=== PATIENT | female | born 2005 | race Caucasian/White ===

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

== ENCOUNTER 2024-01-27 14:55 | Outpatient (OUT) | payer BC, SELFPAY ==
[2024-01-27 15:23] LABS: Bilirubin Urine NEGATIVE (NEGATIVE); Blood Urine NEGATIVE (NEGATIVE); Clarity Urine CLEAR (CLEAR); Color Urine LT. YELLOW (YELLOW); Glucose Urine UA NEGATIVE (NEGATIVE); Ketones Urine NEGATIVE (NEGATIVE); Leukocyte Esterase Urine NEGATIVE (NEGATIVE); Nitrite Urine NEGATIVE (NEGATIVE); Protein Urine NEGATIVE (NEG/TRACE); Urobilinogen Urine 0.2 EU/dL (0.2-1.0)
[2024-01-27 15:25] LABS: Urine Microscopic Indicated NO
== END 2024-01-27 14:56 | disposition home or self-care (01) ==
LOC: LAB 14:56
PROVIDERS: PCP Nurse Practitioner; Visit Provider Nurse Practitioner
DX: N30.00 Acute cystitis without hematuria (principal)
CPT/HCPCS: 81003; 87086

== ENCOUNTER 2024-02-20 19:09 | Emergency (ER) | payer BC, SELFPAY ==
--- OUTSIDE RECORDS SUMMARY | 2024-02-20 19:15 | XMS_ITS | CCD ---
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 Mechanic Name Role Phone JEFFERY DELAROSA Unavailable Unavailable WayRené richey Attending Unavailable Waynar Merritt Mariah Referring Unavailable Waynar, Merritt Mariah Primary Care Unavailable Marino Espino Attending Unavailabl e SrinivasMarino Referring Unavailabl e Waynar, Merritt Mariah Primary Care Unavailable Ramon, Lula Aparicio Attending Unavailable Ramon, Lula Aparicio Referring Unavailable Ramon, Lula Alessandra Primary Care Unavailable Marino Espino Attending Unavailabl e SrinivasMarino Referring Unavailabl e Ramon, Lula Alessandra Primary Care Unavailable Marino Espino Attending Unavailabl e Marino Espino Referring Unavailabl e Ramon, Lula Alessandra Primary Care Unavailable Ramon, Lula Aparicio Attending Unavailable Ramon, Lula Alessandra Referring Unavailable Ramon, Lula Alessandra Primary Care Unavailable Ramon, Lula Aparicio Attending Unavailable Ramon, Lula Aparicio Referring Unavailable Ramon, Lula Alessandra Primary Care Unavailable Marino Espino Attending Unavailabl e Ramon, Lula Alessandra Primary Care Unavailable Ramon, Lula A Unavailable Unavailable Bourisseau, John Unavailable Unavailable Ramon, Lula A Unavailable Unavailable Ramon, Lula A Unavailable Unavailable Bourisseau, John Unavailable Unavailable Linda Whitmore Unavailable Unavailable Ramon, Lula A Unavailable Unavailable Marino Espino Unavailable Unavailable Ramon, Lula A Unavailable Unavailable Unavailable Ramon, Lula A Unavailable Unavailable Unavailable Unknown, Unknown Unavailable Unavailable AICHHOLZ, DENTAL FLOSS PACKER KIM Primary Care Unavailable AUSTYN, DR ASHFORD Consulting Unavailable AUSTYN, DR ASHFORD Attending Unavailable AUSTYN, DR ASHFORD Admitting Unavailable SHERRELL BOWEN Consulting Unavailable AICHHOLZ, DENTAL FLOSS PACKER KIM Primary Care Unavailable AICHHOLZ, DENTAL FLOSS PACKER KIM Consulting Unavailable AICHHOLZ, DENTAL FLOSS PACKER KIM Attending Unavailable AICHHOLZ, DENTAL FLOSS PACKER KIM Admitting Unavailable AICHHOLZ, DENTAL FLOSS PACKER KIM Primary Care Unavailable AICHHOLZ, DENTAL FLOSS PACKER KIM Consulting Unavailable AICHHOLZ, DENTAL FLOSS PACKER KIM Attending Unavailable AICHHOLZ, DENTAL FLOSS PACKER KIM Admitting Unavailable Hari ZARAGOZA, [facility] Primary Care Provider RODRIGUEZ WEAVER Attending Unavailab le AICHHOLZ, KIM Referring Unavailable AICHHOLZ, KIM Attending Unavailable RODRIGUEZ WEAVER Attending Unavailab le AICHHOLZ, KIM Attending Unavailable AICHHOLZ, KIM Attending Unavailable CHELSEA CALIX Attending Unavailable CALIX, CHELSEA Velasquez Attending Unavailable AICHHOLZ, KIM Attending Unavailable DANIELLE-TYSERODRIGUEZ Hill Attending Unavailab CHELSEA Kline Attending Unavailable AICHHOLZ, KIM Attending Unavailable RODRIGUEZ WEAVER Attending Unavailab Lolita Saba Attending Unavailable Allergies Allergy Classification Reported Allergen(s) Allergy Type Date of Onset Reaction(s) Facility Sulfamethoxazole / Trimethoprim (3 sources) Sulfamethoxazole / Trimethoprim; Translations: [Bactrim] Drug Allergy Rash [facility] Work Phone: (20 sources) Sulfamethoxazole / Trimethoprim; Translations: [Bactrim] Drug Allergy 4 Rash [facility] Repository (3 sources) Sulfamethoxazole / Trimethoprim Drug Allergy 3 Rash, Other [facility] Medications Current Medications Medication Drug Class(es) Dates Sig (Normalized) Sig (Original) Ethinyl Estradiol / Levonorgestrel (3 sources) Progestin, Estrogen, Progestin-containin g Intrauterine Device Start: 04-24-2023 levonorgestrel-e thinyl estradiol (Jolessa) 0.15-0.03 MG tablet Indications: Uses control Take 1 tablet by mouth 1 (one) time each day at the same time. 28 tablet 0 04/24/2023 Active FLUoxetine 20 mg oral capsule (20 sources) Serotonin Reuptake Inhibitor Start: 07-06-2023 take 2 capsules by mouth once daily FLUoxetine (PROzac) 20 MG capsule Indications: Anxiety TAKE 2 CAPSULES BY MOUTH DAILY 60 capsule 1 07/06/2023 Active Start: 05-10-2018 take 2 capsules by m outh once daily FLUoxetine HCl - 20 MG Oral Capsule 2 po daily Quantity: 180 Refills: 1 Ordered: 18-Jul-2022 Becky WHITEN-DINING CAR WAITER/WAITRESS, John Start : 10-May-2018 Active Start: 05-10-2018 take 1 capsule by mo ut once daily FLUoxetine HCl - 10 MG Oral Capsule 1 po daily (take with 20 mg) Quantity: 30 Refills: 0 Ordered: 19-Nov-2021 Becky WHITEN-DINING CAR WAITER/WAITRESS, John Start : 10-May-2018 Active Start: 05-10-2018 take 1 capsule by mo [facility] once daily FLUoxetine HCl - 20 MG Oral Capsule 1 po daily (take wtih 10 mg) Quantity: 30 Refills: 0 Ordered: 19-Nov-2021 Becky WHITEN-DINING CAR WAITER/WAITRESS, John Start : 10-May-2018 Active glycopyrrolate 1 mg oral tablet (2 sources) Start: 07-18-2023 take 2 tablets by mouth in the morning glycopyrrolate (Robinul) 1 MG tablet Take 2 mg by mouth in the morning. 0 07/18/2023 Active 24 hr guanFACINE 4 mg extended release oral tablet (20 sources) Central alpha-2 Adrenergic Agonist Start: 03-06-2023 take 1 tablet by mouth every twenty-four hours in the morning guanFACINE (Intuniv) 4 mg 24 hr tablet Take 4 mg by mouth in the morning. 0 03/06/2023 Active Start: 02-27-2017 take 1 tablet by kashif every twenty-four hours in the morning guanFACINE HCl ER 4 MG Oral Tablet Extended Release 24 Hour 1 po in AM Quantity: 90 Refills: 0 Ordered: 18-Jul-2022 Becky PROPERTY MANAGEMENT ACCOUNTANT-DINING CAR WAITER/WAITRESS, John Start : 27-Feb-2017 Active lisdexamfetamine dimesylate 70 mg oral capsule (16 sources) Central Nervous System Stimulant Start: 08-04-2023 End: 09-03-2023 take 1 capsule by mouth in the morning lisdexamfetamine (Vyvanse) 70 MG capsule Indications: ADHD (attention deficit hyperactivity disorder), combined type (CMS/HCC) Take 1 capsule (70 mg) by mouth in the morning. 30 capsule 0 08/04/2023 09/03/2023 Active Start: 02-12-2022 take 1 capsule by mo uth in the morning Vyvanse 70 MG Oral Capsule 1 po at 9 am Quantity: 30 Refills: 0 Ordered: 10-Sep-2022 Jasonurisseau PROPERTY MANAGEMENT ACCOUNTANT-DINING CAR WAITER/WAITRESS, John Start : 15-May-2022 Active Start: 01-23-2022 take 1 capsule by mo uth in the morning Vyvanse 60 MG Oral Capsule 1 po in AM Quantity: 30 Refills: 0 Ordered: 23-Jan-2022 Nikossseau PROPERTY MANAGEMENT ACCOUNTANT-DINING CAR WAITER/WAITRESS, John Start : 23-Jan-2022 Active LORazepam 0.5 mg oral tablet (16 sources) Benzodiazepine Start: 08-13-2023 take 1 tablet by mouth every six hours as needed for anxiety and anxiety and anxiety LORazepam (Ativan) 0.5 MG tablet Indications: Anxiety Take 1 tablet (0.5 mg) by mouth every 6 (six) hours if needed for anxiety 30 tablet 0 08/13/2023 Active Start: 08-13-2023 take 1 tablet by kashif th every six hours as needed for anxiety and anxiety and anxiety LORazepam (Ativan) 0.5 MG tablet Indications: Anxiety Take 1 tablet (0.5 mg) by mouth every 6 (six) hours if needed for anxiety 30 tablet 0 08/13/2023 Active Start: 12-13-2021 LORazepam 0.5 MG Oral Tablet 1/2 - 1 po daily prn anixety Quantity: 30 Refills: 0 Ordered: 18-Jul-2022 Charleseasharath PROPERTY MANAGEMENT ACCOUNTANT-DINING CAR WAITER/WAITRESS, John Start : 13-Dec-2021 Active Start: 12-13-2021 LORazepam 0.5 MG Oral Tablet 1/2 - 1 po BID prn anixety Quantity: 30 Refills: 0 Ordered: 12-Feb-2022 Charleseasharath PROPERTY MANAGEMENT ACCOUNTANT-DINING CAR WAITER/WAITRESS, John Start : 13-Dec-2021 Active End: 08-13-2023 take 1 tablet by mouth every six hours as needed for anxiety LORazepam (Ativan) 0.5 MG tablet Take 0.5 mg by mouth every 6 (six) hours if needed for anxiety. 0 08/13/2023 Discontinued (Reorder) PARoxetine hydrochloride 10 mg oral tablet (2 sources) Serotonin Reuptake Inhibitor Start: 08-13-2023 End: 08-13-2023 PARoxetine (Paxil) 10 MG tablet Indications: Anxiety 1 tablet for one week then increase to 2 tabs 60 tablet 1 08/13/2023 08/13/2023 Discontinued (Reorder) 24 hr divalproex sodium 250 mg extended release oral tablet (3 sources) Mood Stabilizer, Anti-epileptic Agent Start: 12-08-2022 End: 08-13-2023 take 1 tablet by mouth every twenty-four hours at bedtime divalproex (Depakote ER) 250 MG 24 hr tablet Take 250 mg by mouth at bedtime. 0 12/08/2022 08/13/2023 Discontinued Completed/Discontinued Medications Medication Drug Class(es) Dates Sig (Normalized) Sig (Original) acetaminophen 325 mg oral capsule (3 sources) Tylenol 325 MG O ral Capsule Refills: 0 DO Active acetaminophen 21.7 mg/ml / dextromethorphan hydrobromide 0.667 mg/ml / phenylephrine hydrochloride 0.333 mg/ml oral solution (2 sources) Uncompetitive V-xwgtww-X-asparta te Receptor Antagonist, Sigma-1 Agonist, alpha-1 Adrenergic Agonist Vicks DayQuil Cold & Flu 10-5-325 MG/15ML Oral Liquid Quantity: 0 Refills: 0 Ordered: 08-Aug-2020 DO Active 24 hr amphetamine 18.8 mg extended release oral tablet (20 sources) Central Nervous System Stimulant Start: 08-27-2020 take 1 tablet by mouth in the morning Adzenys XR-ODT 18.8 MG Oral Tablet Extended Release Disintegrating 1 po in AM Quantity: 30 Refills: 0 Ordered: 04-Sep-2021 Renzo Maney Start : 21-Nov-2020 Active Start: 12-09-2019 take 1 tablet by kashif th in the morning Adzenys XR-ODT 18.8 MG Oral Tablet Extended Release Disintegrating 1 po in AM Quantity: 30 Refills: 0 Becky SANABRIA-John BEGUM Start : 09-Dec-2019 Active Start: 10-17-2019 take 1 tablet by kashif th in the morning Adzenys XR-ODT 18.8 MG Oral Tablet Extended Release Disintegrating 1 po in AM Quantity: 30 Refills: 0 Becky SANABRIA-John BEGUM Start : 17-Oct-2019 Active Start: 08-12-2019 take 1 tablet by kashif th in the morning Adzenys XR-ODT 18.8 MG Oral Tablet Extended Release Disintegrating 1 po in AM Quantity: 30 Refills: 0 Becky SANABRIA-SHY John Start : 12-Aug-2019 Active Start: 03-30-2017 take 1 tablet by kashif th in the morning Adzenys XR-ODT 18.8 MG Oral Tablet Extended Release Disintegrating 1 po in AM Quantity: 30 Refills: 0 Becky SANABRIA-SHY John Start : 30-Mar-2017 Active amphetamine aspartate 2.5 mg / amphetamine sulfate 2.5 mg / dextroamphetamine saccharate 2.5 mg / dextroamphetamine sulfate 2.5 mg oral tablet (19 sources) Central Nervous System Stimulant Start: 07-20-2017 take 1 tablet by mouth once daily Amphetamine-Dextroamphetamine 10 MG Oral Tablet TAKE 1 TABLET BY MOUTH EVERY DAY at 1:00pm Quantity: 30 Refills: 0 Ordered: 12-Jul-2021 Becky SANABRIA-John BEGUM Start : 20-Jul-2017 Active cefdinir 300 mg oral capsule (19 sources) Cephalosporin Antibacterial Start: 03-25-2021 take 1 capsule by mouth twice daily Cefdinir 300 MG Oral Capsule TAKE 1 CAPSULE TWICE DAILY UNTIL GONE. Quantity: 20 Refills: 0 Ordered: 25-Mar-2021 Sania ZARAGOZA, Marino Kumar Start : 25-Mar-2021 Active doxycycline hyclate 100 mg oral capsule (1 source) Tetracycline-cla ss Drug Start: 04-20-2020 take 1 capsule by mouth once daily at mealtime Doxycycline Hyclate 100 MG Oral Capsule TAKE 1 CAPSULE BY MOUTH EVERY DAY WITH FOOD Quantity: 30 Refills: 0 Ordered: 20-Apr-2020 DO Start : 20-Apr-2020 Complete hydrocortisone 25 mg/ml topical cream (1 source) Corticosteroid Start: 02-07-2020 Hydrocortisone 2.5 % Externa l Cream APPLY to rash on face TWICE DAILY FOR 3 WEEKS then NEEDED Quantity: 28 Refills: 0 Ordered: 19-Apr-2020 DO Start : 07-Feb-2020 Complete ibuprofen 200 mg oral tablet (20 sources) Nonsteroidal Anti-inflammator y Drug Ibuprofen 200 MG Ora l Tablet Quantity: 0 Refills: 0 Ordered: 22-Mar-2021 DO Active Ibuprofen 100 MG /5ML Oral Suspension Refills: 0 DO Active melatonin 10 mg oral tablet (20 sources) Melatonin 10 MG Oral Tablet Quantity: 0 Refills: 0 Ordered: 08-Aug-2020 DO Active ofloxacin 3 mg/ml ophthalmic solution (13 sources) Quinolone Antimicrobial Start: 08-09-19 take 1 drop(s) into the eye(s) three times daily Ofloxacin 0.3 % Ophthalmic Solution Instill 1 drop into affected eye 3 times per day for 5 days Quantity: 1 Refills: 1 Ordered: 09-Aug-2021 Lula Navarro MD Start : 09-Aug-2021 Active progesterone 200 mg oral capsule (4 sources) Progesterone Start: 12-02-19 19 take 1 capsule by mouth once daily at bedtime Progesterone Micronized 200 MG Oral Capsule TAKE 1 CAPSULE BY MOUTH EVERY DAY AT BEDTIME FOR 10 DAYS Quantity: 30 Refills: 1 Lula Navarro MD Start : 01-Dec-2018 Active traZODone hydrochloride 50 mg oral tablet (17 sources) Serotonin Reuptake Inhibitor Start: 02-08-20 End: 08-13-19 24 traZODone HCl - 50 MG Oral Tablet 1 1/2 po at night Quantity: 45 Refills: 5 Ordered: 12-Feb-2021 John Mane Start : 08-Feb-2020 Active triamcinolone acetonide 1 mg/ml topical cream (20 sources) Corticosteroid Start: 12-27-19 20 Triamcinolone Acetonide 0.1 % External Cream APPLY AND RUB IN A THIN FILM TO AFFECTED AREAS TWICE DAILY.(AM AND PM). Quantity: 1 Refills: 1 Ordered: 27-Dec-2019 Mraino Lui MD Start : 27-Dec-2019 Active Problems Active Problems Problem Classification Problem Date Documented Date Episodic/Chronic Abdominal pain (4 sources) Pelvic and perineal pain; Translations: [PELVIC AND PERINEAL PAIN] Onset: 3 Episodic Allergic reactions (20 sources) Eczema; Translations: [Contact dermatitis and other eczema, unspecified cause] Episodic Anxiety disorders (20 sources) Panic attack; Translations: [Anxiety disorder] Onset: 3 05-26-2023 Chronic Comment on above: SERTRALINE STARTED 2 014. CURRENT DOSE 100 MG DAILY; Attention-deficit conduct and disruptive behavior disorders (20 sources) Attention deficit hyperactivity disorder, combined type; Translations: [Attention deficit disorder with hyperactivity] Onset: 3 05-26-2023 Chronic Comment on above: DIAGNOSED 02/2011. CU RRENT MEDS: AMPHETAMINE-DEXTROAMPHETAMINE 40 MG ( 30+10 ). QUANFACINE 2 MG; Attention-deficit, conduct, and disruptive behavior disorders (1 source) Attention-deficit hyperactivity disorder, unspecified type; Translations: [ADHD UNSPECIFIED TYPE] Onset: 3 Chronic Bacterial infection; unspecified site (1 source) Personal history of Methicillin resistant Staphylococcus aureus infection; Translations: [PERS HX METHICILLIN RSIST STAPH INF] Onset: 3 Episodic Blindness and vision defects (20 sources) Wears glasses; Translations: [Other specified conditions influencing health status] Episodic Disorders of lipid metabolism (20 sources) Mixed hypercholesterolemia and hypertriglyceridemia; Translations: [Mixed hyperlipidemia] Chronic Disorders usually diagnosed in infancy, childhood, or adolescence (3 sources) Autism spectrum disorder; Translations: [Autistic disorder] Onset: 3 05-26-2023 Chronic Menstrual disorders (20 sources) Oligomenorrhea; Translations: [Scanty or infrequent menstruation] Chronic Nutritional deficiencies (20 sources) Vitamin D deficiency; Translations: [Unspecified vitamin D deficiency] Chronic Other injuries and conditions due to external causes (5 sources) Open wound; Translations: [History of Bite or sting by insect] Episodic Other nutritional; endocrine; and metabolic disorders (4 sources) Childhood obesity; Translations: [BMI (body mass index), pediatric, greater than or equal to 95% for age] Chronic Other nutritional; endocrine; and metabolic disorders (20 sources) 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; Translations: [Dysmetabolic syndrome X] Chronic Comment on above: METFORMN 500 MG BID STARTED 08/2015; Other nutritional; endocrine; and metabolic disorders (20 sources) Lipids abnormal; Translations: [Unspecified disorder of lipoid metabolism] Chronic Other nutritional; endocrine; and metabolic disorders (4 sources) Metabolic syndrome; Translations: [METABOLIC SYNDROME] Onset: 2 Chronic Other nutritional; endocrine; and metabolic disorders (1 source) Morbid (severe) obesity due to excess calories; Translations: [MORBID SEVERE OBES D/T EXCESS CANDACE] Onset: 2 Chronic Other nutritional; endocrine; and metabolic disorders (3 sources) Body mass index 30+ - obesity; Translations: [Obesity, unspecified] Onset: 3 05-26-2023 Chronic Other nutritional; endocrine; and metabolic disorders (5 sources) 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; Translations: [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] Episodic Other nutritional; endocrine; and metabolic disorders (20 sources) Abnormal weight gain; Translations: [Abnormal weight gain] Episodic Other nutritional; endocrine; and metabolic disorders (20 sources) Childhood obesity; Translations: [Body Mass Index, pediatric, greater than or equal to 95th percentile for age] Episodic Other skin disorders (20 sources) Acanthosis nigricans; Translations: [Acquired acanthosis nigricans] Episodic Other upper respiratory disease (20 sources) Allergic rhinitis; Translations: [Allergic rhinitis, cause unspecified] Chronic Other upper respiratory infections (20 sources) Acute pharyngitis; Translations: [Acute upper respiratory infection] Resolved: Episodic Comment on above: Added by Problem Lis t Migration; 2013-06-03; Otitis media and related conditions (20 sources) Otitis; Translations: [Otitis media] Resolved: Episodic Residual codes; unclassified (4 sources) Lipids abnormal; Translations: [Lipids abnormal] Episodic Screening and history of mental health and substance abuse codes (20 sources) H/O: psychiatric disorder; Translations: [Personal history of other mental disorders] Episodic Skin and subcutaneous tissue infections (20 sources) Abscess; Translations: [Impetigo] Episodic Comment on above: MRSA BUTTOCK 08/2015; Unclassified (3 sources) CONTACT W/AND (SUSP) EXPOS COVID-19; Translations: [CONTACT W/AND (SUSP) EXPOS COVID-19] Onset: 2 Past or Other Problems Problem Classification Problem Date Documented Da te Episodic/Chronic Chronic obstructive pulmonary disease and bronchiectasis (20 sources) Laryngotracheobronc hitis; Translations: [Bronchitis, not specified as acute or chronic] Resolved: 06-03-2017 Episodic Inflammation; infection of eye (except that caused by tuberculosis or sexually transmitteddisease) (13 sources) Acute infectious conjunctivitis; Translations: [Other mucopurulent conjunctivitis] Resolved: 08-16-2021 Episodic Miscellaneous mental health disorders (20 sources) Emotional upset; Translations: [Other adjustment reactions with predominant disturbance of other emotions] Resolved: 08-19-2018 Chronic Mood disorders (3 sources) Depressive disorder; Translations: [Depression] Onset: 05-26-2023 Resolved: 05-26-2023 05-26-2023 Chronic Mycoses (20 sources) Candidiasis of vagina; Translations: [Candidiasis of vulva and vagina] Resolved: 06-03-2017 Episodic Other infections; including parasitic (20 sources) Infestation by Pediculus; Translations: [Pediculosis, unspecified] Resolved: 12-01-2018 Episodic Other infections; including parasitic (1 source) Pediculosis capitis; Translations: [Lice infested hair] Episodic Other injuries and conditions due to external causes (20 sources) Wound ; Translations: [Bite or sting by insect] Resolved: 08-03-2018 Episodic Other lower respiratory disease (20 sources) H/O: respiratory disease; Translations: [Personal history of other diseases of respiratory system] Resolved: 12-02-2019 Episodic Comment on above: Added by Problem Rosa Coleman; 2013-06-03; Other lower respiratory disease (20 sources) History of tonsillitis; Translations: [Personal history of other diseases of respiratory system] Resolved: 02-11-2018 Episodic Other lower respiratory disease (20 sources) History of clinical finding in subject; Translations: [Personal history of other diseases of respiratory system] Resolved: 12-01-2018 Episodic Other nervous system disorders (20 sources) History of otitis media; Translations: [Personal history of other disorders of nervous system and sense organs] Resolved: 06-03-2017 Episodic Other skin disorders (20 sources) Eruption; Translations: [Rash and other nonspecific skin eruption] Resolved: 08-03-2018 Episodic Other skin disorders (20 sources) H/O: skin disorder; Translations: [Personal history of diseases of skin and subcutaneous tissue] Resolved: 12-02-2019 Episodic Other skin disorders (20 sources) Localized eruption of skin; Translations: [Rash and other nonspecific skin eruption] Resolved: 08-03-2018 Episodic Other skin disorders (5 sources) Localized eruption of skin; Translations: [History of Localized skin eruption] Unclassified (4 sources) History of clinical finding in subject; Translations: [History of sore throat] Unclassified (4 sources) Patient encounter status; Translations: [Encounter for routine child health examination without abnormal findings] Unclassified (1 source) CONTACT W/AND (SUSP) EXPOS COVID-19; Translations: [CONTACT W/AND (SUSP) EXPOS COVID-19] Onset: 03-11-2022 Viral infection (20 sources) Influenza-like illness; Translations: [Influenza with other respiratory manifestations] Resolved: 12-01-2018 Episodic NEGATED: Highlighted row has not occurred!Residual codes; unclassified (20 sources) Disease Episodic Results Test Name Value Interpretation Reference Range Facility CULTURE URINEon 08-06-2022 CULTURE URINE Culture Observations : MODERATE GROWTH OF MIXED GENITAL ENIO. NO POTENTIAL PATHOGENS SEEN. Normal [facility] Comment on above: Performed By: #### U RCX #### [facility] [address] [place] [address] Dr. Chayito Rucker ER URINE PROFILEon 3 Bilirubin Ql (U) Negative Normal NEGATIVE [facility] Comment on above: Performed By: #### C BC #### [facility] [address] [place] [address] Dr. Chayito Rucker Clarity (U) CLEAR Normal CLEAR [facility] Comment on above: Performed By: #### C BC #### [facility] [address] [place] [address] Dr. Chayito Rucker Color (U) LT. YELLOW Normal YELLOW [facility] Comment on above: Performed By: #### C BC #### [facility] [address] [place] [address] Dr. Chayito Rucker ERUAHD A micrscopic examina tion will be performed if indicated. Normal [facility] Comment on above: Performed By: #### C BC #### [facility] [address] [place] [address] Dr. Chayito Rucker Glucose Ql (U) Negative Normal NEGATIVE [facility] Comment on above: Performed By: #### C BC #### [facility] [address] [place] [address] Dr. Chayito Rucker Hemoglobin Ql (U) Negative Normal NEGATIVE [facility] Comment on above: Performed By: #### C BC #### [facility] [address] [place] [address] Dr. Chayito Rucker Ketones Ql (U) Negative Normal NEGATIVE [facility] Comment on above: Performed By: #### C BC #### [facility] [address] [place] [address] Dr. Chayito Rucker LEUKOCYTES SMALL Abnormal NEGATIVE [facility] Comment on above: Performed By: #### C BC #### [facility] [address] [place] [address] Dr. Chayito Rucker Nitrite Ql (U) Negative Normal NEGATIVE [facility] Comment on above: Performed By: #### C BC #### [facility] [address] [place] [address] Dr. Chayito Rucker pH (U) 7.5 [pH] Normal 5-9 [facility] Comment on above: Performed By: #### C BC #### [facility] [address] [place] [address] Dr. Chayito Rucker SPEC GRAVITY 1.010 Normal 1.005-<=1.0 25 [facility] Comment on above: Performed By: #### C BC #### [facility] [address] [place] [address] Dr. Chayito Rucker UA PROTEIN Negative Normal NEGATIVE/ TRACE [facility] Comment on above: Performed By: #### C BC #### [facility] [address] [place] [address] Dr. Chayito Rucker UR MICRO IND NOT INDICATED Normal [facility] Comment on above: Performed By: #### C BC #### [facility] [address] [place] [address] Dr. Chayito Rucker Urobilinogen Qn (U) 0.2 {Faye'U}/dL Normal 0.2 - 1.0 [facility] [facility] Comment on above: Performed By: #### C BC #### [facility] [address] [address] [address] Chayito Rucker US PELVISon 08-06-2022 US PELVIS EXAMINATION: US PELV IS, 08/06/2022 1:34 PM EST HISTORY: Acute pelvic pain COMPARISON: None. TECHNIQUE: Ultrasound examination of the pelvis was performed transabdominally. FINDINGS: UTERUS: Anteverted. Normal size. No mass. Uterine size: 5.3 x 2.1 x 3.2 cm ENDOMETRIUM: No visualized abnormal thickening noting limitations of transabdominal technique. Maximum thickness: 4 mm RIGHT OVARY/ADNEXA: Grossly unremarkable. Resistive index of 0.2. Ovarian size: 1.7 x 1.9 x 2.4 cm; 4.0 ml LEFT OVARY/ADNEXA: Grossly unremarkable noting probable anechoic physiologic cyst. Resistive index of 0.5. Ovarian size: 2.7 x 1.6 x 2.3 cm; 5.1 mL FLUID: There is no abnormal free fluid in the cul-de-sac. IMPRESSION: Grossly unremarkable transabdominal pelvic sonogram. Electronically authenticated by: SHERRELL BOWEN Date: 2022-08-06 15:24 Normal [facility]27 SARS-CoV-2 (COVID-19) RNA OMI+probe Ql (Unsp spec) Not detected Normal NOT DETECTED [facility] Comment on above: Result Comment: When diagnostic testing is negative, the possibility of a false negative should be considered in the context of a patient's recent exposures and the presence of clinical signs and symptoms consistent with SARS-CoV-2. This test is not yet approved or cleared by the [place] FDA. When there are no FDA-approved or cleared tests available, and other criteria are met, FDA can make tests available under an emergency access mechanism called an Emergency Use Authorization (EUA). The EUA for this test is supported by the [place] of Health and Human Service's declaration that circumstances exist to justify the emergency use of in vitro diagnostics for the detection and/or diagnosis of the virus that causes COVID-19. This EUA will remain in effect for the duration of the COVID-19 declaration justifying emergency of IVDs, unless it is terminated or revoked by the FDA (after which the test may no longer be used). Performed By: #### C VDTB #### [facility] [address] [place] [address] Dr. Chayito Rucker INSULIN FREE AND TOTALon Free Insulin 24 uU/mL Critically high [facility] Comment on above: Result Comment: Refe ariel Range: Pubertal Children and Adults (fasting): 0 - 17 Performed By: #### I NSULT #### [facility] [address] [place] [address] Dr. Chayito Rucker Total Insulin 24 uU/mL Normal [facility] Comment on above: Result Comment: Non- Diabetic: In the absence of insulin- binding antibodies, the free and total insulin assays are equivalent. However, this assay is intended for use in diabetics with insulin autoantibody present. Measurement is performed on acid-treated samples and, therefore, the sensitivity and absolute values by this method may differ from our direct insulin ICMA. Insulin Dependent Diabetic Patients: Free Insulin levels vary depending on the capacity and affinity of circulating insulin-binding antibodies and the dose of insulin given to the patient. Total insulin levels represent free insulin and antibody bound insulin fractions. This test was developed and its performance characteristics determined by [employer]. It has not been cleared or approved by the Food and Drug Administration. Performed By: #### I NSULT #### [facility] [address] [place] [address] Dr. Chayito Rucker CBC AUTO DIFFon 11-15-2021 BASO # 0.0 103/ul Normal 0.0-0.1 [facility] Comment on above: Performed By: #### C BC #### [facility] [address] [place] [address] Dr. Chayito Rucker Basophils/100 WBC (Bld) 0.3 % Normal 0.2-2.0 [facility] Comment on above: Performed By: #### C BC #### [facility] [address] [place] [address] Dr. Chayito Rucker EO # 0.1 103/ul Normal 0.0-0.7 [facility] Comment on above: Performed By: #### C BC #### [facility] [address] [place] [address] Dr. Chayito Rucker Eosinophils/100 WBC (Bld) 1.5 % Normal 0.9-7.0 [facility] Comment on above: Performed By: #### C BC #### [facility] [address] [place] [address] Dr. Chayito Rucker Erythrocyte distribution width (RBC) [Ratio] 12.8 % Normal 11.0-15.0 [facility] Comment on above: Performed By: #### C BC #### [facility] [address] [place] [address] Dr. Chayito Rucker Hematocrit (Bld) [Volume fraction] 39.8 % Normal 36.0-48.0 [facility] Comment on above: Performed By: #### C BC #### [facility] [address] [place] [address] Dr. Chayito Rucker Hemoglobin (Bld) [Mass/Vol] 12.6 g/dL Normal 12.0-16.0 [facility] Comment on above: Performed By: #### C BC #### [facility] [address] [place] [address] Dr. Chayito Rucker IG # 0.03 10e3/ul Normal 0.00-0.03 [facility] Comment on above: Performed By: #### C BC #### [facility] [address] [place] [address] Dr. Chayito Rucker IG % 0.3 % Normal 0.0-0.5 [facility] Comment on above: Performed By: #### C BC #### [facility] [address] [place] [address] Dr. Chayito Rucker LYMPH # 3.7 103/ul Normal 1.2-3.8 [facility] Comment on above: Performed By: #### C BC #### [facility] [address] [place] [address] Dr. Chayito Rucker Lymphocytes/100 WBC (Bld) 40.6 % Normal 20.5-60.0 [facility] Comment on above: Performed By: #### C BC #### [facility] [address] [place] [address] Dr. Chayito Rucker MANUAL DIFF REQ NO Normal [facility] Comment on above: Performed By: #### C BC #### [facility] [address] [place] [address] Dr. Chayito Rucker MCH (RBC) [Entitic mass] 30.7 pg Normal 26.7-34.0 [facility] Comment on above: Performed By: #### C BC #### [facility] [address] [place] [address] Dr. Chayito Rucker MCHC (RBC) [Mass/Vol] 31.7 g/dL Normal 29.9-35.2 [facility] Comment on above: Performed By: #### C BC #### [facility] [address] [place] [address] Dr. Chayito Rucker MCV (RBC) [Entitic vol] 97.1 fL Critically high 79.1-95.6 [facility] Comment on above: Performed By: #### C BC #### [facility] [address] [place] [address] Dr. Chayito Rucker MONO # 0.5 103/ul Normal 0.3-0.8 [facility] Comment on above: Performed By: #### C BC #### [facility] [address] [place] [address] Dr. Chayito Rucker Monocytes/100 WBC (Bld) 5.7 % Normal 1.7-12.0 [facility] Comment on above: Performed By: #### C BC #### [facility] [address] [place] [address] Dr. Chayito Rucker NEUT # 4.7 103/ul Normal 1.4-6.5 [facility] Comment on above: Performed By: #### C BC #### [facility] [address] [place] [address] Dr. Chayito Rucker Neutrophils/100 WBC (Bld) 51.6 % Normal 43.0-75.0 [facility] Comment on above: Performed By: #### C BC #### [facility] [address] [place] [address] Dr. Chayito Rucker Platelet mean volume (Bld) [Entitic vol] 11.7 fL Normal 9.5-13.5 [facility] Comment on above: Performed By: #### C BC #### [facility] [address] [place] [address] Dr. Chayito Rucker PLT 211 103/ul Normal 150-450 [facility] Comment on above: Performed By: #### C BC #### [facility] [address] [place] [address] Dr. Chayito Rucker RBC 4.10 106/ul Normal 3.40-5.30 [facility] Comment on above: Performed By: #### C BC #### [facility] [address] [place] [address] Dr. Chayito Rucker WBC 9.1 103/ul Normal 4.0-11.0 [facility] Comment on above: Performed By: #### C BC #### [facility] [address] [place] [address] Dr. Chayito Rucker FREE T4on 11-15-2021 Free T4 [Mass/Vol] 0.94 ng/dL Normal 0.78-1.34 [facility] Comment on above: Performed By: #### F T4 #### [facility] [address] [place] [address] Dr. Chayito Rucker GLYCOHEMOGLOBIN A1Con 2021 ADA RECOMMENDATION SEE BELOW Normal [facility] Comment on above: Result Comment: ADA RECOMMENDED LIMIT 4.0 - 6.0 ADA THERAPEUTIC TARGET < 7.0 ACTION SUGGESTED > 7.0 Performed By: #### A 1C #### [facility] [address] [place] [address] Dr. Chayito Rucker Glucose [Mass/Vol] 108 mg/dL Normal [facility] Comment on above: Performed By: #### A 1C #### [facility] [address] [place] [address] Dr. Chayito Rucker HbA1c (Bld) [Mass fraction] 5.4 % Normal 4.5-6.2 [facility] Comment on above: Performed By: #### A 1C #### [facility] [address] [place], [place] [id number] Dr. Chayito Rucker LIPID PROFILEon 11-15-2021 CHOL-HDL RATIO NORM SEE BELOW Normal [facility] Comment on above: Result Comment: 3.3 - 4.4 LOW RISK 4.4 - 7.1 AVERAGE RISK 7.1 - 11.0 MODERATE RISK >11.0 HIGH RISK Performed By: #### L IPID, TSH, CMP #### [facility] [address] [address] [address] Chayito Rucker Cholesterol [Mass/Vol] 199 mg/dL Normal 104-227 [facility] Comment on above: Performed By: #### L IPID, TSH, CMP #### [facility] [address] [place] [address] Dr. Chayito Rucker Cholesterol in HDL [Mass/Vol] 40 mg/dL Normal 29-69 [facility] Comment on above: Performed By: #### L IPID, TSH, CMP #### [facility] [address] [place] [address] Dr. Chayito Rucker Cholesterol in LDL [Mass/Vol] 121.8 mg/dL Normal 46.0-140.0 [facility] Comment on above: Performed By: #### L IPID, TSH, CMP #### [facility] [address] [place] [address] Dr. Chayito Rucker Cholesterol.total /Cholesterol in HDL [Mass ratio] 5.0 {ratio} Normal [facility] Comment on above: Performed By: #### L IPID, TSH, CMP #### [facility] [address] [place] [address] Dr. Chayito Rucker HDL NORMAL > or = 60 mg/dl - LO W CARDIOVASCULAR RISK <40 mg/dl - HIGH CARDIOVASCULAR RISK Normal [facility] Comment on above: Performed By: #### L IPID, TSH, CMP #### [facility] [address] [place] [address] Dr. Chayito Rucker LDL CALC NORMAL SEE BELOW Normal [facility] Comment on above: Result Comment: <100 mg/dl OPTIMAL 100 - 129 mg/dl NEAR OR ABOVE OPTIMAL 130 - 159 mg/dl BORDERLINE HIGH 160 - 189 mg/dl HIGH >190 mg/dl VERY HIGH Performed By: #### L IPID, TSH, CMP #### [facility] [address] [address] [address] Chayito Rucker Triglyceride [Mass/Vol] 186 mg/dL Normal 53-208 [facility] Comment on above: Performed By: #### L IPID, TSH, CMP #### [facility] [address] [address] [address] Chayito Rucker VLDL CALC 37.2 mg/dL Normal [facility] Comment on above: Performed By: #### L IPID, TSH, CMP #### [facility] [address] [address] [address] Chayito Rucker PROF 14(COMP METB)on 022 Albumin [Mass/Vol] 3.5 g/dL Normal 3.4-5.0 [facility] Comment on above: Performed By: #### L IPID, TSH, CMP #### [facility] [address] [place] [address] Dr. Chayito Rucker Albumin/Globulin [Mass ratio] 0.9 {ratio} Normal [facility] Comment on above: Performed By: #### L IPID, TSH, CMP #### [facility] [address] [place] [address] Dr. Chayito Rucker ALP [Catalytic activity/Vol] 74 U/L Normal 65-260 [facility] Comment on above: Performed By: #### L IPID, TSH, CMP #### [facility] [address] [place] [address] Dr. Chayito Rucker ALT [Catalytic activity/Vol] 49 U/L Normal 14-59 [facility] Comment on above: Performed By: #### L IPID, TSH, CMP #### [facility] [address] [place] [address] Dr. Chayito Rucker Anion gap [Moles/Vol] 15.2 mmol/L Normal [facility] Comment on above: Performed By: #### L IPID, TSH, CMP #### [facility] [address] [place] [address] Dr. Chayito Rucker AST [Catalytic activity/Vol] 30 U/L Normal 15-37 [facility] Comment on above: Performed By: #### L IPID, TSH, CMP #### [facility] [address] [place] [address] Dr. Chayito Rucker Bilirubin [Mass/Vol] 0.4 mg/dL Normal 0.2-1.0 [facility] Comment on above: Performed By: #### L IPID, TSH, CMP #### [facility] [address] [place] [address] Dr. Chayito Rucker Calcium [Mass/Vol] 8.6 mg/dL Normal 8.5-10.1 [facility] Comment on above: Performed By: #### L IPID, TSH, CMP #### [facility] [address] [place] [address] Dr. Chayito Rucker Chloride [Moles/Vol] 102 mmol/L Normal 98-107 [facility] Comment on above: Performed By: #### L IPID, TSH, CMP #### [facility] [address] [place] [address] Dr. Chayito Rucker CO2 [Moles/Vol] 23.8 mmol/L Normal 21.0-32.0 [facility] Comment on above: Performed By: #### L IPID, TSH, CMP #### [facility] [address] [place] [address] Dr. Chayito Rucker Creatinine [Mass/Vol] 0.58 mg/dL Normal 0.55-1.02 [facility] Comment on above: Performed By: #### L IPID, TSH, CMP #### [facility] [address] [place] [address] Dr. Chayito Rucker Globulin (S) [Mass/Vol] 3.8 g/dL Normal [facility] Comment on above: Performed By: #### L IPID, TSH, CMP #### [facility] [address] [place] [address] Dr. Chayito Rucker Glucose [Mass/Vol] 96 mg/dL Normal 74-106 [facility] Comment on above: Performed By: #### L IPID, TSH, CMP #### [facility] [address] [place] [address] Dr. Chayito Rucker Potassium [Moles/Vol] 4.0 mmol/L Normal 3.5-5.1 [facility] Comment on above: Performed By: #### L IPID, TSH, CMP #### [facility] [address] [place] [address] Dr. Chayito Rucker Protein [Mass/Vol] 7.3 g/dL Normal 6.4-8.2 [facility] Comment on above: Performed By: #### L IPID, TSH, CMP #### [facility] [address] [place] [address] Dr. Chayito Rucker Sodium [Moles/Vol] 137 mmol/L Normal 136-145 [facility] Comment on above: Performed By: #### L IPID, TSH, CMP #### [facility] [address] [place] [address] Dr. Chayito Rucker Urea nitrogen [Mass/Vol] 13.0 mg/dL Normal 6.4-19.3 [facility] Comment on above: Performed By: #### L IPID, TSH, CMP #### [facility] [address] [place] [address] Dr. Chayito Rucker Urea nitrogen/Creatini ne [Mass ratio] 22.4 mg/mg Normal [facility] Comment on above: Performed By: #### L IPID, TSH, CMP #### [facility] [address] [place] [address] Dr. Chayito Rucker TSHon 11-15-2021 TSH 2.064 uIU/mL Normal 0.516-4.130 [facility] Comment on above: Performed By: #### L IPID, TSH, CMP #### [facility] [address] [place] [address] Dr. Chayito Rucker TSH RANGE SEE BELOW Normal [facility] Comment on above: Result Comment: <0.3 4 UIU/ml HYPERTHYROID 0.34-5.60 UIU/ml EUTHYROID >5.60 UIU/ml HYPOTHYROID Performed By: #### L IPID, TSH, CMP #### [facility] [address] [address] [address] Chayito Rucker Chart Updateon 07-12-2021 Chart Update Diagnoses/Problems Acute bacterial conjunctivitis of both eyes (372.03) (H10.33) Orders Acute bacterial conjunctivitis of both eyes Start: Ofloxacin 0.3 % Ophthalmic Solution; Instill 1 drop into affected eye 3 times per day for 5 days Rx By: Lula Navarro; Dispense: 0 Days ; #:1 X 10 ML Bottle; Refill: 1;For: Acute bacterial conjunctivitis of both eyes; ERIC = N; Sent To: [facility] Attention deficit hyperactivity disorder (ADHD), combined type Renew: Adzenys XR-ODT 18.8 MG Oral Tablet Extended Release Disintegrating; 1 po in AM Rx By: John Pena; Dispense: 30 Days ; #:30 Tablet; Refill: 0;For: Attention deficit hyperactivity disorder (ADHD), combined type; ERIC = N; Verified Transmission to [facility]; Last Updated By: [employer]; 07/12/2021 1:50:49 PM Renew: Adzenys XR-ODT 18.8 MG Oral Tablet Extended Release Disintegrating; 1 po in AM Rx By: John Pena; Dispense: 30 Days ; #:30 Tablet; Refill: 0;For: Attention deficit hyperactivity disorder (ADHD), combined type; ERIC = N; Verified Transmission to [facility]; Last Updated By: [employer]; 07/13/2021 7:45:02 AM Renew: Adzenys XR-ODT 18.8 MG Oral Tablet Extended Release Disintegrating; 1 po in AM Rx By: John Pena; Dispense: 30 Days ; #:30 Tablet; Refill: 0;For: Attention deficit hyperactivity disorder (ADHD), combined type; ERIC = N; Verified Transmission to [facility]; Last Updated By: [employer]; 07/13/2021 7:45:44 AM Renew: Amphetamine-Dextroamphetam ine 10 MG Oral Tablet; TAKE 1 TABLET BY MOUTH EVERY DAY at 1:00pm Rx By: John Pena; Dispense: 30 Days ; #:30 Tablet; Refill: 0;For: Attention deficit hyperactivity disorder (ADHD), combined type; ERIC = N; [id number]; Last Updated By: [employer]; 07/12/2021 1:50:34 PM Chart Update phone with mother. Misha woke up this am with crusty, itchy and red eyes. I will call Ofloxacin Signatures Electronically signed by : Lula Navarro MD; Aug 09 2021 8:43AM EST (Author) Normal [facility] 06-14on 0 03-25-2021 Pediatric Medicine 06-14 Diagnosis/Problems Assessed URI, acute (465.9) (J06.9) Acute bilateral otitis media (382.9) (H66.93) Orders Acute bilateral otitis media, URI, acute Start: Cefdinir 300 MG Oral Capsule; TAKE 1 CAPSULE TWICE DAILY UNTIL GONE Rx By: Marino Espino; Dispense: 10 Days ; #:20 Capsule; Refill: 0;For: Acute bilateral otitis media, URI, acute; ERIC = N; Verified Transmission to [facility]; Last Updated By: [employer]; 03/25/2021 4:43:04 PM Patient Discussion/Summary covid antigen test faxed to [facility]. stay at home until resulted and or improved call back if worse or not improved as discussed I willl call with fu test results tomorrow FOLLOW-UP: Call or return to clinic if worse, new symptoms, or not improved in 2-3 days. Chief Complaint earache History of Present Illness Reported by patient or parent dionna ear pain both the pst days onset: of uir sx 5 days ago congestion nd cough and then marched this weekend worse no dypnea just feeels tired reports loss otast and smell too no known covid exp but it is arog General: No fevers; normal appetite; drinking ok NEURO no headache HEENT otalgia; no sore throat; nasal congestion; nasal discharge past days pulmonary symptoms no increased WOB; cough GI: no abdominal pain; no vomiting; no diarrhea Skin: No rash sleep ok ROS as per HPI. Active Problems Problems Abnormal weight gain (783.1) (R63.5) Acanthosis nigricans (701.2) (L83) Acute bilateral otitis media (382.9) (H66.93) Acute pharyngitis (462) (J02.9) Acute sinusitis (461.9) (J01.90) Added by Problem List Migration; 2013-06-03 Allergic rhinitis (477.9) (J30.9) Anxiety disorder, unspecified type (300.00) (F41.9) SERTRALINE STARTED 2013. CURRENT DOSE 100 MG DAILY Attention deficit hyperactivity disorder (ADHD), combined type (314.01) (F90.2) DIAGNOSED 02/2011. CURRENT MEDS: AMPHETAMINE-DEXTROAMPHETAM INE 40 MG ( 30+10 ). 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) METFORMN 500 MG BID STARTED 08/2015 Eczema (692.9) (L30.9) Encounter for routine child health examination with abnormal findings (V20.2) (Z00.121) Encounter for routine child health examination without abnormal findings (V20.2) (Z00.129) Hypercholesterolemia with hypertriglyceridemia (272.2) (E78.2) Lipids abnormal (272.9) (E78.89) Obsessive-compulsive disorder, unspecified (300.3) (F42.9) Oligomenorrhea (626.1) (N91.5) Panic attack (300.01) (F41.0) URI, acute (465.9) (J06.9) Vitamin D deficiency (268.9) (E55.9) Past Medical History Problems History of Abscess (682.9) (L02.91) MRSA BUTTOCK 08/2015 Acute pharyngitis, unspecified etiology (462) (J02.9) Resolved Date: 13 Aug 2018 History of Acute pharyngitis, unspecified etiology (462) (J02.9) Resolved Date: 29 May 2016 History of Bite or sting by insect Resolved Date: 03 Aug 2018 History of Dysfunction of left eustachian tube (381.81) (H69.82) Resolved Date: 03 Aug 2018 History of Emotional crisis (309.29) (F43.20) Resolved Date: 19 Aug 2018 History of acute otitis media (V12.49) (Z86.69) Resolved Date: 14 Oct 2016 History of acute otitis media (V12.49) (Z86.69) Resolved Date: 03 Jun 2017 History of acute pharyngitis (V12.69) (Z87.09) Resolved Date: 03 Jun 2017 History of acute pharyngitis (V12.69) (Z87.09) Resolved Date: 02 Dec 2019 History of acute sinusitis (V12.69) (Z87.09) Resolved Date: 03 Jun 2017 History of acute sinusitis (V12.69) (Z87.09) Resolved Date: 03 Aug 2018 History of attention deficit hyperactivity disorder (ADHD) (V11.8) (Z86.59) History of impetigo (V13.3) (Z87.2) Resolved Date: 02 Dec 2019 History of sore throat (V12.69) (Z87.09) Resolved Date: 01 Dec 2018 History of tonsillitis (V12.69) (Z87.09) Resolved Date: 11 Feb 2018 History of upper respiratory infection (V12.09) (Z87.09) Resolved Date: 03 Jun 2017 History of upper respiratory infection (V12.09) (Z87.09) Resolved Date: 03 Aug 2018 Added by Problem List Migration; 2013-06-03 History of Influenza-like illness (487.1) (J11.1) Resolved Date: 01 Dec 2018 History of Laryngotracheobronchitis (490) (J40) Resolved Date: 03 Jun 2017 History of Lice infested hair (132.9) (B85.2) Resolved Date: 01 Dec 2018 History of Localized skin eruption (782.1) (R21) Resolved Date: 03 Aug 2018 History of OME (otitis media with effusion), right (381.4) (H65.91) Resolved Date: 03 Aug 2018 Other acute sinusitis (461.8) (J01.80) Resolved Date: 25 Feb 2018 History of Otitis, left (382.9) (H66.92) Resolved Date: 03 Jun 2017 History of Rash (782.1) (R21) Resolved Date: 29 May 2016 History of Rash (782.1) (R21) Resolved Date: 03 Aug 2018 History of Vaginal yeast infection (112.1) (B37.3) Resolved Date: 03 Jun 2017 History of Wears glasses (V49.89) (Z97.3) Surgical History Problems History of [place] (more content not included)... Normal [facility] 03-22-2021 S. pyogenes Ag Ql (Throat) Negative [facility] Work Phone: Pediatric Medicine 06-14on 0 03-22-2021 Pediatric Medicine 06-14 Diagnosis/Problems Assessed Acute pharyngitis (462) (J02.9) Orders Acute pharyngitis IO Rapid Strep; Status:Resulted - Requires Verification; Done: 22Mar2021 10:00AM Performed:In Office; Due:[id number];Ordered; For:Acute pharyngitis; Ordered By:René Treviño; Patient Discussion/Summary strep negative in office, if symptoms worsen then may require further testing supportive care start nasal saline Return to clinic if worsening, if new symptoms present, if symptoms are not improving, or for any concerns that may arise. Discussed supportive care, expected course of illness, etiology, and all questions were answered. May give age appropriate OTC analgesics/antipyretics as needed. Parent encouraged to call as needed. No scheduled follow up at this time. 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 CURRENT DOSE 100 MG DAILY Attention deficit hyperactivity disorder (ADHD), combined type (314.01) (F90.2) DIAGNOSED 02/2011. CURRENT MEDS: AMPHETAMINE-DEXTROAMPHETAM INE 40 MG ( 30+10 ). 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) METFORMN 500 MG BID STARTED 08/2015 Eczema (692.9) (L30.9) Encounter for routine child health examination with abnormal findings (V20.2) (Z00.121) Encounter for routine child health examination without abnormal findings (V20.2) (Z00.129) Hypercholesterolemia with hypertriglyceridemia (272.2) (E78.2) Lipids abnormal (272.9) (E78.89) Obsessive-compulsive disorder, unspecified (300.3) (F42.9) Oligomenorrhea (626.1) (N91.5) Panic attack (300.01) (F41.0) URI, acute (465.9) (J06.9) Vitamin D deficiency (268.9) (E55.9) Past Medical History Problems History of Abscess (682.9) (L02.91) MRSA BUTTOCK 08/2015 Acute pharyngitis, unspecified etiology (462) (J02.9) Resolved Date: 13 Aug 2018 History of Acute pharyngitis, unspecified etiology (462) (J02.9) Resolved Date: 29 May 2016 History of Bite or sting by insect Resolved Date: 03 Aug 2018 History of Dysfunction of left eustachian tube (381.81) (H69.82) Resolved Date: 03 Aug 2018 History of Emotional crisis (309.29) (F43.20) Resolved Date: 19 Aug 2018 History of acute otitis media (V12.49) (Z86.69) Resolved Date: 14 Oct 2016 History of acute otitis media (V12.49) (Z86.69) Resolved Date: 03 Jun 2017 History of acute pharyngitis (V12.69) (Z87.09) Resolved Date: 03 Jun 2017 History of acute pharyngitis (V12.69) (Z87.09) Resolved Date: 02 Dec 2019 History of acute sinusitis (V12.69) (Z87.09) Resolved Date: 03 Jun 2017 History of acute sinusitis (V12.69) (Z87.09) Resolved Date: 03 Aug 2018 History of attention deficit hyperactivity disorder (ADHD) (V11.8) (Z86.59) History of impetigo (V13.3) (Z87.2) Resolved Date: 02 Dec 2019 History of sore throat (V12.69) (Z87.09) Resolved Date: 01 Dec 2018 History of tonsillitis (V12.69) (Z87.09) Resolved Date: 11 Feb 2018 History of upper respiratory infection (V12.09) (Z87.09) Resolved Date: 03 Jun 2017 History of upper respiratory infection (V12.09) (Z87.09) Resolved Date: 03 Aug 2018 Added by Problem List Migration; 2013-06-03 History of Influenza-like illness (487.1) (J11.1) Resolved Date: 01 Dec 2018 History of Laryngotracheobronchitis (490) (J40) Resolved Date: 03 Jun 2017 History of Lice infested hair (132.9) (B85.2) Resolved Date: 01 Dec 2018 History of Localized skin eruption (782.1) (R21) Resolved Date: 03 Aug 2018 History of OME (otitis media with effusion), right (381.4) (H65.91) Resolved Date: 03 Aug 2018 Other acute sinusitis (461.8) (J01.80) Resolved Date: 25 Feb 2018 History of Otitis, left (382.9) (H66.92) Resolved Date: 03 Jun 2017 History of Rash (782.1) (R21) Resolved Date: 29 May 2016 History of Rash (782.1) (R21) Resolved Date: 03 Aug 2018 History of Vaginal yeast infection (112.1) (B37.3) Resolved Date: 03 Jun 2017 History of Wears glasses (V49.89) (Z97.3) Surgical History Problems History of Adenoidectomy 07/2008 History of Myringotomy 08/2005, 07/2008 ( WITH ADENOIDECTOMY ), 06/2010 Family History Mother Family history of Anxiety Family history of depression (V17.0) (Z81.8) Family history of gastroesophageal reflux disease (more content not included)... Normal [facility] IO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 17:55-0400 Pulse Oximetry 96 % Lula Ramon [facility] Work Phone: 12-02-2019 17:55-0400 38 1 Lula Ramon [facility] Work Phone: Comment on above: 2-20 Stature Percentile 12-02-2019 17:55-0400 99 1 Lula Ramon [facility] Work Phone: Comment on above: 2-20 Weight Percentile BMI Percentile 08-17-2019 15:15-0500 Body Temperature 100.4 [degF] Lula Navarro [facility] Work Phone: 08-17-2019 15:15-0500 Body weight 118.96 kg Lula Putnama [facility] Work Phone: 08-17-2019 15:15-0500 99 1 Lula Ramon [facility] Work Phone: Comment on above: 2-20 Weight Percentile 11-03-2018 18:13-0400 Body Temperature 98.3 [degF] Marino Espino [facility] Work Phone: Comment on above: Method: Temporal 11-03-2018 18:13-0400 Body weight 117.2 kg Marino Espino [facility] Work Phone: 11-03-2018 18:13-0400 Pulse (Heart Rate) 110 /min Marino Espino [facility] Work Phone: 11-03-2018 18:13-0400 Pulse Oximetry 98 % Marino Espino [facility] Work Phone: 11-03-2018 18:13-0400 99 1 Marino Espino [facility] Work Phone: Comment on above: 2-20 Weight Percentile Encounters Encounter Date Encounter Type Care Provider Facility Start: 02-26-2024 ambulatory Lolita Hillman y:NAVEEN Barakat Start: 02-05-2024 ambulatory Lolita Richardson Facility: [facility] [place] Start: 02-04-2024 End: 02-04-2024 ambulatory RODRIGUEZ WEAVER Not Available Start: 02-04-2024 End: 02-04-2024 ambulatory KIM LUTZ Not Available Start: 02-03-2024 End: 02-03-2024 ambulatory CHELSEA L CALIX Not Available Start: 01-07-2024 End: 01-07-2024 ambulatory RODRIGUEZ Bakari DANIELLE-NOSSEK Not Available Start: 01-06-2024 End: 01-06-2024 ambulatory KIM AICHHOLZ Not Available Start: 01-05-2024 End: 01-05-2024 ambulatory CHELSEA L CALIX Not Available Start: 11-10-2023 End: 11-10-2023 ambulatory CHELSEA L CALIX Not Available Start: 11-05-2023 End: 11-05-2023 ambulatory KIM AICHHOLZ Not Available Start: 10-21-2023 End: 10-21-2023 ambulatory RODRIGUEZ Villegas DANIELLE-NOSSEK Not Available Start: 08-20-2023 End: 08-20-2023 ambulatory KIM AICHHOLZ Not Available Start: 08-13-2023 Bamboo flowsheet Rodriguez Villegas Danielle-Nossek PROPERTY MANAGEMENT ACCOUNTANT-DINING CAR WAITER/WAITRESS Work Phone: [facility] Start: 08-13-2023 Bamboo flowsheet Rodriguez Bakari Danielle-Nossek PROPERTY MANAGEMENT ACCOUNTANT-DINING CAR WAITER/WAITRESS Work Phone: [facility] Start: 08-13-2023 End: 08-13-2023 Office outpatient new 60 minutes Rodriguez Bakari Danielle-Nossek PROPERTY MANAGEMENT ACCOUNTANT-DINING CAR WAITER/WAITRESS Work Phone: [facility] Comment on above: ADHD (attention defi cit hyperactivity disorder), combined type ([facility]); Anxiety Start: 08-13-2023 End: 08-13-2023 ambulatory RODRIGUEZ Bakari DANIELLE-NOSSEK Not Available Start: 05-26-2023 End: 05-26-2023 ambulatory KIM AICHHOLZ Not Available Start: 09-20-2022 AUDIT Unknown Unknown [facility] [address] [place] [address] Work Phone: Start: 08-06-2022 End: 08-06-2022 ambulatory [employer] KIM AICHHOLZ Facility: Start: 07-18-2022 Office outpatient vi sit 15 minutes Unknown Unknown BA-Bljpqlkfxi-Ypffq 204 Work Phone: Start: 07-18-2022 Patient encounter procedure Unknown Unknown QK-Sfclabfqkm-Mlunh 204 Work Phone: Start: 05-15-2022 Patient encounter procedure Unknown Unknown MZ-Lukhclngqv-Anbqv 204 Work Phone: Start: 04-30-2022 Rx Renewal Unknown Unknown [facility] 204 Work Phone: Start: 04-28-2022 Rx Renewal Unknown Unknown [facility] 204 Work Phone: Start: 03-11-2022 End: 03-11-2022 ambulatory [facility] Facility:H1 Start: 02-10-2022 Office outpatient vi sit 15 minutes Unknown Unknown CS-Oysukvjivb-Zotfq 204 Work Phone: Start: 01-23-2022 Office outpatient vi sit 25 minutes Unknown Unknown LL-Kmpmgliere-Mnnke 204 Work Phone: Start: 01-03-2022 Office outpatient vi sit 25 minutes Unknown Unknown FQ-Jptlsfauqn-Yisjj 204 Work Phone: Start: 12-13-2021 Office outpatient vi sit 25 minutes Unknown Unknown EM-Vtlqklgqiw-Eajli 204 Work Phone: Start: 11-19-2021 Rx Renewal Lula A Vac ca Work Phone: EC-Gnkffmvdul-Pvnob 204 Work Phone: Start: 11-15-2021 End: 11-16-2021 ambulatory [facility] Facility:H1 Start: 07-12-2021 Office outpatient vi sit 15 minutes Lula A Ramon Work Phone: [facility] [address] Work Phone: Start: 07-12-2021 Patient encounter procedure Lula A Ramon Work Phone: RX-Wmbypulrqd-Lhsrp 204 Work Phone: Start: 06-04-2021 Rx Renewal Lula A Vac ca Work Phone: DP-Skwtohkgye-Tynvn 204 Work Phone: Start: 04-24-2021 Rx Renewal Lula A Vac ca Work Phone: SI-Uzoqnjyveu-Tqmnw 204 Work Phone: Start: 04-24-2021 Telephone encounter Lula A Ramon Work Phone: PM-Ubfvenzjig-Egmui 204 Work Phone: Start: 03-25-2021 Office outpatient vi sit 25 minutes Lula A Ramon Work Phone: [facility] Work Phone: Start: 03-22-2021 Office outpatient vi sit 15 minutes Lula A Ramon Work Phone: [facility] Work Phone: Start: 03-22-2021 Patient encounter procedure Lula A Ramon Work Phone: [facility] Work Phone: Start: 02-15-2021 Periodic preventive med est patient 12-17yrs Lula A Ramon Work Phone: [facility] Work Phone: Start: 02-12-2021 Office outpatient vi sit 25 minutes Lula A Ramon Work Phone: DV-Gezdsrryvk-Vabyg 204 Work Phone: Start: 11-20-2020 Office outpatient vi sit 25 minutes Lula A Ramon Work Phone: EL-Gibnelbgzl-Uxvew 204 Work Phone: Start: 11-20-2020 Patient encounter procedure Lula A Ramon Work Phone: UM-Pzpzvgbgul-Drymi 204 Work Phone: Start: 12-02-2019 Patient encounter procedure Lula Ramon [facility] Work Phone: Start: 08-17-2019 Patient encounter procedure Lula Ramon [facility] Work Phone: Start: 03-03-2019 Patient encounter procedure Lula Ramon IC-Untcfjhjqo-Ssauc 204 Work Phone: Start: 01-10-2019 Patient encounter procedure Lula Ramon GR-Raeqcmfgmb-Ukcmp 204 Work Phone: Start: 12-01-2018 Patient encounter procedure Lula Ramon XU-Gjxfqmebtu-Ldgrn 204 Work Phone: Start: 11-03-2018 Patient encounter procedure [facility] Work Phone: Start: 08-31-2018 Patient encounter procedure Marino Espino Facility:[id number] Start: 08-19-2018 Patient encounter procedure Lula Aparicio Ramon Facility:[id number] Start: 08-03-2018 Patient encounter procedure Lula Aparicio Ramon Facility:[id number] Start: 05-14-2018 Patient encounter procedure Marino Espino Facility:[id number] Start: 04-06-2018 Patient encounter procedure Marino Espino Facility:[id number] Start: 03-10-2018 End: 03-11-2018 Patient encounter JEFFERY DELAROSA [facility] Start: 02-11-2018 Patient encounter procedure Lula Aparicio Ramon Facility:[id number] Start: 11-19-2017 Patient encounter procedure Marino Espino Facility:[id number] Start: 10-22-2017 Patient encounter procedure René Treviño Facility:[id number] Start: 06-03-2017 Patient encounter procedure [facility] Work Phone: Start: 05-19-2017 Patient encounter procedure [facility] Work Phone: Start: 04-14-2017 Patient encounter procedure [facility] Work Phone: Start: 02-27-2017 Patient encounter procedure [facility] Work Phone: Start: 01-12-2017 Patient encounter procedure [facility] Work Phone: Patient encounter status Edy Acuna Ramon Work Phone: MB-Xjtgwbhzog-Pxbnx 204 Work Phone: Procedures Date Procedure Procedure Detail Performing Clinician Adenoidectomy withou t tonsillectomy Marino Espino Comment on above: 07/2008; History of Myringotomy Marino Espino Comment on above: 08/2005, 07/2008 ( WIT H ADENOIDECTOMY ), 06/2010; Plan of Treatment Date Care Activity Detail Author Start: 09-16-2023 End: 09-16-2023 Patient encounter procedure 09/16/2023 3:30 PM EDT Office Visit [facility] [address] [place] [address] Rodriguez Weaver, PROPERTY MANAGEMENT ACCOUNTANT-DINING CAR WAITER/WAITRESS [address] [place] [address] [facility] Start: 08-31-2023 End: 08-31-2023 Clinical Support 08/31/2023 5:00 PM EST Clinical Support [facility] [address] [place] [address] Aida Solomon, [facility] [address] [place] [address] [facility] Start: 08-13-2023 End: 08-13-2023 Patient encounter procedure 08/13/2023 9:30 AM EST Office Visit [facility] [address] [place] [address] Rodriguez Weaver, PROPERTY MANAGEMENT ACCOUNTANT-DINING CAR WAITER/WAITRESS [address] [place] [address] ADHD (attention deficit hyperactivity disorder), combined type (CMS/HCC) [facility] Comment on above: ADHD (attention defi cit hyperactivity disorder), combined type (CMS/HCC) Start: 02-27-2023 Influenza vaccination Influenza Vacc ine (#1) [facility] Start: 02-15-2021 EPVWELLADL, Provider : Linda Whitmore, Status: Pen, Time: 11:20 AM EPVWELLADL, Provider: Linda Whitmore, Status: Pen, Time: 11:20 AM OD-Ashfvmkjcs-Gzspy 204 Work Phone: Start: 12-11-2020 EPANGELICA, Provider : Linda Whitmore, Status: Pen, Time: 3:30 PM EPVWELLADL, Provider: Linda Whitmore, Status: Pen, Time: 3:30 PM KH-Lkihtmlqxv-Ssmct 204 Work Phone: Immunizations Immunization Date Immunization Notes Care Provider Yary lainez 03-30-2022 meningococcal polysaccharide (groups A, C, Y and W-135) diphtheria toxoid conjugate vaccine (MCV4P) Unknown Unknown LH-Cmwuzmntmc-Qfeyl 204 Work Phone: 05-28-2021 influenza, seasonal, injectable Lula A Ramon Work Phone: CX-Xmbwovbshg-Qcywz 204 Work Phone: 05-28-2021 influenza virus vaccine, unspecified formulation Rodriguez Weaver PROPERTY MANAGEMENT ACCOUNTANT-[facility] Work Phone: [facility] 04-29-2021 Moderna COVID-19 Vaccine 100 MCG/0.5ML Intramuscular Suspension Lula A Ramon Work Phone: PP-Dgwdlkopos-Qnbsn Work Phone: 04-06-2021 influenza, injectabl e, quadrivalent, preservative free Lula A Ramon Work Phone: YY-Caovikgdpi-Trjhi Work Phone: 04-06-2021 Pfizer-BioNTech COVID-19 Vacc 30 MCG/0.3ML Intramuscular Suspension Lula A Ramon Work Phone: PP-Xzwrvpsgps-Qtlyj 204 Work Phone: 02-24-2021 Pfizer-BioNTech COVID-19 Vacc 30 MCG/0.3ML Intramuscular Suspension Lula A Ramon Work Phone: [facility] Work Phone: 06-03-2017 hepatitis A vaccine, pediatric/adolescent dosage, 2 dose schedule; Translations: [Vaqta 25 UNIT/0.5ML Intramuscular Suspension] [facility] Work Phone: Comment on above: Series: 06-03-2017 influenza, injectabl e, quadrivalent, preservative free; Translations: [Fluarix Quadrivalent 0.5 ML Intramuscular Suspension Prefilled Syringe] [facility] Work Phone: Comment on above: Series: 05-29-2016 meningococcal polysaccharide (groups A, C, Y and W-135) diphtheria toxoid conjugate vaccine (MCV4P); Translations: [Meningo (Menactra)] [facility] Work Phone: Comment on above: Series: 05-29-2016 tetanus toxoid, redu divya diphtheria toxoid, and acellular pertussis vaccine, adsorbed; Translations: [Tdap] [facility] Work Phone: Comment on above: Series: 03-29-2016 influenza, seasonal, injectable Lula A Ramon Work Phone: VZ-Usfpvbngms-Ipham 204 Work Phone: 03-18-2016 influenza virus vaccine, unspecified formulation Lula A Ramon Work Phone: OG-Bzpcbyaxge-Wyxoy 204 Work Phone: Comment on above: Series: 03-18-2016 influenza, seasonal, injectable [facility] Work Phone: 03-29-2015 influenza virus vaccine, unspecified formulation Lula A Ramon Work Phone: IQ-Fyznokakqx-Hhwqe 204 Work Phone: Comment on above: Series: 03-29-2015 influenza, seasonal, injectable Marino Mooreman [facility] Work Phone: 03-24-2014 influenza virus vaccine, unspecified formulation Lula A Ramon Work Phone: QU-Ndhnnvmhgw-Lrnvw 204 Work Phone: Comment on above: Series: 03-24-2014 influenza, seasonal, injectable [facility]ino [facility] Work Phone: 10-30-2009 Diphtheria, tetanus toxoids and acellular pertussis vaccine, and poliovirus vaccine, inactivated Lula A Ramon Work Phone: TJ-Jsipqxello-Hqyew 204 Work Phone: Comment on above: Series: 10-30-2009 measles, mumps and rubella virus vaccine Lula A Ramon Work Phone: LF-Bpatmacvev-Cjsap 204 Work Phone: Comment on above: Series: 10-30-2009 varicella virus vaccine Kimb erly A Ramon Work Phone: FA-Olhcwttfms-Zhjdw 204 Work Phone: Comment on above: Series: 10-30-2009 Diphtheria, tetanus toxoids and acellular pertussis vaccine, and poliovirus vaccine, inactivated Marino Srinivas [facility] Work Phone: 10-30-2009 measles, mumps and rubella virus vaccine [facility] Phone: 10-30-2009 varicella virus vaccine Marino Mooremaco zhong [facility] Work Phone: 05-05-2009 novel pjifkfabj-G2M1-43, preservative-free, injectable Lula A Ramon Work Phone: AD-Prwfdinlzc-Hjkow 204 Work Phone: 05-06-2007 influenza virus vaccine, unspecified formulation Lula A Ramon Work Phone: EX-Uelhlmiluf-Zfqgq 204 Work Phone: Comment on above: Series: 05-06-2007 influenza, seasonal, injectable [facility]ino Espino [facility] Work Phone: 05-14-2006 diphtheria, tetanus toxoids and acellular pertussis vaccine, 5 pertussis antigens [facility]ino Espino [facility] Work Phone: Comment on above: Series: 05-14-2006 haemophilus influenz ae type b vaccine, PRP-T conjugate [facility] Espino [facility] Work Phone: Comment on above: Series: 05-14-2006 hepatitis A vaccine, unspecified formulation [facility]ino Espino [facility] Work Phone: Comment on above: Series: 05-14-2006 influenza virus vaccine, unspecified formulation Lula A Ramon Work Phone: [facility] 204 Work Phone: Comment on above: Series: 05-14-2006 influenza, seasonal, injectable Marino Espino [facility] Work Phone: 05-14-2006 measles, mumps and rubella virus vaccine Marino Espino [facility] Work Phone: Comment on above: Series: 02-05-2006 varicella virus vaccine Marino Delgado far[facility]en [facility] Work Phone: Comment on above: Series: 10-28-2005 pneumococcal conjuga te vaccine, 7 valent Marino Espino [facility] Work Phone: Comment on above: Series: 07-22-2005 diphtheria, tetanus toxoids and acellular pertussis vaccine, 5 pertussis antigens Marino Espino [facility] Work Phone: Comment on above: Series: 07-22-2005 haemophilus influenz ae type b conjugate and Hepatitis B vaccine Lula A Ramon Work Phone: ZP-Dqihralgyo-Mjpde 204 Work Phone: 07-22-2005 haemophilus influenz ae type b vaccine, PRP-T conjugate Marino Espino [facility] Work Phone: Comment on above: Series: 07-22-2005 hepatitis B vaccine, pediatric or pediatric/adolescent dosage Marino Espino [facility] Work Phone: Comment on above: Series: 07-22-2005 pneumococcal conjuga te vaccine, 7 valent Marino Espino [facility] Work Phone: Comment on above: Series: 07-22-2005 poliovirus vaccine, inactivated Lula Ramon PI-Jakldcvzox-Ovxgj 204 Work Phone: Comment on above: Series: 02-18-2005 diphtheria, tetanus toxoids and acellular pertussis vaccine, 5 pertussis antigens Marino Espino [facility] Work Phone: Comment on above: Series: 02-18-2005 haemophilus influenz ae type b vaccine, PRP-OMP conjugate Marino Espino [facility] Work Phone: Comment on above: Series: 02-18-2005 pneumococcal conjuga te vaccine, 7 valent Marino Espino [facility] Work Phone: Comment on above: Series: 02-18-2005 poliovirus vaccine, inactivated Marino Espino [facility] Work Phone: Comment on above: Series: 2004 diphtheria, tetanus toxoids and acellular pertussis vaccine, 5 pertussis antigens Marino Espino [facility] Work Phone: Comment on above: Series: 2004 haemophilus influenz ae type b conjugate and Hepatitis B vaccine Lula A Ramon Work Phone: CK-Vwhqvsliik-Evaem 204 Work Phone: 2004 haemophilus influenz ae type b vaccine, PRP-T conjugate Marino Espino [facility] Work Phone: Comment on above: Series: 2004 hepatitis B vaccine, pediatric or pediatric/adolescent dosage [facility] Work Phone: Comment on above: Series: 2004 pneumococcal conjuga te vaccine, 7 valent [facility] Work Phone: Comment on above: Series: 2004 poliovirus vaccine, inactivated [facility] Work Phone: Comment on above: Series: 2004 hepatitis B vaccine, pediatric or pediatric/adolescent dosage [facility] Work Phone: Comment on above: Series: Payers Date Payer Category Payer Unknown 2004 Unknown [id number] 2.16.84 [id number] 2004 Unknown [id number] 2.16.84 [id number] 2004 Unknown [id number] 2.16.84 0.1.200661.3.579.2.1258 2004 Unknown [id number] 2.16.84 0.1.823667.3.579.2.1258 2004 Unknown [id number] 2.16.84 0.1.075502.3.579.2.1258 2004 Unknown [id number] 2.16.84 0.1.314837.3.579.2.1258 2004 Unknown [id number] 2.16.84 0.1.300311.3.579.2.1258 2004 Unknown [id number] 2.16.84 0.1.374285.3.579.2.1258 2004 Unknown [id number] 2.16.84 0.1.622132.3.579.2.1258 2004 Unknown [id number] 2.16.84 0.1.370016.3.579.2.1259 2004 Unknown [id number] 2.16.84 0.1.498193.3.579.2.1259 2004 Unknown [id number] 2.16.840 .1.482084.3.579.2.1259 1979 Unknown [id number] 2.16. 840.1.417041.3.579.2.356 1979 Unknown [id number] 2.16. 840.1.689909.3.579.2.356 1979 Unknown [id number] 2.16. 840.1.421482.3.579.2.356 1979 Unknown [id number] 2.16.84 0.1.398937.3.579.2.593 1979 Unknown [id number] 2.16.84 0.1.811370.3.579.2.593 1979 Unknown [id number] 2.16.84 0.1.855857.3.579.2.593 1978 Unknown [id number] 2.16. 840.1.776966.3.579.2.356 1978 Unknown [id number] 2.16. 840.1.454786.3.579.2.356 1978 Unknown [id number] 2.16. 840.1.257388.3.579.2.356 1978 Unknown [id number] 2.16. 840.1.230260.3.579.2.356 1978 Unknown [id number] 2.16. 840.1.686251.3.579.2.356 1959 Unknown [id number] Medicaid [id number] Self-pay Unknown [id number] Unknown [id number] Unknown [id number] Unknown [id number] Social History Date Type Detail Facility Assertion Unknown if ever smoked [facility] Work Phone: Start: 06-28-2023 End: 08-13-2023 Feels safe at home Feels safe at home [id number] Work Phone: Start: 06-28-2023 End: 08-13-2023 Tobacco smoking status NHIS Never smoked tobacco [facility] Start: 06-28-2023 End: 08-13-2023 Alcohol intake Lifetime non-drinker (finding) [facility] Start: 06-28-2023 End: 08-13-2023 Tobacco use panel [facility] Start: 2004 Sex Assigned At Not on file [facility] Start: 08-13-2023 Tobacco use and exposure Smokeless tobacco non-user [facility] Start: 08-13-2023 Alcohol Comment caffiene- occasionally [facility] Functional Status Date Assessment Result Facility NEGATED: Highlighted row Functional performance Functional status health issues are not documented [facility] Work Phone: Mental Status Date Assessment Result Facility NEGATED: Highlighted row Cognitive function [Interpretation] Cognitive status health issues are not documented [facility] Work Phone: Clinical Notes 08-27-2020 to 08-13-2023 Rodriguez Weaver, PROPERTY MANAGEMENT ACCOUNTANT-DINING CAR WAITER/WAITRESS - 08/13/2023 10:00 AM EST Note Date & Type Note Facility 08-13-2023 History of Present illness Narrative NEW PATIENT PSYCHIATRIC EVALUATION HPI This is an 17-year-old female who was referred by her primary care physician. Patient has been under the care of Psychiatry at [facility] and would like to change providers. The patient has been treated for ADHD anxiety and depression. Patient also has a history of autism spectrum. Patient presents today with her mother who helped in answering questions in the assessment. The patient is currently taking Prozac 40 mg, trazodone 50 mg nightly, guanfacine and Vyvanse 70mg daily. According to patient's mother patient was originally diagnosed with ADHD and Asperger's when younger at the [facility]. Patient's mother was asked to bring in the report. Patient has previously seen a physician in [place] for psychiatric medication and Leonila Canela with [facility]. The patient has active symptoms include episodes of tearfulness, anxiety, difficulty sleeping at night but will sleep during the day. The following or med trials patient has been prescribed and had negative or ineffective medication response: Med trials: Mydadis -gave her nightmares-took for a week. Other stimulants patient has tried were Adderall, Strattera, Concerta, and Focalin. Patient is also tried Zoloft for antidepressant and antianxiety and said it stopped working. She has been on Prozac for 10 years and still complains of anxiety and depression. She would also taken Depakote in the past, mom thinks it helped. Patient said it didn't help. Patient denies a history of psychiatric hospitalization inpatient. Patient did go to the ER on 1 occasion due to being suicidal, she would stated I don't want to be here. This was triggered by being physically ill with a virus. Patient's sleep routine is irregular. Often times she is sleeping 1 am til 3p in general will beup until 7am. Will then sleep all day 6-7 hours. She has tried Tylenol pm and it helps me go to sleep earlier. Does not get any physical exercise. Endorses Anxiety and rates 6-7 (10 worst) her symptoms of anxiety include: excessive worry, restlessness, on edge, poor concentration, mind going blank, irritability, muscle tension, sleep disturbance. Patient has a history of previous panic attacks where she has experienced:palpitations, sweating, chest pain, lightheaded derealization, fear of dying, She was taken to hospital from school due to panic. Last one was last year. Patient states the only 1 who can calm her down during these times are her mother. Patient endorses variable degrees of depression and currently rates depression at 8 (10 worst ). Patient's first episode of depression in 6th grade -she was being bullied by boys about weight. A lot of people think I'm annoying. Mom says she believes the depression never left her. Patient's symptoms of depression include: Sad mood, anhedonia, isolation, poor sleep, difficulty falling asleep, eats more or will not eat, poor concentration, irritability, fatigue, worthlessness, guilt, hopeless, helpless, crying spells, denies suicidal ideation-plan, intent, previous attempts. Patient denies manic or hypomanic symptoms. There is bipolar disorder within the family and discussed regarding watching for symptoms of bipolar. Patient denies PTSD. Reports often will have social anxiety and she is not able to go into [employer] by herself. Mom states if she goes with her she will be talkative to others she does not now. Patient states it makes her anxious in a group as she fears embarrassing or humiliating self, scrutinized by others, anxious others not well known, avoids social situations. Hx of OCD sx since a child has counted steps when walking, things have to being certain numbers and these types of behaviors have been present since she was a child. Patient denies psychotic symptoms. Patient has a history of ADHD diagnosis since 2nd grade. Mom states she will hyperfixate on things she likes or is interested in, otherwise she has poor attention to detail, difficulty sustaining attention in tasks, not listening when others are talking, difficulty with follow thru and poor multitasking, disorganized, avoids attention sustaining activities, loses things . Family History of mental health: Mother suffers from depression and anxiety, Father diagnosed with ADHD, depression. Bipolar Disorder is present with p grandmother, paternal aunts. Per mom Mgrandmother has a history of schizophrenia, Bipolar Disorder. Two step brothers both autistic. (Those are Step mothers children. Patient denies hx of Substance abuse. Patient is single and has boyfriend he is not allowed to see her. They have never been able to be with him outside of school. Patient was employed with [employer]- worked 9 days and was let go. Patient stated the reason she was let go was, I didn't get trained enough, this occurred in April of 2023. She currently lives with mom and stepdad. Stressors include: no job Can't see floor in room. Has difficulty cleaning up room. Thought of being an adult. Review of Systems/ Mental Status exam APPEARANCE: groomed, dressed for weather Abnormal body movements: none ATTITUDE: cooperative Attention: fair to poor-focus and concentration BEHAVIOR: Appropriate with good eye contact. MOTOR ACTIVITY: No psychomotor agitation SPEECH: clear, regular rate, rhythm, volume MOOD: depressed and anxious-worries AFFECT: Full range, tearful at times THOUGHT PROCESS: tangential, THOUGHT CONTENT: Denies suicidal or homicidal ideation. Obsessive THOUGHT PERCEPTION: Denies a/v hallucinations, no evidence of delusions. COGNITION: Alert and oriented x3 MEMORY:No deficit in recent and remote memory INSIGHT: Fair Patient recognizes symptoms of illness and need for recommended treatments JUDGEMENT: fair Able to make decisions about ordinary activities of daily living. Impression This is an 17-year-old female who was referred by her primary care physician. Patient has been under the care of Psychiatry at [facility] and would like to change providers. The patient has been treated for ADHD anxiety and depression. Patient also has a history of autism spectrum. Patient presents today with her mother who helped in answering questions in the assessment. The patient is currently taking Prozac 40 mg, trazodone 50 mg nightly, guanfacine and Vyvanse 70mg daily. Will change medications to more effectively treat anxiety and depression and ADHD sx. Diagnosis ADHD GAYLE Major depression, moderate recurrent Autism spectrum F84.0 R/O OCD Plan 1-Manage anxiety -medications and counseling 2. Evaluate and treat problems with sleep. Medications Prozac decrease to 20mg for one week then every other day for a week then stop Paxil 10mg daily for one week and then increase to 2 tabs. Taper off of Intuniv 1/2 tab for 3 days then stop. Educated regarding medications purpose and target sx, questions answered Psychotherapy-refer to Chely Solomon to help manage anxiety, stressors F/U 3 weeks Minutes in Direct clinical care, collaborating with family and documentation 85min documented in this encounter [facility] 07-18-2022 Chief complaint Narrative - Reported Accompanied by mother.An interactive audio and video telecommunication system which permits real time communications between the patient (at the originating site) and provider (at the distant site) was utilized to provide this telehealth service.Verbal consent was requested and obtained for minor from Oseas Junior (parent/guardian) on this date, 07/18/2022 02:30 PM , for a telehealth visit.OCD, mood, ADHD, ASDSami informed of the current need to conduct treatment via audio/visual (zoom ) They understand this platform is not HIPPA compliant and information may not be secure. I have confirmed the patient's identity via the following acceptable identifiers as per policy PH-9.. - , address, insurance [id number] Work Phone: 07-18-2022 Chief complaint Narrative - Reported Accompanied by mother.An interactive audio and video telecommunication system which permits real time communications between the patient (at the originating site) and provider (at the distant site) was utilized to provide this telehealth service.Verbal consent was requested and obtained for minor from Oseas Pacheco (parent/guardian) on this date, 07/18/2022 02:30 PM , for a telehealth visit.OCD, mood, ADHD, ASDSami informed of the current need to conduct treatment via audio/visual (zoom ) They understand this platform is not HIPPA compliant and information may not be secure. I have confirmed the patient's identity via the following acceptable identifiers as per policy PH-9.. - , address, insurance [facility] Work Phone: 05-15-2022 Chief complaint Narrative - Reported An interactive audio and video telecommunication system which permits real time communications between the patient (at the originating site) and provider (at the distant site) was utilized to provide this telehealth service.Verbal consent was requested and obtained for minor from Oseas Pacheco (parent/guardian) on this date, 05/15/2022 05:00 PM , for a telehealth visit.OCD, mood, ADHD, ASDMother informed of the current need to conduct treatment via audio/visual (zoom ) They understand this platform is not HIPPA compliant and information may not be secure. I have confirmed the patient's identity via the following acceptable identifiers as per policy PH-9.. - , address, [facility] Work Phone: 04-29-2022 History of Present illness Narrative Sparkle Hull) is 16 y.o female who lives with mother, step-father and goes to father's every other weekend. At his house are her step-brothers. She is a senior [employer], has IEP for ASD. Last seen in Apr. Current medications are Intuniv 4 mg daily, Prozac 40 mg for OCD, general worries, depression. Uses Ativan 0.5 mg as needed but has been all out.Also taking Vyvanse 70 mg in am for ADHD s/s.No side effects with medicationsShe has all As in school and vyvanse and Intuniv continue to be helpful for ADHD symptoms.She has been getting through school well and not needing to take it later in the morningStill involved in bandShe has been dating the same boy for almost a yearShe states people are mean at school but she says they always are. She states there was a boy at school who acted like he was flirting with her but was doing it to harass her. THis went on for a while and mother reached out to school and then to his mother and he has stopped.No OCD symptoms, just minor countingShe is going to her grandmother's this weekendSometimes has a hard time to sleep, usually off the phone by 930pm, the cat can make noisesAppetite stable, mother thinks she is in the 280sShe is taking metformin 500 mg once per day due to insulin resistancealso on BC pillnot sexually activeno substance useshe is on doxycycline for eczemaMother says Oseas has been more responsible with school work and home tasks.She has been into herbal tea and learning about herbal medicinepast medicationsvistaril did not helpzoloft - lacked improvement over time , up to 125 mgtenex short actingadderall xr up to 40 mg - lacked efficacy over timefocalin xr 25 mg - lacked efficacy over timeconcerta - 2015 - says gave her night terrorstrazodone not helping, too tired in amxanax per PCP in the past helped acute anxietyvyvanse - in 2017 never able to get PAAdzenys - lacked efficacy over timeI have personally reviewed the OARRS report for SPARKLE PACHECO. I have considered the risks of abuse, dependence, addiction and diversion.I have the following concerns: no concerns.Is the patient prescribed a combination of a benzodiazepine and opioid? No. [id number] Work Phone: 04-29-2022 History of Present illness Narrative Sparkle Hull) is 16 y.o female who lives with mother, step-father and goes to father's every other weekend. At his house are her step-brothers. She is a senior [employer], has IEP for ASD. Last seen in Nov. Current medications are Intuniv 4 mg daily, Prozac 40 mg for OCD, general worries, depression. Uses Ativan 0.5 mg as needed but has been all out, ttaking Vyvanse 70 mg in am for ADHD s/s.No side effects with medicationsShe has all As in school and vyvanse and Intuniv continue to be helpful for ADHD symptoms.She has been getting through school well and not needing to take it later in the morningStill involved in bandShe has been dating the same boy for almost a yearShe states people are mean at school but she says they always are. She states there was a boy at school who acted like he was flirting with her but was doing it to harass her. She told him to leave her alone but went on for a while and mother reached out to school and then to his mother and he has stopped.No OCD symptoms, just minor countingSometimes has a hard time to sleep, usually off the phone by 930pm, the cat can make noisesAppetite stable, mother thinks she is in the 280sShe is taking metformin 500 mg once per day due to insulin resistancealso on BC pillnot sexually activeno substance useshe is on doxycycline for eczemaMother says Oseas has been more responsible with school work and home tasks.She has been into herbal tea and learning about herbal medicine for animals. She is enjoying her program at school.past medicationsvistaril did not helpzoloft - lacked improvement over time , up to 125 mgtenex short actingadderall xr up to 40 mg - lacked efficacy over timefocalin xr 25 mg - lacked efficacy over timeconcerta - 2014 - says gave her night terrorstrazodone not helping, too tired in amxanax per PCP in the past helped acute anxietyvyvanse - in 2017 never able to get PAAdzenys - lacked efficacy over timeI have personally reviewed the OARRS report for SPARKLE PACHECO. I have considered the risks of abuse, dependence, addiction and diversion.I have the following concerns: no concerns.Is the patient prescribed a combination of a benzodiazepine and opioid? No. [id number] Work Phone: 02-10-2022 Chief complaint Narrative - Reported Accompanied by seen alone.An interactive audio and video telecommunication system which permits real time communications between the patient (at the originating site) and provider (at the distant site) was utilized to provide this telehealth service.Verbal consent was requested and obtained for minor from Oseas Pacheco (parent/guardian) on this date, 02/10/2022 02:00 PM , for a telehealth visit.OCD, mood, ADHD, ASDMother informed of the current need to conduct treatment via audio/visual (zoom ) They understand this platform is not HIPPA compliant and information may not be secure. I have confirmed the patient's identity via the following acceptable identifiers as per policy PH-9.. - , address, insurance [place] [id number] Work Phone: 01-23-2022 Chief complaint Narrative - Reported Accompanied by mother.An interactive audio and video telecommunication system which permits real time communications between the patient (at the originating site) and provider (at the distant site) was utilized to provide this telehealth service.Verbal consent was requested and obtained for minor from Oseas Pacheco (parent/guardian) on this date, 01/23/2022 10:30 AM , for a telehealth visit.OCD, mood, ADHD, ASdMother informed of the current need to conduct treatment via audio/visual (zoom ) They understand this platform is not HIPPA compliant and information may not be secure. I have confirmed the patient's identity via the following acceptable identifiers as per policy PH-9.. - , address, [facility] Work Phone: 01-03-2022 Chief complaint Narrative - Reported Accompanied by mother.An interactive audio and video telecommunication system which permits real time communications between the patient (at the originating site) and provider (at the distant site) was utilized to provide this telehealth service.Verbal consent was requested and obtained for minor from Oseas Pacheco (parent/guardian) on this date, 01/03/2022 10:30 AM , for a telehealth visit.OCD, mood, ADHD, ASdMother informed of the current need to conduct treatment via audio/visual (zoom ) They understand this platform is not HIPPA compliant and information may not be secure. I have confirmed the patient's identity via the following acceptable identifiers as per policy PH-9.. - , address, insurance [id number] Work Phone: 12-13-2021 History of Present illness Narrative Sparkle Hull) is 16 y.o female who lives with mother, step-father and goes to father's every other weekend. At his house are her step-brothers. She will be a senior [employer], has IEP for ASD. Current medications are Intuniv 4 mg daily, Adzenys 18.8 mg in am, adderall IR 10 mg in afternoon as needed for ADHD s/s, Prozac 30 mg for OCD, general worries, depression, Trazodone for sleep. No reported side effects with medication. However Oseas does say when she takes the Adderall IR it makes her hyper focus and feels weirdLast seen in Janpast 6 weeks more anxious, not able to focus my medication is not working Not sleeping well due to anxiety, trazodone does not helpSammy cannot pinpoint triggers but says just always anxious, panicky. 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, does not feel worried about senior year.Is worried about responsibilities in band, but this does not start for a whileMother feels she is so anxious that is why she cannot focusSammy says her mind is just not on track also, not able to concentrateShe also says she has less motivation, lately more depressedNo SI or thoughts of , no self harmNo voicesNo OCD symptoms reportedSome worry about a girl coming back to school who was expelled for harassing herpast medicationsvistaril did not helpzoloft - lacked improvement over time , up to 125 mgtenex short actingadderall xr up to 40 mg - lacked efficacy over timefocalin xr 25 mg - lacked efficacy over timeconcerta - 2015 - says gave her night terrorstrazodone not helping, too tired in amxanax per PCP in the past helped acute anxietyno recent illnessmenses is off and supposed to start BC pill to help regulatenot sexually activeno substance useno recent family stresshad PCP apt and VS per motherwt - 290Ht 64 inBP 128/84Heart rate 97I have personally reviewed the OARRS report for SPARKLE PACHECO. I have considered the risks of abuse, dependence, addiction and diversion.I have the following concerns: no concerns. [facility] Work Phone: 12-13-2021 Chief complaint Narrative - Reported Accompanied by mother.An interactive audio and video telecommunication system which permits real time communications between the patient (at the originating site) and provider (at the distant site) was utilized to provide this telehealth service.Verbal consent was requested and obtained for minor from Oseas Pacheco (parent/guardian) on this date, 12/13/2021 10:30 AM , for a telehealth visit.OCD, mood, ADHD, ASdMother informed of the current need to conduct treatment via audio/visual (zoom ) They understand this platform is not HIPPA compliant and information may not be secure. I have confirmed the patient's identity via the following acceptable identifiers as per policy PH-9.. - , address, insurance [facility] Work Phone: 07-12-2021 Chief complaint Narrative - Reported Accompanied by mother.An interactive audio and video telecommunication system which permits real time communications between the patient (at the originating site) and provider (at the distant site) was utilized to provide this telehealth service.Verbal consent was requested and obtained for minor from Sparkle Pacheco (parent/guardian) on this date, 07/12/2021 01:30 PM , for a telehealth visit.ADHD, ASD , AnxietyDue to the COVID pandemic both the patient, and family and caregivers and guardians as appropriate, were informed of the current need to conduct treatment via audio/visual (zoom ) They understand this platform is not HIPPA compliant and information may not be secure. I have confirmed the patient's identity via the following acceptable identifiers as per policy PH-9.. - , address, insurance [id number] Work Phone: 02-12-2021 Chief complaint Narrative - Reported Accompanied by mother.An interactive audio and video telecommunication system which permits real time communications between the patient (at the originating site) and provider (at the distant site) was utilized to provide this telehealth service.Verbal consent was requested and obtained for minor from Sparkle Pacheco (parent/guardian) on this date, 02/12/2021 04:30 PM , for a telehealth visit.anxiety, mood, ADHD, ASDDue to the COVID pandemic both the patient, and family and caregivers and guardians as appropriate, were informed of the current need to conduct treatment via audio/visual (zoom ) They understand this platform is not HIPPA compliant and information may not be secure. I have confirmed the patient's identity via the following acceptable identifiers as per policy PH-9.. - , address, [place] [id number] Work Phone: 11-20-2020 Chief complaint Narrative - Reported Accompanied by mother.An interactive audio and video telecommunication system which permits real time communications between the patient (at the originating site) and provider (at the distant site) was utilized to provide this telehealth service.Verbal consent was requested and obtained for minor from Sparkle Pacheco (parent/guardian) on this date, 11/20/2020 04:30 PM , for a telehealth visit.anxiety, mood, ADHD, ASDDue to the COVID pandemic both the patient, and family and caregivers and guardians as appropriate, were informed of the current need to conduct treatment via audio/visual (zoom ) They understand this platform is not HIPPA compliant and information may not be secure. I have confirmed the patient's identity via the following acceptable identifiers as per policy PH-9.. - , address, [place] [id number] Work Phone: 11-20-2020 Chief complaint Narrative - Reported Accompanied by mother.An interactive audio and video telecommunication system which permits real time communications between the patient (at the originating site) and provider (at the distant site) was utilized to provide this telehealth service.Verbal consent was requested and obtained for minor from Sparkle Pacheco (parent/guardian) on this date, 11/20/2020 04:30 PM , for a telehealth visit.anxiety, mood, ADHD, ASDDue to the COVID pandemic both the patient, and family and caregivers and guardians as appropriate, were informed of the current need to conduct treatment via audio/visual (zoom ) They understand this platform is not HIPPA compliant and information may not be secure. I have confirmed the patient's identity via the following acceptable identifiers as per policy PH-9.. - , address, insurance [employer] [facility] Work Phone: 08-27-2020 History of Present illness Narrative Sparkle Hull) is 15 y.o female who lives with mother, step-father and goes to father's every other weekend. At his house are her step-brothers. She is in 10th grade at [employer], has IEP for ASD. Current medications are Intuniv, Adzenys, adderall IR for ADHD s/s, Prozac for OCD, general worries, depression, Trazodone for sleep. 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 ADHD s/s stable. Only uses short acting adderall when needed if has more homework, does not use as much over summer. She still finds herself tapping but feels this is related to being in band. She joined the [employer] shooting team and did well. She will watch her brothers over the summer and applied to some stores. 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 She has not had any significant depression symptoms but states I am a [place] teen, what do you expect She is having trouble to sleep even with trazodone. She has been taking 75 mg which has helped better. She states most nights nothing on her mind and just brain not tired, but some nights is more anxious. Her father had a heart attack 6 weeks ago and then she started to not feel well and thought she was having similar symptoms, went to the ER and thought to be an anxiety attack but did labs. Her ECG was WNL. She had VS which were WNL. She will see her PCP this week. Her weight is around 270 lbs. She has been taking her medication daily. [employer] [facility] Work Phone: 08-27-2020 History of Present illness Narrative Sparkle Hull) is 15 y.o female who lives with mother, step-father and goes to father's every other weekend. At his house are her step-brothers. She is in 10th grade at [employer], has IEP for ASD. Current medications are Intuniv, Adzenys, adderall IR for ADHD s/s, Prozac for OCD, general worries, depression, Trazodone for sleep. 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 ADHD s/s stable. Only uses short acting adderall when needed if has more homework, does not use as much over summer. She still finds herself tapping but feels this is related to being in band, no other OCD s/s. She joined the [employer] shooting team and did well. She will watch her brothers over the summer and applied to some stores. 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 She has not had any significant depression symptoms but states I am a [place] teen, what do you expect No thoughts of or SI, She is having trouble to sleep even with trazodone. She has been taking 75 mg which has been more effective. She states most nights nothing on her mind and just brain not tired, but some nights is more anxious. Her father had a heart attack 6 weeks ago and then she started to not feel well and thought she was having similar symptoms, went to the ER and thought to be an anxiety attack but did labs. Her ECG was WNL. She had VS which were WNL. She will see her PCP this week. Her weight is around 270 lbs.I have personally reviewed the OARRS report for SPARKLE PACHECO. I have considered the risks of abuse, dependence, addiction and diversion.I have the following concerns: no concerns.Is the patient prescribed a combination of a benzodiazepine and opioid? No. [employer] Work Phone: Evaluation note Diagnosis ADHD (attention deficit hyperactivity disorder), combined type (CMS/HCC) Attention deficit disorder with hyperactivity Anxiety Anxiety state, unspecified documented in this encounter [facility]History of Present illness Narrative* Sparkle Hull) is 15 y.o female who lives with mother, step-father and goes to father's every other weekend. At his house are her step-brothers. 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 Current medications are Intuniv, Adzenys, adderall IR for ADHD s/s, Prozac for OCD, general worries, depression, Trazodone for sleep. No reported side effects with medication. * Last seen in October * Oseas states summer was pretty good, she has been in [employer], [employer] program, [employer]. She went [place] and to coffey also. She has been feeling good in terms of her mood, no periods of more significant depression symptoms but can get more sad around her menses. No thoughts of or SI, no selfharm, Has some anxiety about starting school. Taking Algebra 2 this year which is her main stressful class. She has been sleeping ok , got a new pillow which has helped as well as the trazodone. Not having so much anxious thinking at night. * ADHD - can have what she calls squirrel moments where she gets off track and forgetful * mother states the intuniv, adzenys and adderall help her with her ADHD s/s and she sees big difference when she takes it for the positive. * She has not had any illness * No big OCD thoughts, only says she has to count when she walks but says this is from marching [employer] and mother states you cannot really notice anymore * She has some good friends and band helps her feel connected socially * She says they just had an end of [employer] democrat. * This Thursday is their first game and they are playing at [employer] [facility] * weight is about 280 lbs * has a physical Thursday * I have personally reviewed the OARRS report for SPARKLE PACHECO. I have considered the risks of abuse, dependence, addiction and diversion. * I have the following concerns: no concerns. * Is the patient prescribed a combination of a benzodiazepine and opioid? No. [id number] Work Phone: History of Present illness Narrative* Sparkle is a 15 year old here today with mother for routine health maintenance exam. * Parental Concerns Raised Today Include: No new concerns today. * Mental health: Controlled with ADHD and Anxiety. * Endocrinology: Referred to Dr. Whitaker-has not f/u. * Diet: trying to maintain balance. Started using an any lately, counting calories. She overeats. Notpicky. Snacker. * Beverages are non-sweetened * Calcium source is adequate * Sleep patterns: Irregular, struggles with falling asleep. Then restless through the night. Increased trazodone and this helped a little. * Education: She is in 11th grade this fall. School behaviors are within normal limits. IEP continuedthrough high school * She has adjusted well to school and has a friend that she really enjoys being with. * Activities: Exercises just with [employer] hobbies/interests including: Enjoys band camp/marching band. Trap shooting. * Sports Participation Screening: No history of a concussion(s), no fainting or near fainting during or after exercise, no chest pain during exercise, no shortness of breath during exercise and no palpitations, rapid or skipped heart beats at rest or during exercise . * She has no known heart problems. * She has not had a family member that had a heart attack or without a cause prior to 50 years of age. * Menses: * The cycles have been regular - on average once a month. This has been new with regularity. * Her bleeding typically lasts * Bleeding: without excessive heaviness. This has regulated a lot. * Cramping: Worse on days 1-2, then subsides to minimally. * Safety: She uses safety belts or equipment, uses sunscreen, and has nonviolent peer relationships * Suicidality/Mental Health/Violence: Sparkle is coping with her stress and anxiety, does have self-confidence and does not express mental health symptoms that aren't being managed. * Dental Care: She has a dental home and dental hygiene is regularly performed * Has not had any serious prior vaccine reactions. [facility] Work Phone: History of Present illness Narrative* Sparkle Hull) is 15 y.o female who lives with mother, step-father and goes to father's every other weekend. At his house are her step-brothers. 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 Current medications are Intuniv, Adzenys, adderall IR for ADHD s/s, Prozac for OCD, general worries, depression, Trazodone for sleep. No reported side effects with medication. * Last seen in October * Oseas states summer was pretty good, she has been in [employer], [employer] program, [employer]. She went [place] and to coffey also. She has been feeling good in terms of her mood, no periods of more significant depression symptoms but can get more sad around her menses. No thoughts of or SI, no selfharm, Has some anxiety about starting school. Taking Algebra 2 this year which is her main stressful class. She has been sleeping ok , got a new pillow which has helped as well as the trazodone. Not having so much anxious thinking at night. * ADHD - can have what she calls squirrel moments where she gets off track and forgetful * mother states the intuniv, adzenys and adderall help her with her ADHD s/s and she sees big difference when she takes it for the positive. * She has not had any illness * No big OCD thoughts, only says she has to count when she walks but says this is from marching band and mother states you cannot really notice anymore * She has some good friends and band helps her feel connected socially * She says they just had an end of [employer] coffe[employer] democrat. * This Thursday is their first game and they are playing at [employer] [facility] * weight is about 280 lbs * has a physical Thursday [id number] 204 Work Phone: History of Present illness Narrative* Sparkle Hull) is 15 y.o female who lives with mother, step-father and goes to father's every other weekend. At his house are her step-brothers. 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 Current medications are Intuniv, Adzenys, adderall IR for ADHD s/s, Prozac for OCD, general worries, depression, Trazodone for sleep. No reported side effects with medication. * Last seen in Jan * Mother states Oseas is doing excellent in school. She can still have some issues with lack of focusat times and ADHD energy but able to manage with medication, also has improved self awareness. * Her mood has been stable. She was sick but did not have any onset of depression or OCD s/s, no voices as in the past. No reported thoughts of or SI, She has not had any new OCD symptoms. Only does counting of steps as she has mentioned before but says this is habit from band. * Mother states she feels overall Oseas is doing very well. She continues to make progress socially. * Sleeping well * Not sure exact weight but maybe 280s. * MOther states they have to make family changes with eating habits as step- father has CHF * I have personally reviewed the OARRS report for SPARKLE PACHECO. I have considered the risks of abuse, dependence, addiction and diversion. * I have the following concerns: no concerns. * Is the patient prescribed a combination of a benzodiazepine and opioid? No. [id number] Work Phone: History of Present illness Narrative* Sparkle Hull) is 16 y.o female who lives with mother, step-father and goes to father's every other weekend. At his house are her step-brothers. She will be a senior [employer], has IEP for ASD. Current medications are Intuniv 4 mg daily, Adzenys 18.8 mg in am, Prozac increased 40 mg for OCD, general worries, depression. Ativan 0.5 mg daily prn started, has used a few times and has been of benefit. No reported side effects with medication. * stopped trazodone and Adderall IR * Last seen 2-3 weeks ago * Ativan has helped when more anxious. * Mother felt she had a good week at camp, busy and did not call her at all * Started BC pill this week, was wiliam of blah yesterday but also was just in the house and not doingmuch * Upset today and focused on kids at school and in band being mean and not liking her, feeling bad about herself and that she cannot help how she is, people think she is annoying * Mother states Oseas gets like this before band camp, usually feels better once it starts. Mother states she has had to talk to the director before, but also Oseas can be very sensitive and have a hard time to brush off comments. Oseas still says her mood can be down and not motivated. * Mother says she is not pointing out any of the positives, went to [place] [employer], has spent time with her friend, made some friends at coffe[employer]. Oseas states the kids at coffe[employer] she was friends with were weirdlike her, into anime for example. * She feels therapy, group would be helpful but not much available where they live * Still does not feel ADHD medication works well, hard to describe other then people say she is annoying * Sleeping and eating ok * not sure weight * had physical * No new OCD symptoms * No psychosis * No SI or thoughts of , no self harm * not sexually active * no substance use * past medications * vistaril did not help * zoloft - lacked improvement over time , up to 125 mg * tenex short acting * adderall xr up to 40 mg - lacked efficacy over time * focalin xr 25 mg - lacked efficacy over time * concerta - 2015 - says gave her night terrors * trazodone not helping, too tired in am * xanax per PCP in the past helped acute anxiety [id number] 204 Work Phone: History of Present illness Narrative* Sparkle Hull) is 16 y.o female who lives with mother, step-father and goes to father's every other weekend. At his house are her step-brothers. She will be a senior [employer], has IEP for ASD. Current medications are Intuniv 4 mg daily, Adzenys 18.8 mg in am, Prozac 40 mg for OCD, general worries, depression. Ativan 0.5 mg daily prn for anxiety, . No reported side effects with medication. * Last seen 3 weeks ago * Oseas states she has been feeling ok, anxiety a lot better. She has not used the ativan every day, more on band camp days. * She says [employer] coffey is going well, she knows all her music * States her mood has been pretty good and not feeling depressed, looking forward to school starting actually * She did start BC pill a few weeks ago and adjusting to it * Oseas still does not feel the Adzenys is working well anymore. * She says her focus is all over even when when she takes it * No concern wth sleep, appetite * No new OCD symptoms * No psychosis * No SI or thoughts of , no self harm * not sexually active * no substance use * VS in November * Ht 64 in * Wt 290 * BP 128/84 * Heart rate 97 * past medications * vistaril did not help * zoloft - lacked improvement over time , up to 125 mg * tenex short acting * adderall xr up to 40 mg - lacked efficacy over time * focalin xr 25 mg - lacked efficacy over time * concerta - 2014 - says gave her night terrors * trazodone not helping, too tired in am * xanax per PCP in the past helped acute anxiety * vyvanse - in 2016 never able to get PA [id number] 204 Work Phone: History of Present illness Narrative* Sparkle Hull) is 16 y.o female who lives with mother, step-father and goes to father's every other weekend. At his house are her step-brothers. She will be a senior [employer], has IEP for ASD. Current medications are Intuniv 4 mg daily, Prozac 40 mg for OCD, general worries, depression. Ativan 0.5 mg daily prn for anxiety (does not take often) No reported side effects * Changed to VYvanse 60 mg 3 weeks ago (reported Adzenys was no longer effective) , some nausea, dizziness if outside at band but not other times. Says it tends to happen when she first takes it. * She states she has been doing very well and her ADHD s/s are much less, that she has not been called annoying in a while at [employer] camp. Her step-father says at first she was showing progress with the Vyvanse, but again needs many reminders, can have lack of focus or hyperfoucs. Sparkle agrees she saw greater impact when first changed. * Oseas states her mood has been good. She is looking forward to school starting. 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 No reported thoughts of or SI. Continues to have positive relationship with her boyfriend. * Denies OCD or significant worries * Feels better socially,. has made new friends * She is taking metformin 500 mg once per day due to insulin resistance * also on BC pill * not sure VS but can go to mother's office tomorrow to get updated VS * Sleep and appetite are stable * not sexually active * no substance use * past medications * vistaril did not help * zoloft - lacked improvement over time , up to 125 mg * tenex short acting * adderall xr up to 40 mg - lacked efficacy over time * focalin xr 25 mg - lacked efficacy over time * concerta - 2014 - says gave her night terrors * trazodone not helping, too tired in am * xanax per PCP in the past helped acute anxiety * vyvanse - in 2017 never able to get PA * Adzenys - lacked efficacy over time [id number] 204 Work Phone: History of Present illness Narrative* Sparkle Hull) is 16 y.o female who lives with mother, step-father and goes to father's every other weekend. At his house are her step-brothers. She is a senior [employer], has IEP for ASD. Current medications are Intuniv 4 mg daily, Prozac 40 mg for OCD, general worries, depression. Uses Ativan 0.5 mg as needed, rarely uses it. * Also taking Vyvanse 70 mg in am for ADHD s/s. * No side effects with medications * Main concern is vyvanse seems to wear off for later day classes also more tired and harder to focus. * She agrees she could take it at the nurse later in the day * Her mood has been very good * She is going to her aunt's with her father for Thanksgiving * She sates things are going great, grades are very good, things going well with her boyfriend. * She is looking at options for next year, able to continue in [employer] program though her current school for next year. 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 * No bothersome OCD symptoms, only counting sometimes * She had a great senior night at band, hard for it to end though * She had a good time at Homecoming and went on her first official date * WEight in Jan was 282 * She is taking metformin 500 mg once per day due to insulin resistance * also on BC pill * Sleep and appetite are stable * not sexually active * no substance use * past medications * vistaril did not help * zoloft - lacked improvement over time , up to 125 mg * tenex short acting * adderall xr up to 40 mg - lacked efficacy over time * focalin xr 25 mg - lacked efficacy over time * concerta - 2014 - says gave her night terrors * trazodone not helping, too tired in am * xanax per PCP in the past helped acute anxiety * vyvanse - in 2017 never able to get PA * Adzenys - lacked efficacy over time [id number] 204 Work Phone: Summary Purpose Family History No Family History Records Found Grandfather Name Dates Details Family history of type 2 porsche betes mellitus(V18.0, Z83.3) Status:Active Family history of premature coronary heart disease(V17.3, Z82.49) Status:Active Grandmother Name Dates Details Family history of type 2 porsche betes mellitus(V18.0, Z83.3) Status:Active Family history of Isidro thyroiditis(V18.19, Z83.49) Status:Active Mother Name Dates Details Family history of obesity(V1 8.19, Z83.49) Status:Active Family history of gastroesop hageal reflux disease(V18.59, Z83.79) Status:Active Family history of Anxiety(30 0.00, F41.9) Status:Active Family history of depression (V17.0, Z81.8) Status:Active Father Name Dates Details Family history of type 2 porsche betes mellitus(V18.0, Z83.3) Status:Active Family history of obesity(V1 8.19, Z83.49) Status:Active Family history of diabetes m ellitus(V18.0, Z83.3) Status:Active Grandfather Name Dates Details Family history of type 2 porsche betes mellitus(V18.0, Z83.3) Status:Active Family history of premature coronary heart disease(V17.3, Z82.49) Status:Active Grandmother Name Dates Details Family history of type 2 porsche betes mellitus(V18.0, Z83.3) Status:Active Family history of Isidro thyroiditis(V18.19, Z83.49) Status:Active Mother Name Dates Details Family history of obesity(V1 8.19, Z83.49) Status:Active Family history of gastroesop hageal reflux disease(V18.59, Z83.79) Status:Active Family history of Anxiety(30 0.00, F41.9) Status:Active Family history of depression (V17.0, Z81.8) Status:Active Father Name Dates Details Family history of type 2 porsche betes mellitus(V18.0, Z83.3) Status:Active Family history of obesity(V1 8.19, Z83.49) Status:Active Family history of diabetes m ellitus(V18.0, Z83.3) Status:Active Grandfather Name Dates Details Family history of type 2 porsche betes mellitus(V18.0, Z83.3) Status:Active Family history of premature coronary heart disease(V17.3, Z82.49) Status:Active Grandmother Name Dates Details Family history of type 2 porsche betes mellitus(V18.0, Z83.3) Status:Active Family history of Isidro thyroiditis(V18.19, Z83.49) Status:Active Mother Name Dates Details Family history of obesity(V1 8.19, Z83.49) Status:Active Family history of gastroesop hageal reflux disease(V18.59, Z83.79) Status:Active Family history of Anxiety(30 0.00, F41.9) Status:Active Family history of depression (V17.0, Z81.8) Status:Active Father Name Dates Details Family history of type 2 porsche betes mellitus(V18.0, Z83.3) Status:Active Family history of obesity(V1 8.19, Z83.49) Status:Active Family history of diabetes m ellitus(V18.0, Z83.3) Status:Active Grandfather Name Dates Details Family history of type 2 porsche betes mellitus(V18.0, Z83.3) Status:Active Family history of premature coronary heart disease(V17.3, Z82.49) Status:Active Grandmother Name Dates Details Family history of type 2 porsche betes mellitus(V18.0, Z83.3) Status:Active Family history of Isidro thyroiditis(V18.19, Z83.49) Status:Active Mother Name Dates Details Family history of gastroesop hageal reflux disease(V18.59, Z83.79) Status:Active Family history of obesity(V1 8.19, Z83.49) Status:Active Family history of Anxiety(30 0.00, F41.9) Status:Active Family history of depression (V17.0, Z81.8) Status:Active Father Name Dates Details Family history of diabetes m ellitus(V18.0, Z83.3) Status:Active Family history of type 2 porsche betes mellitus(V18.0, Z83.3) Status:Active Family history of obesity(V1 8.19, Z83.49) Status:Active Grandfather Name Dates Details Family history of type 2 porsche betes mellitus(V18.0, Z83.3) Status:Active Family history of premature coronary heart disease(V17.3, Z82.49) Status:Active Grandmother Name Dates Details Family history of type 2 porsche betes mellitus(V18.0, Z83.3) Status:Active Family history of Isidro thyroiditis(V18.19, Z83.49) Status:Active Mother Name Dates Details Family history of obesity(V1 8.19, Z83.49) Status:Active Family history of gastroesop hageal reflux disease(V18.59, Z83.79) Status:Active Family history of Anxiety(30 0.00, F41.9) Status:Active Family history of depression (V17.0, Z81.8) Status:Active Father Name Dates Details Family history of type 2 porsche betes mellitus(V18.0, Z83.3) Status:Active Family history of obesity(V1 8.19, Z83.49) Status:Active Family history of diabetes m ellitus(V18.0, Z83.3) Status:Active Unknown Family Member Name Dates Details Family history of type 2 porsche betes mellitus: Father, Paternal Grandmother, Paternal Grandfather(V18.0, Z83.3) Status:Active Family history of premature coronary heart disease: Paternal Grandfather(V17.3, Z82.49) Status:Active Family history of Isidro thyroiditis: Paternal Grandmother(V18.19, Z83.49) Status:Active Family history of obesity: M other, Father(V18.19, Z83.49) Status:Active Family history of gastroesop hageal reflux disease: Mother(V18.59, Z83.79) Status:Active Family history of diabetes m ellitus: Father(V18.0, Z83.3) Status:Active Anxiety: Mother Status:Active Family history of depression : Mother(V17.0, Z81.8) Status:Active Unknown Family Member Name Dates Details Family history of type 2 porsche betes mellitus: Father, Paternal Grandmother, Paternal Grandfather(V18.0, Z83.3) Status:Active Family history of premature coronary heart disease: Paternal Grandfather(V17.3, Z82.49) Status:Active Family history of Isidro thyroiditis: Paternal Grandmother(V18.19, Z83.49) Status:Active Family history of obesity: M other, Father(V18.19, Z83.49) Status:Active Family history of gastroesop hageal reflux disease: Mother(V18.59, Z83.79) Status:Active Family history of diabetes m ellitus: Father(V18.0, Z83.3) Status:Active Anxiety: Mother Status:Active Family history of depression : Mother(V17.0, Z81.8) Status:Active Unknown Family Member Name Dates Details Family history of type 2 porsche betes mellitus: Father, Paternal Grandmother, Paternal Grandfather(V18.0, Z83.3) Status:Active Family history of premature coronary heart disease: Paternal Grandfather(V17.3, Z82.49) Status:Active Family history of Isidro thyroiditis: Paternal Grandmother(V18.19, Z83.49) Status:Active Family history of obesity: M other, Father(V18.19, Z83.49) Status:Active Family history of gastroesop hageal reflux disease: Mother(V18.59, Z83.79) Status:Active Family history of diabetes m ellitus: Father(V18.0, Z83.3) Status:Active Anxiety: Mother Status:Active Family history of depression : Mother(V17.0, Z81.8) Status:Active Unknown Family Member Name Dates Details Family history of type 2 porsche betes mellitus: Father, Paternal Grandmother, Paternal Grandfather(V18.0, Z83.3) Status:Active Family history of premature coronary heart disease: Paternal Grandfather(V17.3, Z82.49) Status:Active Family history of Isidro thyroiditis: Paternal Grandmother(V18.19, Z83.49) Status:Active Family history of obesity: M other, Father(V18.19, Z83.49) Status:Active Family history of gastroesop hageal reflux disease: Mother(V18.59, Z83.79) Status:Active Family history of diabetes m ellitus: Father(V18.0, Z83.3) Status:Active Anxiety: Mother Status:Active Family history of depression : Mother(V17.0, Z81.8) Status:Active Unknown Family Member Name Dates Details Family history of type 2 porsche betes mellitus: Father, Paternal Grandmother, Paternal Grandfather(V18.0, Z83.3) Status:Active Family history of premature coronary heart disease: Paternal Grandfather(V17.3, Z82.49) Status:Active Family history of Isidro thyroiditis: Paternal Grandmother(V18.19, Z83.49) Status:Active Family history of obesity: M other, Father(V18.19, Z83.49) Status:Active Family history of gastroesop hageal reflux disease: Mother(V18.59, Z83.79) Status:Active Family history of diabetes m ellitus: Father(V18.0, Z83.3) Status:Active Anxiety: Mother Status:Active Family history of depression : Mother(V17.0, Z81.8) Status:Active Unknown Family Member Name Dates Details Family history of type 2 porsche betes mellitus: Father, Paternal Grandmother, Paternal Grandfather(V18.0, Z83.3) Status:Active Family history of premature coronary heart disease: Paternal Grandfather(V17.3, Z82.49) Status:Active Family history of Isidro thyroiditis: Paternal Grandmother(V18.19, Z83.49) Status:Active Family history of obesity: M other, Father(V18.19, Z83.49) Status:Active Family history of gastroesop hageal reflux disease: Mother(V18.59, Z83.79) Status:Active Family history of diabetes m ellitus: Father(V18.0, Z83.3) Status:Active Anxiety: Mother Status:Active Family history of depression : Mother(V17.0, Z81.8) Status:Active Unknown Family Member Name Dates Details Family history of type 2 porsche betes mellitus: Father, Paternal Grandmother, Paternal Grandfather(V18.0, Z83.3) Status:Active Family history of premature coronary heart disease: Paternal Grandfather(V17.3, Z82.49) Status:Active Family history of Isidro thyroiditis: Paternal Grandmother(V18.19, Z83.49) Status:Active Family history of obesity: M other, Father(V18.19, Z83.49) Status:Active Family history of gastroesop hageal reflux disease: Mother(V18.59, Z83.79) Status:Active Family history of diabetes m ellitus: Father(V18.0, Z83.3) Status:Active Anxiety: Mother Status:Active Family history of depression : Mother(V17.0, Z81.8) Status:Active Unknown Family Member Name Dates Details Family history of type 2 porsche betes mellitus: Father, Paternal Grandmother, Paternal Grandfather(V18.0, Z83.3) Status:Active Family history of premature coronary heart disease: Paternal Grandfather(V17.3, Z82.49) Status:Active Family history of Isidro thyroiditis: Paternal Grandmother(V18.19, Z83.49) Status:Active Family history of obesity: M other, Father(V18.19, Z83.49) Status:Active Family history of gastroesop hageal reflux disease: Mother(V18.59, Z83.79) Status:Active Family history of diabetes m ellitus: Father(V18.0, Z83.3) Status:Active Anxiety: Mother Status:Active Family history of depression : Mother(V17.0, Z81.8) Status:Active Unknown Family Member Name Dates Details Family history of type 2 porsche betes mellitus: Father, Paternal Grandmother, Paternal Grandfather(V18.0, Z83.3) Status:Active Family history of premature coronary heart disease: Paternal Grandfather(V17.3, Z82.49) Status:Active Family history of Isidro thyroiditis: Paternal Grandmother(V18.19, Z83.49) Status:Active Family history of obesity: M other, Father(V18.19, Z83.49) Status:Active Family history of depression : Mother(V17.0, Z81.8) Status:Active Anxiety: Mother Status:Active Family history of diabetes m ellitus: Father(V18.0, Z83.3) Status:Active Family history of gastroesop hageal reflux disease: Mother(V18.59, Z83.79) Status:Active Unknown Family Member Name Dates Details Family history of gastroesop hageal reflux disease: Mother(V18.59, Z83.79) Status:Active Family history of diabetes m ellitus: Father(V18.0, Z83.3) Status:Active Anxiety: Mother Status:Active Family history of depression : Mother(V17.0, Z81.8) Status:Active Family history of type 2 porsche betes mellitus: Father, Paternal Grandmother, Paternal Grandfather(V18.0, Z83.3) Status:Active Family history of premature coronary heart disease: Paternal Grandfather(V17.3, Z82.49) Status:Active Family history of Isidro thyroiditis: Paternal Grandmother(V18.19, Z83.49) Status:Active Family history of obesity: M other, Father(V18.19, Z83.49) Status:Active Unknown Family Member Name Dates Details Family history of type 2 porsche betes mellitus: Father, Paternal Grandmother, Paternal Grandfather(V18.0, Z83.3) Status:Active Family history of premature coronary heart disease: Paternal Grandfather(V17.3, Z82.49) Status:Active Family history of Isidro thyroiditis: Paternal Grandmother(V18.19, Z83.49) Status:Active Family history of obesity: M other, Father(V18.19, Z83.49) Status:Active Family history of gastroesop hageal reflux disease: Mother(V18.59, Z83.79) Status:Active Family history of diabetes m ellitus: Father(V18.0, Z83.3) Status:Active Anxiety: Mother Status:Active Family history of depression : Mother(V17.0, Z81.8) Status:Active Unknown Family Member Name Dates Details Family history of type 2 porsche betes mellitus: Father, Paternal Grandmother, Paternal Grandfather(V18.0, Z83.3) Status:Active Family history of premature coronary heart disease: Paternal Grandfather(V17.3, Z82.49) Status:Active Family history of Isidro thyroiditis: Paternal Grandmother(V18.19, Z83.49) Status:Active Family history of obesity: M other, Father(V18.19, Z83.49) Status:Active Family history of gastroesop hageal reflux disease: Mother(V18.59, Z83.79) Status:Active Family history of diabetes m ellitus: Father(V18.0, Z83.3) Status:Active Anxiety: Mother Status:Active Family history of depression : Mother(V17.0, Z81.8) Status:Active Unknown Family Member Name Dates Details Family history of type 2 porsche betes mellitus: Father, Paternal Grandmother, Paternal Grandfather(V18.0, Z83.3) Status:Active Family history of premature coronary heart disease: Paternal Grandfather(V17.3, Z82.49) Status:Active Family history of Isidro thyroiditis: Paternal Grandmother(V18.19, Z83.49) Status:Active Family history of obesity: M other, Father(V18.19, Z83.49) Status:Active Family history of gastroesop hageal reflux disease: Mother(V18.59, Z83.79) Status:Active Family history of diabetes m ellitus: Father(V18.0, Z83.3) Status:Active Anxiety: Mother Status:Active Family history of depression : Mother(V17.0, Z81.8) Status:Active Unknown Family Member Name Dates Details Family history of type 2 porsche betes mellitus: Father, Paternal Grandmother, Paternal Grandfather(V18.0, Z83.3) Status:Active Family history of premature coronary heart disease: Paternal Grandfather(V17.3, Z82.49) Status:Active Family history of Isidro thyroiditis: Paternal Grandmother(V18.19, Z83.49) Status:Active Family history of obesity: M other, Father(V18.19, Z83.49) Status:Active Family history of depression : Mother(V17.0, Z81.8) Status:Active Anxiety: Mother Status:Active Family history of diabetes m ellitus: Father(V18.0, Z83.3) Status:Active Family history of gastroesop hageal reflux disease: Mother(V18.59, Z83.79) Status:Active Unknown Family Member Name Dates Details Family history of type 2 porsche betes mellitus: Father, Paternal Grandmother, Paternal Grandfather(V18.0, Z83.3) Status:Active Family history of premature coronary heart disease: Paternal Grandfather(V17.3, Z82.49) Status:Active Family history of Isidro thyroiditis: Paternal Grandmother(V18.19, Z83.49) Status:Active Family history of obesity: M other, Father(V18.19, Z83.49) Status:Active Family history of gastroesop hageal reflux disease: Mother(V18.59, Z83.79) Status:Active Family history of diabetes m ellitus: Father(V18.0, Z83.3) Status:Active Anxiety: Mother Status:Active Family history of depression : Mother(V17.0, Z81.8) Status:Active Unknown Family Member Name Dates Details Family history of type 2 porsche betes mellitus: Father, Paternal Grandmother, Paternal Grandfather(V18.0, Z83.3) Status:Active Family history of premature coronary heart disease: Paternal Grandfather(V17.3, Z82.49) Status:Active Family history of Isidro thyroiditis: Paternal Grandmother(V18.19, Z83.49) Status:Active Family history of obesity: M other, Father(V18.19, Z83.49) Status:Active Family history of gastroesop hageal reflux disease: Mother(V18.59, Z83.79) Status:Active Family history of diabetes m ellitus: Father(V18.0, Z83.3) Status:Active Anxiety: Mother Status:Active Family history of depression : Mother(V17.0, Z81.8) Status:Active Unknown Family Member Name Dates Details Family history of type 2 porsche betes mellitus: Father, Paternal Grandmother, Paternal Grandfather(V18.0, Z83.3) Status:Active Family history of premature coronary heart disease: Paternal Grandfather(V17.3, Z82.49) Status:Active Family history of Isidro thyroiditis: Paternal Grandmother(V18.19, Z83.49) Status:Active Family history of obesity: M other, Father(V18.19, Z83.49) Status:Active Family history of gastroesop hageal reflux disease: Mother(V18.59, Z83.79) Status:Active Family history of diabetes m ellitus: Father(V18.0, Z83.3) Status:Active Anxiety: Mother Status:Active Family history of depression : Mother(V17.0, Z81.8) Status:Active Unknown Family Member Name Dates Details Family history of type 2 porsche betes mellitus: Father, Paternal Grandmother, Paternal Grandfather(V18.0, Z83.3) Status:Active Family history of premature coronary heart disease: Paternal Grandfather(V17.3, Z82.49) Status:Active Family history of Isidro thyroiditis: Paternal Grandmother(V18.19, Z83.49) Status:Active Family history of obesity: M other, Father(V18.19, Z83.49) Status:Active Family history of depression : Mother(V17.0, Z81.8) Status:Active Anxiety: Mother Status:Active Family history of diabetes m ellitus: Father(V18.0, Z83.3) Status:Active Family history of gastroesop hageal reflux disease: Mother(V18.59, Z83.79) Status:Active Unknown Family Member Name Dates Details Family history of type 2 porsche betes mellitus: Father, Paternal Grandmother, Paternal Grandfather(V18.0, Z83.3) Status:Active Family history of premature coronary heart disease: Paternal Grandfather(V17.3, Z82.49) Status:Active Family history of Isidro thyroiditis: Paternal Grandmother(V18.19, Z83.49) Status:Active Family history of obesity: M other, Father(V18.19, Z83.49) Status:Active Family history of gastroesop hageal reflux disease: Mother(V18.59, Z83.79) Status:Active Family history of diabetes m ellitus: Father(V18.0, Z83.3) Status:Active Anxiety: Mother Status:Active Family history of depression : Mother(V17.0, Z81.8) Status:Active Unknown Family Member Name Dates Details Family history of depression : Mother(V17.0, Z81.8) Status:Active Anxiety: Mother Status:Active Family history of diabetes m ellitus: Father(V18.0, Z83.3) Status:Active Family history of gastroesop hageal reflux disease: Mother(V18.59, Z83.79) Status:Active Family history of type 2 porsche betes mellitus: Father, Paternal Grandmother, Paternal Grandfather(V18.0, Z83.3) Status:Active Family history of premature coronary heart disease: Paternal Grandfather(V17.3, Z82.49) Status:Active Family history of Isidro thyroiditis: Paternal Grandmother(V18.19, Z83.49) Status:Active Family history of obesity: M other, Father(V18.19, Z83.49) Status:Active Unknown Family Member Name Dates Details Family history of type 2 porsche betes mellitus: Father, Paternal Grandmother, Paternal Grandfather(V18.0, Z83.3) Status:Active Family history of premature coronary heart disease: Paternal Grandfather(V17.3, Z82.49) Status:Active Family history of Isidro thyroiditis: Paternal Grandmother(V18.19, Z83.49) Status:Active Family history of obesity: M other, Father(V18.19, Z83.49) Status:Active Family history of gastroesop hageal reflux disease: Mother(V18.59, Z83.79) Status:Active Family history of diabetes m ellitus: Father(V18.0, Z83.3) Status:Active Anxiety: Mother Status:Active Family history of depression : Mother(V17.0, Z81.8) Status:Active Unknown Family Member Name Dates Details Family history of type 2 porsche betes mellitus: Father, Paternal Grandmother, Paternal Grandfather(V18.0, Z83.3) Status:Active Family history of premature coronary heart disease: Paternal Grandfather(V17.3, Z82.49) Status:Active Family history of Isidro thyroiditis: Paternal Grandmother(V18.19, Z83.49) Status:Active Family history of obesity: M other, Father(V18.19, Z83.49) Status:Active Family history of gastroesop hageal reflux disease: Mother(V18.59, Z83.79) Status:Active Family history of diabetes m ellitus: Father(V18.0, Z83.3) Status:Active Anxiety: Mother Status:Active Family history of depression : Mother(V17.0, Z81.8) Status:Active Unknown Family Member Name Dates Details Family history of type 2 porsche betes mellitus: Father, Paternal Grandmother, Paternal Grandfather(V18.0, Z83.3) Status:Active Family history of premature coronary heart disease: Paternal Grandfather(V17.3, Z82.49) Status:Active Family history of Isidro thyroiditis: Paternal Grandmother(V18.19, Z83.49) Status:Active Family history of obesity: M other, Father(V18.19, Z83.49) Status:Active Family history of gastroesop hageal reflux disease: Mother(V18.59, Z83.79) Status:Active Family history of diabetes m ellitus: Father(V18.0, Z83.3) Status:Active Anxiety: Mother Status:Active Family history of depression : Mother(V17.0, Z81.8) Status:Active Advance Directives No Advanced Directives Records FoundNo Advanced Directives Records FoundNo Advanced Directives Records FoundNo Advanced Directives Records FoundNo Advanced Directives Records FoundNo Advanced Directives Records Found Chief Complaint 15 year WCCAccompanied by mother. Additional Source Comments INFORMATION SOURCE (unrecogn ized section and content) DATE CREATED AUTHOR 04/06/2018 [facility] DATE CREATED AUTHOR AUTHOR'S ORGANIZ ATION 09/02/2018 [facility] DATE CREATED AUTHOR AUTHOR'S ORGANIZ ATION 08/10/2021 [facility] DATE CREATED AUTHOR AUTHOR'S ORGANIZ ATION 08/08/2022 [facility] DATE CREATED AUTHOR AUTHOR'S ORGANIZ ATION 02/06/2024 [facility] EPIC DATE CREATED AUTHOR AUTHOR'S ORGANIZ ATION 02/18/2024 Hay Garcia [facility] Care Teams (unrecognized sec tion and content) Elevator Mechanic Relationship Specialty Start Date End Date Shaikh Noriega MD PCP - General Internal Medicine 02/27/23 Elevator Mechanic Relationship Specialty Start Date End Date Shaikh Noriega MD PCP - General Internal Medicine 02/27/23 Reason for Visit (unrecogniz ed section and content) Reason Comments Psychiatric Evaluation [facility] referral Specialty Diagnoses / Procedures Referred By Contac t Referred To Contact Psychiatry / Behavioral Health Diagnoses ADHD (attention deficit hyperactivity disorder), combined type ([facility]) Procedures [place] OFFICE/OUTPATIENT NEW HIGH MDM 60-74 MINUTES Kim Lutz, JANNA [address] [place] [address] Rodriguez Weaver, PROPERTY MANAGEMENT ACCOUNTANT-DINING CAR WAITER/WAITRESS [address] [place] [address] Referral ID Status Reason Start Date Expiration Date V isits Requested Visits Authorized [id number] Closed Specialty Services Required 05/26/2023 11/22/2023 1 1 FOR RECORDS PERTAINING TO PATIENTS WHO ARE OR HAVE BEEN ENROLLED IN A CHEMICAL DEPENDENCY/SUBSTANCEABUSE PROGRAM, SOME INFORMATION MAY BE OMITTED. This clinical summary was aggregated from multiple sources. Caution should be exercised in using it in the provision of clinical care. This summary normalizes information from multiple sources, and as a consequence, information in this document may materially change the coding, format and clinical context of patient data. In addition, data may be omitted in some cases. CLINICAL DECISIONS SHOULD BE BASED ON THE PRIMARY CLINICAL RECORDS. [employer] provides no warranty or guarantee of the accuracy or completeness of information in this document.
[2024-02-20 19:18] VITALS: BP 129/90; PULSE 105; TEMP 37; O2SAT 97; BMI 56.3
--- NOTE | 2024-02-20 20:07 | ED.GENADUL1 ---
HPI HPI - General Adult General Chief complaint: Urogenital-Female Stated complaint: Urine Rentention Time Seen by Provider: 02/20/24 19:23 Source: patient and family Mode of arrival: walk-in Limitations: no limitations History of Present Illness HPI narrative: 18-year-old female to the emergency department chief complaint of dysuria, urgency, frequency. Symptoms been ongoing for several weeks. She is seen her PCP for this and had a negative urinalysis and culture a few days ago. She has been referred to urology. They have a high suspicion she may have a urethral stricture causing her symptoms. Mother brought her tonight because she was complaining of urine retention. She was spending a lot of time in the bathroom trying to urinate. They report normal bowel movements. No fever, sweats, chills. No flank pain. She is otherwise at her baseline health. Related Data Home Medications ?Medication ?Instructions ?Recorded ?Confirmed glycopyrrolate 1 mg tablet 2 mg PO DAILY 02/20/24 02/20/24 levonorgestrel 0.15 mg-ethinyl 1 tab PO DAILY 02/20/24 02/20/24 estradiol 30 mcg tablets,3 mos pack(91) lisdexamfetamine 20 mg capsule 60 mg PO DAILY 02/20/24 02/20/24 (Vyvanse) lorazepam 0.5 mg tablet mg 02/20/24 paroxetine HCl 10 mg tablet mg PO 02/20/24 paroxetine HCl 20 mg tablet mg PO 02/20/24 paroxetine HCl 40 mg tablet 40 mg PO DAILY 02/20/24 02/20/24 trazodone 150 mg tablet 150 mg PO .HS 02/20/24 02/20/24 Allergies Allergy/AdvReac Type Severity Reaction Status Date / Time sulfamethoxazole Allergy Intermediate Rash Verified 02/20/24 19:15 [From Bactrim] trimethoprim [From Bactrim] Allergy Intermediate Rash Verified 02/20/24 19:15 Opioid HPI Opioid Management Most Recent Opioid Data: No Data to Display Review of Systems ROS Status of ROS 10 or more systems reviewed and unremarkable except as noted in history and below Exam Narrative Exam Narrative: VITALS: I have reviewed the triage vital signs. GENERAL: Well developed, well appearing adult in no acute distress. NEURO: Alert and oriented. Moves all extremities. Face is symmetric and expressive. EYES: PERRL. No scleral icterus or conjunctival injection. No discharge. HENT: Normocephalic, atraumatic. Hearing is grossly intact. Nares grossly patent and without discharge. Mucous membranes moist. NECK: No JVD. Patient moves neck without restriction. GI/: Abdomen is soft and non-tender. Normoactive bowel sounds. No palpable bladder. EXTREMITIES: Symmetric muscle bulk. No joint swelling. No clubbing, cyanosis, or deformity. SKIN: Warm and dry. Normal turgor. No rash or lesions appreciated. PSYCH: Mood, affect, and interaction is appropriate to the setting. Constitutional Vital Signs, click to edit/add: Last Vital Signs Temp 98.6 F 02/20/24 19:18 Pulse 105 H 02/20/24 19:18 Resp 16 02/20/24 19:35 BP 129/90 02/20/24 19:18 Pulse Ox 97 02/20/24 19:18 O2 Del Method Room Air 02/20/24 19:18 Course Vital Signs Vital signs: Vital Signs Temperature 98.6 F 02/20/24 19:18 Pulse Rate 105 H 02/20/24 19:18 Respiratory Rate 15 02/20/24 19:18 Blood Pressure 129/90 02/20/24 19:18 Pulse Oximetry 97 02/20/24 19:18 Oxygen Delivery Method Room Air 02/20/24 19:18 Temperature 98.6 F 02/20/24 19:18 Pulse Rate 105 H 02/20/24 19:18 Respiratory Rate 16 02/20/24 19:35 Blood Pressure 129/90 02/20/24 19:18 Pulse Oximetry 97 02/20/24 19:18 Oxygen Delivery Method Room Air 02/20/24 19:18 Medical Decision Making [facility] Narrative Medical decision making narrative: Well-appearing 18-year-old female with history of Asperger's to the emergency department urgency, frequency, dysuria. Vital stable, the patient is afebrile. Recent urine and culture negative. Follow-up with urology on Thursday for the symptoms. Was doing well on Azo but was discontinued recently. Bladder scan did not show any urine retention. Will obtain a urinalysis. UA without definitive evidence of infection. Dip was limited by her Azo. She had some squames and trace bacteria on the microscopy. Culture was sent. Discussed findings with mother. No urinary retention. She is appropriate for follow-up with urology. Return precautions were discussed. All questions were answered. Patient was discharged home. Medical Records Medical records reviewed: Yes I reviewed the patient's medical records Lab Data Lab results reviewed: Yes I reviewed the patient's lab results Labs: Lab Results 02/20/24 Range/Units 20:10 Urine Color Dk. orange (YELLOW) Urine Clarity Clear (CLEAR) Urine pH Color interference A (5.0-9.0) Ur Specific Marion <=1.005 A (1.005-1.025) Urine Protein Color interference A (NEG/TRACE) mg/dL Urine Glucose (UA) Color interference A (NEGATIVE) mg/dL Urine Ketones Color interference A (NEGATIVE) mg/dL Urine Occult Blood Color interference A (NEGATIVE) Urine Nitrite Color interference A (NEGATIVE) Urine Bilirubin Color interference A (NEGATIVE) Urine Urobilinogen Color interference A (0.2-1.0) EU/dL Ur Leukocyte Esterase Color interference A (NEGATIVE) Urine RBC 0-2 (0-2) #/HPF Urine WBC 0-2 A (NONE SEEN) #/HPF Ur Squamous Epith Cells Few A (NONE/RARE) #/LPF Urine Crystals None seen (None Seen) #/HPF Urine Bacteria Small A (NONE SEEN) #/HPF Urine Casts None seen (NONE SEEN) #/LPF Urine Mucus None seen (NONE SEEN) Ur Culture Indicated? Yes Urine HCG, Qual Negative (NEGATIVE) Discharge Plan Discharge Stand Alone Forms: Work/School Release, Portal Instructions Chief Complaint: Urogenital-Female Clinical Impression: Dysuria Patient Disposition: Home, Self-Care Time of Disposition Decision: 20:35 Condition: Good Mode of Transportation: Private Vehicle Prescriptions / Home Meds: No Action glycopyrrolate 1 mg tablet 2 mg PO DAILY lisdexamfetamine [Vyvanse] 20 mg capsule 60 mg PO DAILY paroxetine HCl 10 mg tablet PO lorazepam 0.5 mg tablet paroxetine HCl 20 mg tablet PO paroxetine HCl 40 mg tablet 40 mg PO DAILY trazodone 150 mg tablet 150 mg PO .HS levonorgestrel-ethinyl estrad 0.15 mg-30 mcg (91) tablets,dose pack,3 month 1 tab PO DAILY Print Language: Tamazight Instructions: Dysuria (ED) Additional Instructions: Call the office of your primary care doctor to arrange for follow-up within the above-stated timeframe. Your ED visit was focused on your acute issue and does not replace primary care. You should review your labs, imaging, and diagnoses from this ED visit with your primary care physician. There may be non-emergent/ incidental findings that need further evaluation. You should review your vital signs including blood pressure with your PCP. If you were prescribed medications you should discuss possible side-effects and drug interactions with your pharmacist. Call 911 or go to the nearest Emergency Department if you develop any new or worsening symptoms. Keep appoint with Dr. Hall, urology. Referrals: Kim Lutz NP [Primary Care Provider] - 1 week
[2024-02-20 20:19] LABS: Clarity Urine CLEAR (CLEAR); Color Urine DK. ORANGE (YELLOW); Specific Gravity Urine <=1.005 (1.005-1.025)
[2024-02-20 20:21] LABS: Bilirubin Urine COLOR INTERFERENCE (NEGATIVE); Blood Urine COLOR INTERFERENCE (NEGATIVE); Glucose Urine UA COLOR INTERFERENCE mg/dL (NEGATIVE); Ketones Urine COLOR INTERFERENCE mg/dL (NEGATIVE); Leukocyte Esterase Urine COLOR INTERFERENCE (NEGATIVE); Nitrite Urine COLOR INTERFERENCE (NEGATIVE); Protein Urine COLOR INTERFERENCE mg/dL (NEG/TRACE); Urine Microscopic Indicated YES; Urobilinogen Urine COLOR INTERFERENCE EU/dL (0.2-1.0); pH Urine COLOR INTERFERENCE (5.0-9.0)
[2024-02-20 20:22] LABS: HCG Qualitative Urine* NEGATIVE (NEGATIVE); Internal Control Within Normal Limits
[2024-02-20 20:27] LABS: Bacteria Urine SMALL #/HPF (NONE SEEN); Cast Seen? NONE SEEN #/LPF (NONE SEEN); Crystals Seen? None Seen #/HPF (None Seen); Mucus Urine NONE SEEN (NONE SEEN); RBC Urine 0-2 #/HPF (0-2); Squamous Epithelial Cell Urine FEW #/LPF (NONE/RARE); WBC Urine 0-2 #/HPF (NONE SEEN)
[2024-02-20 20:28] LABS: Urine Culture Indicated YES
== END 2024-02-20 20:41 | disposition home or self-care (01) ==
PROVIDERS: Emergency Provider Student in an Organized Health Care Education/Training Program; PCP Nurse Practitioner
DX: R30.0 Dysuria (principal); F84.5 Asperger's syndrome
CPT/HCPCS: 81001; 84703; 87086; 99283

== ENCOUNTER 2024-03-09 15:39 | Outpatient (OUT) | payer BC, SELFPAY ==
--- NOTE | 2024-03-09 15:56 | US_ITS ---
[address] [address] Patient Name: ISAK RASMUSSEN MRN: [id number] date: 2005 Sex: F Assigned Patient Location: Current Patient Location: Accession/Order Number: [id number] Exam Date: 03/09/2024 16:08 Report Date: 03/10/2024 09:44 At the request of: SANTOS BENOIT Procedure: US renal bladder EXAMINATION: US renal bladder HISTORY: Flank pain R10.9 COMPARISON: No relevant comparison available. TECHNIQUE: Ultrasound examination was performed of the bladder. FINDINGS: Right Kidney: Normal in size, contour and echotexture. The cortex measures 1.5 cm. No solid mass, hydronephrosis or obstructing nephrolithiasis Height: 4.13 cm Length: 11.18 cm Width: 5.94 cm Left Kidney: Normal in size, contour and echotexture. The cortex measures 1.5 cm. No solid mass, hydronephrosis or obstructing nephrolithiasis Height: 5.66 cm Length: 13.50 cm Width: 5.59 cm Urinary bladder wall measures 2 mm, normal. Prevoid volume 466 mL. Post void volume 5 mL Urinary jets: Visualized bilaterally US/US renal bladder IMPRESSION: No abnormality observed Electronically authenticated by: AFSANEH GRANT Date: 03/10/2024 09:44
[2024-03-09 16:30] LABS: Anion Gap 14.4; BUN Creatinine Ratio 12.5; Calcium 9.2 mg/dL (8.5-10.1); Carbon Dioxide 25.5 mmol/L (21.0-32.0); Chloride 101 mmol/L (98-107); Estimated GFR (African America >60 (>=60); Estimated GFR (Non-African Ame >60 (>=60); Glucose 84 mg/dL (74-106); Potassium 3.9 mmol/L (3.5-5.1); Sodium 137 mmol/L (136-145)
== END 2024-03-09 15:40 | disposition home or self-care (01) ==
LOC: US 15:40
PROVIDERS: PCP Nurse Practitioner; Visit Provider Nurse Practitioner Family
DX: R10.9 Unspecified abdominal pain (principal)
CPT/HCPCS: 36415; 76770; 80048

== ENCOUNTER 2025-01-14 10:46 | Outpatient (OUT) | payer BC, SELFPAY ==
--- OUTSIDE RECORDS SUMMARY | 2025-01-14 10:49 | XMS_ITS | Encounter Summary ---
Author Organization [facility] Address [address] [place] [address] Phone Care Team Providers Care Store Keeper [place] [id number], Number Primary Care Provide r Unavailable Trudy Fernandes PhD Primary Care Provider Un available Encounter Details Date Type Department Care Team (Late st Contact Info) Description 12/25/2018 Orders Only [facility] [address] [place] [address] Conversion, Onbase Social History Tobacco Use Types Packs/Day Years Used Date Smoking Tobacco: Never Assessed Comments Unknown Sex and Gender Information Value Date Recorded Sex Assigned at Not on file Legal Sex Female 1:27 PM EST Gender Identity Not on file Sexual Orientation Not on file documented as of this encounter Plan of Treatment Scheduled Orders Name Type Priority Associated Diagnoses Orde r Schedule OUTSIDE LAB SCAN Lab Ordered: 12/25/2018 documented as of this encounter Visit Diagnoses Not on filedocumented in this encounter Care Teams Store Keeper Relationship Specialty Start [place] [id number], [place] [id number] PCP - General 10/13/22 Trudy Fern[place], [place] [id number] PCP - General Psychology 01/13/24 documented as of this encounter
--- OUTSIDE RECORDS SUMMARY | 2025-01-14 10:49 | XMS_ITS | Clinical Summary ---
Author Organization [facility] Address [address] [place] [address] Phone Care Team Providers Care Cell Builder Name Role Phone Trudy Fernandes A PhD Primary Care Provider Un available Social History Tobacco Use Types Packs/Day Years Used Date Smoking Tobacco: Never Assessed Comments Unknown Sex and Gender Information Value Date Recorded Sex Assigned at Not on file Legal Sex Female 1:27 PM EST Gender Identity Not on file Sexual Orientation Not on file Last Filed Vital Signs Vital Sign Reading Time Taken Comments Blood Pressure 116/70 02/15/2021 11:30 AM EDT Pulse 103 02/15/2021 11:30 AM EDT Temperature 36.9 C (98.4 F) 03/25/2021 4:09 PM EDT Respiratory Rate 18 07/30/2015 9:53 AM EST Oxygen Saturation 98% 02/15/2021 11:30 AM EDT Inhaled Oxygen Concentration - - Weight 129 kg (283 lb 6 oz) 03/25/2021 4:09 PM E DT Height 161.9 cm (5' 3.75 ) 02/15/2021 11:30 AM E DT Body Mass Index - - Plan of Treatment Health Maintenance Due Date Last Done Comments HIV Screening 2004 Lipid Panel 2004 Yearly Adult Physical 2004 Hearing Screening (#1) 2008 HPV Vaccines (1 - 3-dose series) 10/17/2019 Meningococcal B Vaccine (1 of 2 - Standard) 2020 Hepatitis C Screening 2022 COVID-19 Vaccine ( season) 2024 Influenza Vaccine (#1) 2025 6, 03/29/2015, 03/24/2014, Additional history exists DTaP/Tdap/Td Vaccines (7 - Td or Tdap) 05/29/2026 05/29/2016, 10/30/2009, 05/14/2006, Additional history exists Zoster Vaccines (1 of 2) 2054 10/30/2009, 01/27 Hepatitis B Vaccines Completed 07/22/2005, 2004, 2004 Pneumococcal Vaccine: Pediatrics and At-Risk Adult Patients Aged Out 10/28/2005, 07/22/2005, 02/18/2005, Additional history exists No longer eligible based on patient's age to complete this topic HIB Vaccines Completed 05/14/2006, 06/30, 02/18/2005, Additional history exists IPV Vaccines Completed 10/30/2009, 06/30, 02/18/2005, Additional history exists MMR Vaccines Completed 10/30/2009, 05/14/2006 Varicella Vaccines Completed 10/30/2009, 02/05/2006 Meningococcal Vaccine Aged Out 05/29/2016 No annabel berhane eligible based on patient's age to complete this topic Hepatitis A Vaccines Completed 06/03/2017, 05/14/20 06 Rotavirus Vaccines Aged Out No longer eligible based on patient's age to complete this topic Care Teams Cell Builder Relationship Specialty Start Date End Date Trudy Fernandes, PhD PCP - General Psychology 01/13/24
--- OUTSIDE RECORDS SUMMARY | 2025-01-14 10:49 | XMS_ITS | Patient Health Record ---
Author Organization [facility] Address [address] [place] [address] Care Team Providers Care Refining Engineer Name Role Phone Leonila Canela Primary Care Provider Allergies Allergen (clinical drug ingredient) Drug/Non Drug Allergy documented on EMR Reaction Allergy Type Onset Date Status sulfamethoxazole / trimethoprim Bactrim rash Drug Allergy Active Reason For Referral No Information Medications Medication SIG (Take, Route, Frequency, Duration) Notes Start Date End Date Status Adzenys XR-ODT 18.8 MG 1 tablet in the morning Orally Once a day Not-Taking Vyvanse 70 MG 1 capsule in the morning Orally Once a day; Duration: 30 days F90.2 02/04/2023 Active Vyvanse 70 MG 1 capsule in the morning Orally Once a day; Duration: 30 days F90.2 DNF until 02/27/2023 02/04/2023 Active LORazepam 0.5 MG 1 tablet as needed Orally daily F41.1 12/31/2022 Active Glycopyrrolate 1 MG 2 tablets Orally Once a day Active Depakote ER 500 MG 1 tablet Orally twice a day (bid); Duration: 30 day(s) 12/08/2022 Active guanFACINE HCl ER 4 MG as directed Orally Active traZODone HCl 50 MG 1.5 tablets Orally HS PRN Active Cetirizine HCl 10 MG 1 tablet Orally Once a day Active Vyvanse 70 MG 1 capsule in the morning Orally Once a day; Duration: 30 days F90.2 04/20/2023 Active metFORMIN HCl 500 MG 1 tablet with a meal Orally Once a day Active PROzac 20 MG 2 capsules Orally Once a day; Duration: 30 day(s) total dose is 40mg Active Jolessa 0.15-0.03 MG 1 tablet Orally Once a day Active Vyvanse 20 MG 1 capsule in the morning Orally Once a day; Duration: 30 days .; TAKE WITH 50MG CAPSULE FOR A TOTAL OF 70MG 03/09/2023 Active Ativan Active Vyvanse 50 MG 1 capsule in the morning Orally Once a day; Duration: 30 days .; TAKE WITH 20MG CAPSULE FOR A TOTAL OF 70MG 03/09/2023 Active Social History Tobacco Use: Social History Observation Description Date Details (start date - stop date) Never Smoker NA - NA Tobacco Screen: Question Answer Notes Are you a: never smoker Alcohol Screening: Question Answer Notes Did you have a drink containing alcohol in the p ast year? No Points 0 Interpretation Negative Problems Problem Type SNOMED Code ICD Code Onset Dates Problem Status W/U Status Risk Notes Problem Attention deficit hyperactivity disorder (702261176) ADHD (attention deficit hyperactivity disorder), combined type (F90.2) Active confirmed Problem Autism spectrum disorder (93964483) Autism Spectrum Disorder (F84.0) Active confirmed Problem Generalized anxiety disorder (20823115) GAYLE (generalized anxiety disorder) (F41.1) Active confirmed Plan Of Treatment No Information Insurance Providers Payer Name Payer Address Payer Phone Subscriber Number Group Number Insured Name Patient Relationship to Insured Coverage Start Date Coverage End Date [employer]THE[employer] Primary [address] [place] [address] [id number] ISAK RASMUSSEN Self - patient is the insured 3 Medical (General) History Medical History History ICD Code migraine headaches morbid obesity ADHD anxiety depression Surgical History Surgery Date(Month/Year) Bilateral tubes in ears x 3
--- OUTSIDE RECORDS SUMMARY | 2025-01-14 10:49 | XMS_ITS | Encounter Summary ---
Author Organization [facility] Address [address] [place] [address] Phone Care Team Providers Care Specialized Developer [place] [id number], Number Primary Care Provide r Unavailable Trudy Fernandes PhD Primary Care Provider Un available Encounter Details Date Type Department Care Team (Late st Contact Info) Description 06/11/2018 Orders Only [facility] [address] [place] [address] Conversion, Onbase Social History Tobacco Use Types [...] r Schedule OUTSIDE LAB SCAN Lab Ordered: 06/11/2018 documented as of this encounter Visit Diagnoses Not on filedocumented in this encounter Care Teams Specialized Developer Relationship Specialty Start [place] [id number], [place] [id number] PCP - General 10/13/22 Trudy Fern[place] [id number] PCP - General Psychology 01/13/24 documented as of this encounter
--- OUTSIDE RECORDS SUMMARY | 2025-01-14 10:49 | XMS_ITS | Clinical Summary ---
Author Organization [facility] Address [address] [place], [place] [id number] Care Team Providers Care Toddler Lead Teacher Name Role Phone Unavailable Primary Care Provider Unavailabl e Active Problems Problem Noted Date Diagnosed Date Autism spectrum disorder 03/10/2018 ADHD (attention deficit hype ractivity disorder), combined type 03/10/2018 Other mixed anxiety disorders 03/10/2018 Social History Tobacco Use Types Packs/Day Years Used Date Smoking Tobacco: Never Assessed Area Deprivation Index Answer Date David rded National Score (1-100), lower number is lower ri sk Not on file 06/07/2020 State Score (1-10), lower number is lower risk N ot on file 06/07/2020 Data from: https://www.neighborhoodatlas.medicine.[facility].edu/. Last address used for calculation Not on file 06/07/2020 Comments Unknown Sex and Gender Information Value Date Recorded Sex Assigned at Not on file Legal Sex Female 9:31 AM EDT Gender Identity Not on file Sexual Orientation Not on file Plan of Treatment Health Maintenance Due Date Last Done Comments Peds To Adult Transition Initial Discussion 2016 Peds To Adult Transition Annual Assessment 2018 HPV Vaccine (1 - 3-dose series) 10/17/2019 Meningococcal B Vaccine (1 of 2 - Standard) 2020 Anxiety Screening 2022 Chlamydia Screening (18-24) 2022 Depression Screening 2022 GC (Gonorrhea) Screening (18-24) 2022 HIV Screening 2022 Hepatitis C Screening 2022 DTaP,Tdap,Td Vaccine (1 - Tdap) 10/17/2023 Hepatitis B Vaccine (1 of 3 - 19+ 3-dose series) 10/16 Covid-19 Vaccine ( - 2023- season) 2024 Influenza Vaccine (#1) 2025 Insurance BLUE CARD PPO OOS
--- OUTSIDE RECORDS SUMMARY | 2025-01-14 10:50 | XMS_ITS | CCD ---
Author Organization [facility] Inform ion Partnership [facility] Care Team Providers Care Commodities Manager Name Role Phone JEFFERY DELAROSA Unavailable Unavailable Waynar, Merritt Mariah Attending Unavailable Waynar, Merritt Mariah Referring Unavailable Waynar, Merritt Mariah Primary Care Unavailable Marino Espino Attending Unavailabl e OaklandMarino Referring Unavailabl e Waynar, Merritt Mariah Primary Care Unavailable Ramon, Lula Aparicio Attending Unavailable Ramon, Lula Aparicio Referring Unavailable Ramon, Lula Alessandra Primary Care Unavailable Marino Espino Attending Unavailabl e SrinivasMarino garcia Referring Unavailabl e Ramon, Lula Alessandra Primary Care Unavailable Marino Espino Attending Unavailabl e SrinivasMarino garcia Referring Unavailabl e Ramon, Lula Alessandra Primary [...] Unavailable Unavailable Unknown, Unknown Unavailable Unavailable AICHHOLZ, ENVIRONMENTAL EMERGENCIES ASSISTANT KIM Primary Care Unavailable AUSTYN, DR ASHFORD Consulting Unavailable AUSTYN, DR ASHFROD Attending Unavailable HAY, DR ASHFORD Admitting Unavailable SHERRELL BOWEN Consulting Unavailable AICHHOLZ, ENVIRONMENTAL EMERGENCIES ASSISTANT KIM Primary Care Unavailable AICHHOLZ, ENVIRONMENTAL EMERGENCIES ASSISTANT KIM Consulting Unavailable AICHHOLZ, ENVIRONMENTAL EMERGENCIES ASSISTANT KIM Attending Unavailable AICHHOLZ, ENVIRONMENTAL EMERGENCIES ASSISTANT KIM Admitting Unavailable AICHHOLZ, ENVIRONMENTAL EMERGENCIES ASSISTANT KIM Primary Care Unavailable AICHHOLZ, ENVIRONMENTAL EMERGENCIES ASSISTANT KIM Consulting Unavailable AICHHOLZ, ENVIRONMENTAL EMERGENCIES ASSISTANT KIM Attending Unavailable AICHHOLZ, ENVIRONMENTAL EMERGENCIES ASSISTANT KIM Admitting Unavailable Hari ZARAGOZA, Vega Primary Care Provider AICHAUSTIN, KIM De La Torre Primary Care Physician Radha ZARAGOZA, Justin Primary Care Provider [phone] Aicholz FISCAL MANAGER, Kim Unavailable Aichholz FISCAL MANAGER, Kim Unavailable Inga Hall Attending Unavailable Lolita Richardson Attending Unavailable Lolita Richardson Attending Unavailable Rosa [facility], Chelsea L Unavailable Danielle-Nossek NEWSPAPER EDITOR-LITHOPLATE MAKER, Rodriguez M Unavailable DANIELLE-NOSSEK, RODRIGUEZ M Attending Unavailab le ROSA, CHELSEA L Attending Unavailable DANIELLE-NOSSEK, RODRIGUEZ M Attending Unavailab le ROSA, CHELSEA L Attending Unavailable ROSA, CHELSEA L Attending Unavailable DANIELLE-NOSSEK, RODRIGUEZ M Attending Unavailab krystal ROSA, CHELSEA L Attending Unavailable AICHHOLZ, KIM Attending Unavailable DANIELLE-NOSSEK, RODRIGUEZ M Attending Unavailab le ROSA, CHELSEA L Attending Unavailable DANIELLE-NOSSEK, RODRIGUEZ M Attending Unavailab le ROSA, CHELSEA L Attending Unavailable DANIELLE-NOSSEK, RODRIGUEZ M Attending Unavailab le ROSA, CHELSEA L Attending Unavailable AICHHOLZ, KIM Attending Unavailable ROSA, CHELSEA L Attending Unavailable Allergies Allergy Classification Reported Allergen(s) Allergy Type Date of Onset Reaction(s) Facility Sulfamethoxazole / Trimethoprim (3 sources) Sulfamethoxazole / Trimethoprim; Translations: [Bactrim] Drug Allergy Rash [facility] [address] Work Phone: (20 sources) Sulfamethoxazole / Trimethoprim; Translations: [Bactrim] Drug Allergy 07-20-19 14 Rash, Nausea (finding), Eruption of skin (disorder) [facility] (20 sources) Sulfamethoxazole / Trimethoprim Drug Allergy 05-07-20 23 Rash, Other, GI intolerance [facility] Medications Current Medications Medication Drug Class(es) Dates Sig (Normalized) Sig (Original) [id number] actuat albuterol 0.09 mg/actuat metered dose inhaler (19 sources) beta2-Adrenergic Agonist Start: 06-27-2024 End: 07-27-2024 take 2 puff(s) by inhalation every six hours for wheezing albuterol HFA 90 mcg/act inhaler Indications: URI, acute Inhale 2 puffs every 6 (six) hours if needed for shortness of breath or wheezing 18 g 06/27/2024 Active amoxicillin 875 mg / clavulanate 125 mg oral tablet (2 sources) Penicillin-class Antibacterial Start: 06-27-2024 End: 07-07-2024 take 1 tablet by mouth in the morning amoxicillin-clav ulanate (Augmentin) 875-125 MG tablet Indications: Right acute otitis media Take 1 tablet (875 mg) by mouth in the morning and 1 tablet (875 mg) before bedtime. Do all this for 10 days. Take with food. 20 tablet 06/27/2024 07/07/2024 Active cefdinir 300 mg oral capsule (20 sources) Cephalosporin Antibacterial Start: 06-27-2024 End: 07-07-2024 take 1 capsule by mouth in the morning cefdinir (Omnicef) 300 MG capsule Indications: Right acute otitis media Take 1 capsule (300 mg) by mouth in the morning and 1 capsule (300 mg) before bedtime. Do all this for 10 days. 20 capsule 06/27/2024 07/07/2024 Active Start: 03-25-2021 take 1 capsule by [facility] twice daily Cefdinir 300 MG Oral Capsule TAKE 1 CAPSULE TWICE DAILY UNTIL GONE. Quantity: 20 Refills: 0 Ordered: 25-Mar-2021 Sania ZARAGOZA, Marino Kumar Start : 25-Mar-2021 Active {84 (Ethinyl Estradiol 0.03 MG / Levonorgestrel 0.15 MG Oral Tablet) / 7 (Inert Ingredients 1 MG Oral Tablet) } Pack [Jolessa Day] (20 sources) Progestin, Estrogen, Progestin-containing Intrauterine Device Start: 02-26-2024 take 1 tablet by mouth once daily Jolessa oral tablet TAKE 1 TABLET BY MOUTH DAILY at the same time Start Date: 02/26/24 Status: Ordered Start: 02-05-2024 take 1 tablet by [facility] once daily Jolessa 0.15-0.03 MG tablet Indications: Uses control TAKE 1 TABLET BY MOUTH DAILY at the same time 91 tablet 3 02/05/2024 Active Start: 04-24-2023 levonorgestrel -ethinyl estradiol (Jolessa) 0.15-0.03 MG tablet Indications: Uses control Take 1 tablet by mouth 1 (one) time each day at the same time. 28 tablet 0 04/24/2023 Active fluocinonide 0.5 mg/ml topical solution (20 sources) Corticosteroid Start: 06-08-2023 fluocinonide (Lidex) 0.05 % external solution Apply 1 application topically if needed 06/08/2023 Active FLUoxetine 20 mg oral capsule (20 sources) Serotonin Reuptake Inhibitor Start: 07-06-2023 take 2 capsules by mouth once daily FLUoxetine (PROzac) 20 MG capsule Indications: Anxiety TAKE 2 CAPSULES BY MOUTH DAILY 60 capsule 1 07/06/2023 Active Start: 05-10-2018 take 2 capsules by [facility] once daily FLUoxetine HCl - 20 MG Oral Capsule 2 po daily Quantity: 180 Refills: 1 Ordered: 18-Jul-2022 John Mane Start : 10-May-2018 Active Start: 05-10-2018 take 1 capsule by mo [facility] once daily FLUoxetine HCl - 10 MG Oral Capsule 1 po daily (take with 20 mg) Quantity: 30 Refills: 0 Ordered: 19-Nov-2021 John Mane Start : 10-May-2018 Active Start: 05-10-2018 take 1 capsule by mo [facility] once daily FLUoxetine HCl - 20 MG Oral Capsule 1 po daily (take wtih 10 mg) Quantity: 30 Refills: 0 Ordered: 19-Nov-2021 John Mane Start : 10-May-2018 Active glycopyrrolate 1 mg oral tablet (20 sources) Start: 07-18-2023 End: 01-04-2025 take 2 tablets by mouth once daily glycopyrrolate 1 mg oral tablet TAKE 2 TABLETS BY MOUTH DAILY Start Date: 02/26/24 Status: Ordered take 1 tablet by mouth once jarett y glycopyrrolate (Robinul) 1 MG tablet Take 1 mg by mouth 1 (one) time each day Active 24 hr guanFACINE 4 mg extended release oral tablet (20 sources) Central alpha-2 Adrenergic Agonist Start: 03-06-2023 take 1 tablet by mouth every twenty-four hours in the morning guanFACINE (Intuniv) 4 mg 24 hr tablet Take 4 mg by mouth in the morning. 0 03/06/2023 Active Start: 02-27-2017 take 1 tablet by kashif th every twenty-four hours in the morning guanFACINE HCl ER 4 MG Oral Tablet Extended Release 24 Hour 1 po in AM Quantity: 90 Refills: 0 Ordered: 18-Jul-2022 John Mane Start : 27-Feb-2017 Active LORazepam 0.5 mg oral tablet (20 sources) Benzodiazepine Start: 09-14-2024 End: 01-04-2025 take 1 tablet by mouth every six hours as needed for anxiety and anxiety and anxiety LORazepam (Ativan) 0.5 MG tablet Indications: Anxiety Take 1 tablet (0.5 mg) by mouth every 6 (six) hours if needed for anxiety 15 tablet 01/04/2025 Active Start: 02-26-2024 take 1 tablet by kashif th three times daily as needed for anxiety LORazepam 0.5 mg Tab 0.5 mg = 1 tab(s), Oral, TID, PRN for anxiety, Refills(s) 0 Start Date: 02/26/24 Status: Ordered Start: 02-04-2024 End: 08-04-2024 take 1 tablet by mouth every six hours as needed for anxiety and anxiety and anxiety LORazepam (Ativan) 0.5 MG tablet Indications: Anxiety Take 1 tablet (0.5 mg) by mouth every 6 (six) hours if needed for anxiety 15 tablet 08/04/2024 Active Start: 08-13-2023 take 1 tablet by [...] anixety Quantity: 30 Refills: 0 Ordered: 18-Jul-2022 Becky NEWSPAPER EDITOR-LITHOPLATE MAKER, John Start : 13-Dec-2021 Active Start: 12-13-2021 LORazepam 0.5 MG Oral Tablet 1/2 - 1 po BID prn anixety Quantity: 30 Refills: 0 Ordered: 12-Feb-2022 Becky NEWSPAPER EDITOR-LITHOPLATE MAKER, John Start : 13-Dec-2021 Active End: 08-13-2023 take 1 tablet by mouth every six hours as needed for anxiety LORazepam (Ativan) 0.5 MG tablet Take 0.5 mg by mouth every 6 (six) hours if needed for anxiety. 0 08/13/2023 Discontinued (Reorder) methylPREDNISolone (4 sources) Corticosteroid Start: 06-27-2024 End: 07-04-2024 methylPREDNISolone (Medrol Dospak) 4 MG tablets Indications: URI, acute Take with food. Follow schedule on package instructions 21 tablet 06/27/2024 07/04/2024 Active 24 hr mirabegron 50 mg extended release oral tablet (20 sources) beta3-Adrenergic Agonist Start: 03-24-2024 take 1 tablet by mouth once daily, then take 1 tablet by mouth every twenty-fou r hours mirabegron ER (Myrbetriq) 50 MG 24 hr tablet Take 50 mg by mouth Daily 03/24/2024 Active mometasone furoate 0.001 mg/mg topical ointment (20 sources) Corticosteroid Start: 06-08-2023 mometasone (Elocon) 0.1 % ointment Apply 1 application topically Daily apply to dry spots on face and neck DAILY ON THURSDAY THROUGH THURSDAY OF EACH WEEK for 3 (THREE) weeks, then use NEEDED for flares 06/08/2023 Active mupirocin 0.02 mg/mg topical ointment (2 sources) RNA Synthetase Inhibitor Antibacterial Start: 04-14-2024 End: 04-24-2024 mupirocin (Bactroban) 2 % ointment Indications: Open wound of chest wall, unspecified laterality, initial encounter Apply topically 3 (three) times a day for 10 days 22 g 04/14/2024 04/24/2024 Active PARoxetine hydrochloride 40 mg oral tablet (20 sources) Serotonin Reuptake Inhibitor Start: 09-14-2024 End: 01-04-2025 take 1 tablet by mouth in the morning PARoxetine (Paxil) 10 MG tablet Indications: Anxiety Take 1 tablet (10 mg) by mouth in the morning. 30 tablet 2 10/26/2024 01/04/2025 Discontinued Start: 02-04-2024 End: 06-15-2025 take 1 tablet by mouth once daily PARoxetine (Paxil) 40 MG tablet Indications: Anxiety Take 1 tablet (40 mg) by mouth Daily 30 tablet 2 01/04/2025 02/03/2025 Active Start: 08-13-2023 End: 08-13-2023 PARoxetine (Paxil) 10 MG tab let Indications: Anxiety 1 tablet for one week then increase to 2 tabs 60 tablet 1 08/13/2023 08/13/2023 Discontinued (Reorder) traZODone hydrochloride 100 mg oral tablet (20 sources) Serotonin Reuptake Inhibitor Start: 01-04-2025 End: 01-04-2026 traZODone (Desyrel) 100 MG tablet Indications: Insomnia, unspecified type Take 1 tablet (100 mg) by mouth as needed at bedtime for sleep 30 tablet 2 01/04/2025 01/04/2026 Active Start: 02-04-2024 End: 06-27-2024 take 1 tablet by mouth at bedtime traZODone (Desyrel) 150 MG tablet Indications: Insomnia, unspecified type Take 1 tablet (150 mg) by mouth at bedtime 30 tablet 2 04/06/2024 06/27/2024 Discontinued (Therapy completed) Start: 02-08-2020 End: 08-13-2023 traZODone HCl - 50 MG Oral T ablet 1 1/2 po at night Quantity: 45 Refills: 5 Ordered: 12-Feb-2021 John Mane Start : 08-Feb-2020 Active 24 hr divalproex sodium 250 mg extended [...] 0.333 mg/ml oral solution (2 sources) Uncompetitive G-ozlimz-A-asparta te Receptor Antagonist, Sigma-1 Agonist, alpha-1 Adrenergic [...] AM Quantity: 30 Refills: 0 Ordered: 04-Sep-2021 Becky FRY John Start : 21-Nov-2020 Active Start: 12-09-2019 take 1 tablet by kashif th in the morning Adzenys XR-ODT 18.8 MG Oral Tablet Extended Release Disintegrating 1 po in AM Quantity: 30 Refills: 0 Becky FRY John Start : 09-Dec-2019 Active Start: 10-17-2019 take 1 tablet by kashif th in the morning Adzenys XR-ODT 18.8 MG Oral Tablet Extended Release Disintegrating 1 po in AM Quantity: 30 Refills: 0 [place]au NEWSPAPER EDITOR-LITHOPLATE MAKER, John Start : 17-Oct-2019 Active Start: 08-12-2019 take 1 tablet by kashif th in the morning Adzenys XR-ODT 18.8 MG Oral Tablet Extended Release Disintegrating 1 po in AM Quantity: 30 Refills: 0 [place] NEWSPAPER EDITOR-LITHOPLATE MAKER, John Start : 12-Aug-2019 Active Start: 03-30-2017 take 1 tablet by kashif th in the morning Adzenys XR-ODT 18.8 MG Oral Tablet Extended Release Disintegrating 1 po in AM Quantity: 30 Refills: 0 [place] NEWSPAPER EDITOR-LITHOPLATE MAKER, John Start : 30-Mar-2017 Active amphetamine aspartate 2.5 mg / amphetamine sulfate 2.5 mg / dextroamphetamine saccharate 2.5 mg / dextroamphetamine sulfate 2.5 mg oral tablet (19 sources) Central Nervous System Stimulant Start: 07-20-2017 take 1 tablet by mouth once daily Amphetamine-Dextroamphetamine 10 MG Oral Tablet TAKE 1 TABLET BY MOUTH EVERY DAY at 1:00pm Quantity: 30 Refills: 0 Ordered: 12-Jul-2021 [place]eau NEWSPAPER EDITOR-LITHOPLATE MAKER, John Start : 20-Jul-2017 Active doxycycline hyclate 100 mg oral capsule (1 source) Tetracycline-cl ass Drug Start: 04-20-2020 take 1 capsule by mouth once daily at mealtime Doxycycline Hyclate 100 MG Oral Capsule TAKE 1 CAPSULE BY MOUTH EVERY DAY WITH FOOD Quantity: 30 Refills: 0 Ordered: 20-Apr-2020 DO Start : 20-Apr-2020 Complete 0.5 ml dulaglutide 1.5 mg/ml auto-injector (19 sources) GLP-1 Receptor Agonist Start: 02-01-2024 End: 06-27-2024 inject 0.75 mg by subcutaneou s injection every week dulaglutide (Trulicity) 0.75 MG/0.5ML solution pen-injector Indications: Prediabetes Inject 0.75 mg under the skin 1 (one) time per week for 28 days 2 mL 1 03/09/2024 06/27/2024 Discontinued (Therapy completed) hydrocortisone 25 mg/ml topical cream (1 source) Corticosteroid Start: 02-07-2020 Hydrocortisone 2.5 % Externa l Cream APPLY to rash on face TWICE DAILY FOR 3 WEEKS then NEEDED Quantity: 28 Refills: 0 Ordered: 19-Apr-2020 DO Start : 07-Feb-2020 Complete ibuprofen 200 mg oral tablet (20 sources) Nonsteroidal Anti-inflammato ry Drug Ibuprofen 200 MG Ora l Tablet Quantity: 0 Refills: 0 Ordered: 22-Mar-2021 DO Active Ibuprofen 100 MG /5ML Oral Suspension Refills: 0 DO Active lisdexamfetamine dimesylate 40 mg oral capsule (20 sources) Central Nervous System Stimulant Start: 09-14-2024 End: 10-26-2024 take 1 capsule by mouth in the morning lisdexamfetamine (Vyvanse) 40 MG capsule Indications: ADHD (attention deficit hyperactivity disorder), combined type (CMS/HCC) Take 1 capsule (40 mg) by mouth in the morning. 30 capsule 09/14/2024 10/26/2024 Discontinued Start: 02-04-2024 End: 07-15-2024 take 1 capsule by mouth in the morning lisdexamfetamine (Vyvanse) 60 MG capsule Indications: ADHD (attention deficit hyperactivity disorder), combined type (CMS/HCC) Take 1 capsule (60 mg) by mouth in the morning. 30 capsule 06/15/2024 Active Start: 08-04-2023 End: 09-03-2023 take 1 capsule [...] am Quantity: 30 Refills: 0 Ordered: 10-Sep-2022 Becky FRY, John Start : 15-May-2022 Active Start: 01-23-2022 take 1 capsule by mo uth in the morning Vyvanse 60 MG Oral Capsule 1 po in AM Quantity: 30 Refills: 0 Ordered: 23-Jan-2022 Becky FRY, John Start : 23-Jan-2022 Active melatonin 10 mg oral tablet (20 sources) Melatonin 10 MG Oral Tablet Quantity: 0 Refills: 0 Ordered: 08-Aug-2020 DO Active ofloxacin 3 mg/ml ophthalmic solution (13 sources) Quinolone Antimicrobial Start: 08-09-19 22 take 1 drop(s) into the eye(s) three [...] Lula Navarro MD Start : 01-Dec-2018 Active triamcinolone acetonide 1 mg/ml topical cream (20 sources) Corticosteroid Start: 12-27-19 20 Triamcinolone Acetonide 0.1 % External Cream APPLY AND RUB IN A THIN FILM TO AFFECTED AREAS TWICE DAILY.(AM AND PM). Quantity: 1 Refills: 1 Ordered: 27-Dec-2019 Marino Lui MD Start : 27-Dec-2019 Active Problems Active Problems Problem Classification Problem Date Documented Date Episodic/Chronic Abdominal pain (7 sources) Pelvic and perineal pain; Translations: [Abdominal pain] Onset: 3 Episodic Allergic reactions (20 sources) [...] [Other specified conditions influencing health status] Episodic Diabetes mellitus without complication (20 sources) Prediabetes; Translations: [Prediabetes] Onset: 4 02-23-2024 Episodic Disorders of lipid metabolism (20 sources) Mixed hypercholesterolemia and hypertriglyceridemia; Translations: [Mixed hyperlipidemia] Onset: 4 02-23-2024 Chronic Disorders usually diagnosed in infancy, childhood, or adolescence (20 sources) Autism spectrum disorder; Translations: [Autistic disorder] Onset: 3 05-26-2023 Chronic Headache; including migraine (20 sources) Migraine; Translations: [Migraine, unspecified, not intractable, without status migrainosus] Onset: 4 02-23-2024 Chronic Menstrual disorders (20 sources) Oligomenorrhea; Translations: [Scanty or infrequent menstruation] Onset: 4 02-23-2024 Chronic Mood disorders (20 sources) Depressive disorder; Translations: [Depression] Onset: 3 Resolved: 3 05-26-2023 Chronic Nutritional deficiencies (20 sources) Vitamin D deficiency; Translations: [Unspecified vitamin D deficiency] Chronic Other connective tissue disease (2 sources) Disorder of muscle; Translations: [Other specified disorders of muscle] Onset: 4 Episodic Other diseases of bladder and urethra (2 sources) Detrusor overactivity; Translations: [Overactive bladder] Onset: 4 Chronic Other diseases of bladder and urethra (20 sources) Overactive bladder; Translations: [Overactive bladder] Onset: 4 03-24-2024 Chronic Other endocrine disorders (20 sources) Polycystic ovary syndrome; Translations: [Polycystic ovarian syndrome] Onset: 4 02-23-2024 Chronic Other injuries and conditions due to [...] nutritional; endocrine; and metabolic disorders (20 sources) Body mass index 40+ - severely obese; Translations: [Body mass index (BMI) 50.0-59.9, adult] Onset: 4 02-23-2024 Chronic Other nutritional; endocrine; and metabolic disorders (20 sources) Metabolic syndrome X; Translations: [Metabolic syndrome] Onset: 4 02-23-2024 Chronic Other nutritional; endocrine; and metabolic disorders (20 sources) Morbid obesity; Translations: [Morbid (severe) obesity due to excess calories] Onset: 4 06-27-2024 Chronic Other nutritional; endocrine; and metabolic disorders [...] rhinitis; Translations: [Allergic rhinitis, cause unspecified] Chronic Residual codes; unclassified (4 sources) Lipids abnormal; Translations: [Lipids abnormal] Episodic Residual codes; unclassified (6 sources) Insomnia; Translations: [Insomnia, unspecified] 04-06-2024 Episodic Screening and history of mental health and substance abuse codes (20 sources) H/O: psychiatric disorder; Translations: [Personal history of other mental disorders] Episodic Skin and subcutaneous tissue infections (20 sources) Abscess; Translations: [Impetigo] Episodic Comment on above: MRSA BUTTOCK 08/2015; Unclassified (3 sources) CONTACT W/AND (SUSP) EXPOS COVID-19; Translations: [CONTACT W/AND (SUSP) EXPOS COVID-19] Onset: Past or Other Problems Problem Classification Problem Date Documented Da te Episodic/Chronic Chronic obstructive pulmonary disease and bronchiectasis (20 sources) Laryngotracheobronc hitis; Translations: [Bronchitis, not specified as acute or chronic] Resolved: 06-03-2017 Episodic Gastrointestinal hemorrhage (20 sources) Rectal hemorrhage; Translations: [Hemorrhage of anus and rectum] Onset: 01-06-2024 02-23-2024 Episodic Genitourinary symptoms and ill-defined conditions (20 sources) Difficulty passing urine; Translations: [Other difficulties with micturition] Onset: 02-04-2024 Episodic Inflammation; infection of eye (except that caused by tuberculosis or sexually transmitteddisease) (20 sources) Acute infectious conjunctivitis; Translations: [Other mucopurulent conjunctivitis] Onset: 10-01-2023 Resolved: 11-05-2023 11-05-2023 Episodic Influenza (20 sources) Influenza due to Influenza A virus; Translations: [Influenza due to other identified influenza virus with other respiratory manifestations] Onset: 10-07-2023 Resolved: 11-05-2023 11-05-2023 Episodic Miscellaneous mental health disorders (20 sources) Emotional upset; Translations: [Other adjustment reactions with predominant disturbance of other emotions] Resolved: 08-19-2018 Chronic Mood disorders (20 sources) Mood disorders Onset: 10-21-2023 Resolved: 09-14-2024 10-21-2023 Mycoses (20 sources) Candidiasis of vagina; Translations: [Candidiasis of vulva and vagina] Resolved: 06-03-2017 Episodic Open wounds of head; neck; and trunk (20 sources) Open wound of chest wall; Translations: [Unspecified open wound of unspecified front wall of thorax without penetration into thoracic cavity, initial encounter] Onset: 04-14-2024 Resolved: 01-11-2025 04-14-2024 Episodic Other connective tissue disease (20 sources) Pelvic floor dysfunction; Translations: [Other specified disorders of muscle] Onset: 06-27-2024 03-24-2024 Episodic Other diseases of bladder and urethra (20 sources) Urethral stricture; Translations: [Unspecified urethral stricture, female] Onset: 05-16-2024 Episodic Other infections; including parasitic (20 sources) [...] Comment on above: Added by Problem Rosa barrett Migration; 2013-06-03; Other lower respiratory disease (20 sources) [...] and sense organs] Resolved: 06-03-2017 Episodic Other nutritional; endocrine; and metabolic disorders (20 sources) Body mass index 30+ - obesity; Translations: [Obesity, unspecified] Onset: 05-26-2023 Resolved: 08-20-2023 05-26-2023 Chronic Other nutritional; endocrine; and metabolic disorders (20 sources) Excessive thirst; Translations: [Polydipsia] Onset: 08-20-2023 02-23-2024 Episodic Other skin disorders (20 sources) Eruption; Translations: [Rash and other nonspecific skin eruption] Resolved: 08-03-2018 Episodic Other skin disorders (20 sources) H/O: skin disorder; Translations: [Personal history of diseases of skin and subcutaneous tissue] Resolved: 12-02-2019 Episodic Other skin disorders (20 sources) Localized eruption of skin; Translations: [Rash and other nonspecific skin eruption] Resolved: 08-03-2018 Episodic Other skin disorders (20 sources) Hyperhidrosis; Translations: [Generalized hyperhidrosis] Onset: 04-05-2024 04-05-2024 Episodic Other skin disorders (5 sources) Localized eruption of skin; Translations: [History of Localized skin eruption] Other upper respiratory infections (20 sources) Acute pharyngitis; Translations: [Acute upper respiratory infection] Onset: 06-27-2024 Resolved: 01-11-2025 06-27-2024 Episodic Comment on above: Added by Problem Rosa nena Migration; 2013-06-03; Otitis media and related conditions (20 sources) Otitis; Translations: [Otitis media] Onset: 06-27-2024 Resolved: 01-11-2025 06-27-2024 Episodic Unclassified (4 sources) History of clinical finding in subject; Translations: [History of sore throat] Unclassified (4 sources) Patient encounter status; Translations: [Encounter for routine child health examination without abnormal findings] Unclassified (1 source) CONTACT W/AND (SUSP) EXPOS COVID-19; Translations: [CONTACT W/AND (SUSP) EXPOS COVID-19] Onset: 03-11-2022 Urinary tract infections (20 sources) Acute cystitis; Translations: [Acute cystitis without hematuria] Onset: 01-26-2024 02-23-2024 Episodic Viral infection (20 sources) Influenza-like illness; Translations: [Influenza with other respiratory manifestations] Resolved: 12-01-2018 Episodic NEGATED: Highlighted row has not occurred!Residual codes; unclassified (20 sources) Disease Episodic Results Test Name Value Interpretation Reference Range Facility Ambulatory Visit Summaryon 0 03-24-2024 Ambulatory Visit Summary Ambulatory Visit Summary SPARKLE PACHECO :2005 Visit Date:03/24/2024 Ambulatory Visit Instructions Your Diagnosis Decreased urine stream Bladder pain Flank pain OAB (overactive bladder) Your Care Team Attending Physician - Inga Hall MD Primary Care Physician - KIM LUTZ CNP This Is Your Medications List Contact prescribing physician if questions or concerns ethinyl estradiol-levonorgestrel (Jolessa oral tablet) glycopyrrolate (glycopyrrolate 1 mg oral tablet) lisdexamfetamine (Vyvanse 60 mg oral capsule) lorazepam (LORazepam 0.5 mg Tab) paroxetine (paroxetine 40 mg Tab) trazodone (traZODONE 150 mg Tab) Procedures Performed Cystourethroscopy with dilation of urethral stricture (03/24/2024). Discharge Vitals Heart Rate (Peripheral) 100 Respiratory Rate 16 Blood Pressure 150/100 Height 162 cm Height 64 in Weight 144 kg Weight 316.8 lb BMI 54.87 What to do next Scheduled Follow-Up Appointments Thursday 2:30 PM EST With: ELISABET Richardson APRN, Lolita Altamirano Where: [facility] [address] [place] [address]- You Need to Schedule the Following Appointments Follow Up with Rafael ZARAGOZA, Inga Lopez, MAHOGANY, URO When: Where: Someone Will Contact You Regarding These Appointments [facility] External Ambulatory Referral, Patient choice/referral by family/friend, Physical Therapy, PFPT with biofeedback at [facility], 03/24/24 11:55:00 EDT, Bladder pain OAB (overactive bladder) Medications What How Much When Instructions Unchanged ethinyl estradiol-levonorgestrel (Jolessa oral tablet) TAKE 1 TABLET BY MOUTH DAILY at the same time Contact prescribing physician if questions or concerns Unchanged glycopyrrolate (glycopyrrolate 1 mg oral tablet) TAKE 2 TABLETS BY MOUTH DAILY Contact prescribing physician if questions or concerns Unchanged lisdexamfetamine (Vyvanse 60 mg oral capsule) TAKE 1 CAPSULE BY MOUTH IN THE MORNING Contact prescribing physician if questions or concerns Unchanged lorazepam (LORazepam 0.5 mg Tab) 1 Tablets By Mouth 3 times a day as needed for for anxiety Contact prescribing physician if questions or concerns Unchanged paroxetine (paroxetine 40 mg Tab) 1 Tablets By Mouth Every day Contact prescribing physician if questions or concerns Unchanged trazodone (traZODONE 150 mg Tab) 1 Tablets By Mouth Once a day (at bedtime) Contact prescribing physician if questions or concerns Medications and Immunizations Administered Given lidocaine Top 2% Gel w/Appl 6 mL, 6 mL, Topical. For: Decreased urine stream, Bladder pain, Flank pain Allergies Bactrim (Nausea, Rash) Problems Ongoing - Any problem that you are currently receiving treatment for. Acute cystitis without hematuria ADHD (attention deficit hyperactivity disorder), combined type Anxiety Asperger syndrome Autism Bladder pain Decreased urine stream Dysuria Flank pain Irregular menses Major depressive disorder, recurrent, moderate Metabolic syndrome Migraine headache Mixed hyperlipidemia Morbid obesity with BMI of 50.0-59.9, adult OAB (overactive bladder) PCOS (polycystic ovarian syndrome) Polydipsia Prediabetes Rectal bleeding Urinary urgency Patient Survey You may receive a survey via text or e-mail asking about your office visit. Please share your experience with us by completing your survey. We appreciate your feedback and thank you for choosing us for your care. Education Materials Dysuria Dysuria is pain or discomfort during urination. The pain or discomfort may be felt in the part of the body that drains urine from the bladder (urethra) or in the surrounding tissue of the genitals. The pain may also be felt in the groin area, lower abdomen, or lower back. You may have to urinate frequently or have the sudden feeling that you have to urinate (urgency). Dysuria can affect anyone, but it is more common in females. Dysuria can be caused by many different things, including: ? Urinary tract infection. ? Kidney stones or bladder stones. ? Certain STIs (sexually transmitted infections), such as chlamydia. ? Dehydration. ? Inflammation of the tissues of the vagina. ? Use of certain medicines. ? Use of certain soaps or scented products that cause irritation. Follow these instructions at home: Medicines ? Take phmi-lun-jhbtxad and prescription medicines only as told by your health care provider. ? If you were prescribed an antibiotic medicine, take it as told by your health care provider. Do not stop taking the antibiotic even if you start to feel better. Eating and drinking ? Drink enough fluid to keep your urine pale yellow. ? Avoid caffeinated beverages, tea, and alcohol. These beverages can irritate the bladder and make dysuria worse. In males, alcohol may irritate the prostate. General instruction (more content not included)... Normal [facility] Urology Office/Clinic Noteon 03-24-2024 Urology Office/Clinic Note Urology Office/Clinic Note Chief Complaint Cysto possible UD HPI Staff AO pt here for cysto, possible UD. Abx taken. Renal/bladder US and BMP 03/09/24 [facility]. Pt/pt's mom informed of results via phone call. History of Present Illness Tests reviewed: reviewed MUNIR, BMP I have reviewed the previous health record information and history for this patient from ELISABET Smith APRN. I have reviewed and verified the staff HPI to be accurate for this encounter. Review of Systems PHQ Score Initial Depression Screen Score: 0 SCORE ROS - Provider Constitutional: denies weight loss, denies hot flashes. Eyes: denies eye problems. Gastrointestinal: denies nausea, denies vomiting. Cardiovascular: denies chest pain or angina. Integumentary: no dryness Musculoskeletal: denies musculoskeletal symptoms. ENMT: denies otolaryngeal symptoms. Respiratory: no shortness of breath. Heme/Lymph: denies easy bleeding tendency, denies easy bruising tendency. Psychiatric: no confusion, no anxiety. Genitourinary: See HPI. Physical Exam Vitals & Measurements HR: 100(Peripheral) RR: 16 BP: 150/100 HT: 64 in HT: 162 cm WT: 144 kg WT: 316.8 lb BMI: 54.87 General Appearance: alert , no acute distress, well nourished, well developed female. Genitourinary: bladder nonpalpable, no flank pain. Procedure Operative Information Anesthesia Type: Local Procedure: Local Cystoscopy with Urethral Dilation Complications: None Surgical risks, benefits, details of the procedure have been explained to the patient. Full informed consent has been obtained. Intraoperative Information Prepped: Patient is brought back to the endoscopy suite. Patient is placed in supine/frog leg position. Patient prepped in the usual fashion with Betadine solution. 2% Xylocaine Jelly is placed per Urethra. After waiting several minutes, the Cystoscope is introduced. The Urethra is: Tight, may be due to pt anxiety The Bladder: Normal, smaller capacity, Trabeculated: None (0) The Ureteral orifices: Show efflux of clear urine The Urethra was dilated to: 16-28 Setswana with sounds. Specimens Removed: None Removal: Cystoscope is removed. The patient tolerated it well. Vaginal examination: Vaginal mucosa: There is no vaginal atrophy. The urethra is tight. There are no masses or lesions. There is mild urethral hypermobility and LONNY is not seen. She is unable to correctly identify her pelvic muscles. Postoperative Information Patient is discharged home with antibiotic coverage. Follow up arranged. Assessment/Plan AO pt. Hx of Asperger syndrome. Pt here with her mother today. 1. Decreased urine stream (R39.198: Other difficulties with micturition) 03/09/24 - Cr 0.56, BUN 7, GFR >60 MUNIR 03/10/24 [facility] - Neg. PVR 5 cc. Pt had IO cysto/UD today wo complications. -Eval sx relief -suspect pelvic floor dysfunction, see #5 Ordered: lidocaine topical, 6 mL, Gel-Sharon, Topical, Once, Stop date 03/24/24 11:47:00 EDT, Routine, Start date 03/24/24 11:47:00 EDT 57371 Cystourethroscop w/ calib and/or dilat of structure/stenosis w/w/o meatotomy / inj 2. Bladder pain (R39.89: Other symptoms and signs involving the genitourinary system) not able to verbalize if bladder/flank discomfort is worse with full bladder or while she is urinating. [1] -See #5 -TImed voids, meds per #4 Ordered: lidocaine topical, 6 mL, Gel-Sharon, Topical, Once, Stop date 03/24/24 11:47:00 EDT, Routine, Start date 03/24/24 11:47:00 EDT 51152 Cystourethroscop w/ calib and/or dilat of structure/stenosis w/w/o meatotomy / inj [facility] External Ambulatory Referral 3. Flank pain (R10.9: Unspecified abdominal pain) See #2. Ordered: lidocaine topical, 6 mL, Gel-Sharon, Topical, Once, Stop date 03/24/24 11:47:00 EDT, Routine, Start date 03/24/24 11:47:00 EDT 80002 Cystourethroscop w/ calib and/or dilat of structure/stenosis w/w/o meatotomy / inj 4. OAB (overactive bladder) (N32.81: Overactive bladder) constantly feels the urge to void, which is why she is going so frequently. However, she has got a very weak urinary stream, barely goes. Is straining and performing voiding maneuvers in order to empty. [2] PVR 5 cc on bladder US Follow up after PFPT with [facility] or sooner if needed. Pt understands and agrees with plan. -Refer for PFPT with biofeedback at [facility]. -Start Myrbetriq 50 mg qd. SEs discussed. Rx sent to [facility]. Pt or mother to call if cost prohibitive. Ordered: [facility] External Ambulatory Referral 5. Pelvic floor dysfunction (M62.89: Other specified disorders of muscle) Unable to kegel. Discussed proper voiding practice, need to relax to urinate. Agrees with referral to PFPT to assist with proper voiding techniques -PFPT with biofeedback at [facility] Orders: mirabegron, 50 mg = 1 tab(s), Oral, Daily, # 30 tab(s), Refills(s) 11, Pharmacy: [id number], 162, cm, 03/24/24 10:57:00 EDT, Height/Length Dosing, 144, kg, 03/24/24 10:57:00 EDT, Weight Dosing Follow-u (more content not included)... Normal [facility] Comment on above: Result Comment: Elec tronically Signed By: Rafael ZARAGOZA, Inga Lopez\.br\Date and Time Signed: 03/24/24 12:18 EDT\.br\Electronically Co-Signed By: Shira Street\.br\Date and Time Co-Signed: 03/24/24 12:00 EDT ALL BASIC METABOLIC PANELon 03-09-2024 Anion gap [Moles/Vol] 14.4 mmol/L [facility] Calcium [Mass/Vol] 9.2 mg/dL 8.5 - 10.1 mg/dL [facility] Chloride [Moles/Vol] 101 mmol/L 98 - 107 mmol/L [facility] CO2 [Moles/Vol] 25.5 mmol/L 21.0 - 32.0 mmol/L [facility] Creatinine [Mass/Vol] 0.56 mg/dL 0.55 - 1.02 mg/dL [facility] GFR/1.73 sq M.predicted CKD-EPI (S/P/Bld) [Vol rate/Area] >60 60 - PINF [facility] Glucose [Mass/Vol] 84 mg/dL 74 - 106 mg/dL [facility] Potassium [Moles/Vol] 3.9 mmol/L 3.5 - 5.1 mmol/L [facility] Sodium [Moles/Vol] 137 mmol/L 136 - 145 mmol/L [facility] EGFR-NON AF CITIZEN OF [place] >60 60 - PINF [facility] Urea nitrogen [Mass/Vol] 7.0 mg/dL 6.4 - 19.3 mg/dL [facility] Urea nitrogen/Creatini ne [Mass ratio] 12.5 mg/mg [facility] URINE CULTURE, ROUTINEon Bacteria identified Cx Nom (U) Urine Culture, Routine [facility] Bacteria identified Cx Nom (U) Mixed urogenital enio [facility] Bacteria identified Cx Nom (U) Less than 10,000 colonies/mL [facility] Bacteria identified Cx Nom (U) Performed at: [facility] Bacteria identified Cx Nom (U) [address], [place] [id number] [facility] Bacteria identified Cx Nom (U) Time Motion Analyst: Jeferson Wayne PhD, Phone: [phone] [facility] CULTURE URINEon 08-06-2022 CULTURE URINE Culture Observations : MODERATE GROWTH OF MIXED GENITAL ENIO. NO POTENTIAL PATHOGENS SEEN. Normal [facility] Comment on above: Performed By: #### U RCX #### [facility] [address] [place] [address] Dr. Chayito Rucker ER URINE PROFILEon 3 Bilirubin Ql (U) Negative Normal NEGATIVE [facility] Comment on above: Performed By: #### C BC #### [facility] [address] [place] [address] Dr. Chayito Rucker Clarity (U) CLEAR Normal CLEAR [facility] Comment on above: Performed By: #### C BC #### [facility] [address] [place] [address] Dr. Chayito Rucker Color (U) LT. YELLOW Normal YELLOW [facility] Comment on above: Performed By: #### C BC #### [facility] [address] [place] [address] Dr. Chayito Rucker ERUDIANA A micrscopic examina tion will be performed if indicated. Normal [facility] Comment on above: Performed By: #### C BC #### [facility] [address] [place] [address] Dr. Chayito Rucker Glucose Ql (U) Negative Normal NEGATIVE [facility] Comment on above: Performed By: #### C BC #### [facility] [address] [place] [address] Dr. Chayito Rucker Hemoglobin Ql (U) Negative Normal NEGATIVE [facility] Comment on above: Performed By: #### C BC #### [facility] [address] [place] [address] Dr. Chayito Rucker Ketones Ql (U) Negative Normal NEGATIVE [facility] Comment on above: Performed By: #### C BC #### [facility] [address] [place] [address] Dr. Chayito Rucker LEUKOCYTES SMALL Abnormal NEGATIVE [facility] Comment on above: Performed By: #### C BC #### [facility] [address] [place] [address] Dr. Chayito Rucker Nitrite Ql (U) Negative Normal NEGATIVE [facility] Comment on above: Performed By: #### C BC #### [facility] [address] [place] [address] Dr. Chayito Rucker pH (U) 7.5 [pH] Normal 5-9 [facility] Comment on above: Performed By: #### C BC #### [facility] [address] [place] [address] Dr. Chayito Rucker SPEC GRAVITY 1.010 Normal 1.005-<=1.0 25 [facility] Comment on above: Performed By: #### C BC #### [facility] [address] [place] [address] Dr. Chayito Rucker UA PROTEIN Negative Normal NEGATIVE/ TRACE [facility] Comment on above: Performed By: #### C BC #### [facility] [address] [place] [address] Dr. Chayito Rucker UR MICRO IND NOT INDICATED Normal [facility] Comment on above: Performed By: #### C BC #### [facility] [address] [place] [address] Dr. Chayito Rucker Urobilinogen Qn (U) 0.2 {Faye'U}/dL Normal 0.2 - 1.0 [facility] Comment on above: Performed By: #### C #### [facility] [address] [address] [address] Chayito Rucker US PELVISon 08-06-2022 US [...] SHERRELL BOWEN Date: 2022-08-06 15:24 Normal [facility]27 SARS-CoV-2 (COVID-19) RNA OMI+probe Ql (Unsp spec) Not detected Normal NOT DETECTED [facility] Comment on above: Result Comment: When [...] for this test is supported by the [place] of Health and Human Service's declaration that [...] used). Performed By: #### C VDTB #### [facility] [address] [place] [address] Dr. Chayito Rucker INSULIN FREE AND TOTALon Free Insulin 24 uU/mL Critically high [facility] Comment on above: Result Comment: Refe rence Range: Pubertal Children and Adults (fasting): 0 - 17 Performed By: #### I NSULT #### [facility] [address] [place] [address] Dr. Chayito Rucker Total Insulin 24 uU/mL Normal [facility] Comment on above: Result Comment: Non- [...] developed and its performance characteristics determined by [employer]. It has not been cleared or approved by the Food and Drug Administration. Performed By: #### I NSULT #### [facility] [address] [place] [address] Dr. Chayito Rucker CBC AUTO DIFFon 11-15-2021 BASO # 0.0 103/ul Normal 0.0-0.1 [facility] Comment on above: Performed By: #### C BC #### [facility] [address] [place] [address] Dr. Chayito Rucker Basophils/100 WBC (Bld) 0.3 % Normal 0.2-2.0 [facility] Comment on above: Performed By: #### C BC #### [facility] [address] [place] [address] Dr. Chayito Rucker EO # 0.1 103/ul Normal 0.0-0.7 [facility] Comment on above: Performed By: #### C BC #### [facility] [address] [place] [address] Dr. Chayito Rucker Eosinophils/100 WBC (Bld) 1.5 % Normal 0.9-7.0 [facility] Comment on above: Performed By: #### C BC #### [facility] [address] [place] [address] Dr. Chayito Rucker Erythrocyte distribution width (RBC) [Ratio] 12.8 % Normal 11.0-15.0 [facility] Comment on above: Performed By: #### C BC #### [facility] [address] [place] [address] Dr. Chayito Rucker Hematocrit (Bld) [Volume fraction] 39.8 % Normal 36.0-48.0 [facility] Comment on above: Performed By: #### C BC #### [facility] [address] [place] [address] Dr. Chayito Rucker Hemoglobin (Bld) [Mass/Vol] 12.6 g/dL Normal 12.0-16.0 [facility] Comment on above: Performed By: #### C BC #### [facility] [address] [place] [address] Dr. Chayito Rucker IG # 0.03 10e3/ul Normal 0.00-0.03 [facility] Comment on above: Performed By: #### C BC #### [facility] [address] [place] [address] Dr. Chayito Rucker IG % 0.3 % Normal 0.0-0.5 [facility] Comment on above: Performed By: #### C BC #### [facility] [address] [place] [address] Dr. Chayito Rucker LYMPH # 3.7 103/ul Normal 1.2-3.8 [facility] Comment on above: Performed By: #### C BC #### [facility] [address] [place] [address] Dr. Chayito Rucker Lymphocytes/100 WBC (Bld) 40.6 % Normal 20.5-60.0 [facility] Comment on above: Performed By: #### C BC #### [facility] [address] [place] [address] Dr. Chayito Rucker MANUAL DIFF REQ NO Normal [facility] Comment on above: Performed By: #### C BC #### [facility] [address] [place] [address] Dr. Chayito Rucker MCH (RBC) [Entitic mass] 30.7 pg Normal 26.7-34.0 [facility] Comment on above: Performed By: #### C BC #### [facility] [address] [place] [address] Dr. Chayito Rucker MCHC (RBC) [Mass/Vol] 31.7 g/dL Normal 29.9-35.2 [facility] Comment on above: Performed By: #### C BC #### [facility] [address] [place] [address] Dr. Chayito Rucker MCV (RBC) [Entitic vol] 97.1 fL Critically high 79.1-95.6 [facility] Comment on above: Performed By: #### C BC #### [facility] [address] [place] [address] Dr. Chayito Rucker MONO # 0.5 103/ul Normal 0.3-0.8 [facility] Comment on above: Performed By: #### C BC #### [facility] [address] [place] [address] Dr. Chayito Rucker Monocytes/100 WBC (Bld) 5.7 % Normal 1.7-12.0 [facility] Comment on above: Performed By: #### C BC #### [facility] [address] [place] [address] Dr. Chayito Rucker NEUT # 4.7 103/ul Normal 1.4-6.5 [facility] Comment on above: Performed By: #### C BC #### [facility] [address] [place] [address] Dr. Chayito Rucker Neutrophils/100 WBC (Bld) 51.6 % Normal 43.0-75.0 [facility] Comment on above: Performed By: #### C BC #### [facility] [address] [address] [address] Chayito Rucker Platelet mean volume (Bld) [Entitic vol] 11.7 fL Normal 9.5-13.5 [facility] Comment on above: Performed By: #### C BC #### [facility] [address] [place] [address] Dr. Chayito Rucker PLT 211 103/ul Normal 150-450 [facility] Comment on above: Performed By: #### C BC #### [facility] [address] [place] [address] Dr. Chayito Rucker RBC 4.10 106/ul Normal 3.40-5.30 [facility] Comment on above: Performed By: #### C BC #### [facility] [address] [place] [address] Dr. Chayito Rucker WBC 9.1 103/ul Normal 4.0-11.0 [facility] Comment on above: Performed By: #### C BC #### [facility] [address] [place] [address] Dr. Chayito Rucker FREE T4on 11-15-2021 Free T4 [Mass/Vol] 0.94 ng/dL Normal 0.78-1.34 [facility] Comment on above: Performed By: #### F T4 #### [facility] [address] [place] [address] Dr. Chayito Rucker GLYCOHEMOGLOBIN A1Con 2021 ADA RECOMMENDATION SEE BELOW Normal [facility] Comment on above: Result Comment: ADA RECOMMENDED LIMIT 4.0 - 6.0 ADA THERAPEUTIC TARGET < 7.0 ACTION SUGGESTED > 7.0 Performed By: #### A 1C #### [facility] [address] [place] [address] Dr. Chayito Rucker Glucose [Mass/Vol] 108 mg/dL Normal [facility] Comment on above: Performed By: #### A 1C #### [facility] [address] [place] [address] Dr. Chayito Rucker HbA1c (Bld) [Mass fraction] 5.4 % Normal 4.5-6.2 [facility] Comment on above: Performed By: #### A 1C #### [facility] [address] [address] [address] Chayito Rucker LIPID PROFILEon 11-15-2021 CHOL-HDL RATIO NORM SEE BELOW Normal [facility] Comment on above: Result Comment: 3.3 - 4.4 LOW RISK 4.4 - 7.1 AVERAGE RISK 7.1 - 11.0 MODERATE RISK >11.0 HIGH RISK Performed By: #### L IPID, TSH, CMP #### [facility] [address] [address] [address] Chayito Rucker Cholesterol [Mass/Vol] 199 mg/dL Normal 104-227 [facility] Comment on above: Performed By: #### L IPID, TSH, CMP #### [facility] [address] [place] [address] Dr. Chayito Rucker Cholesterol in HDL [Mass/Vol] 40 mg/dL Normal 29-69 [facility] Comment on above: Performed By: #### L IPID, TSH, CMP #### [facility] [address] [address] [address] Chayito Rucker Cholesterol in LDL [Mass/Vol] 121.8 mg/dL Normal 46.0-140.0 [facility] Comment on above: Performed By: #### L IPID, TSH, CMP #### [facility] [address] [place] [address] Dr. Chayito Rucker Cholesterol.total /Cholesterol in HDL [Mass ratio] 5.0 {ratio} Normal [facility] Comment on above: Performed By: #### L IPID, TSH, CMP #### [facility] [address] [place] [address] Dr. Chayito Rucker HDL NORMAL > or = 60 mg/dl - LO W CARDIOVASCULAR RISK <40 mg/dl - HIGH CARDIOVASCULAR RISK Normal [facility] Comment on above: Performed By: #### L IPID, TSH, CMP #### [facility] [address] [place] [address] Dr. Chayito Rucker LDL CALC NORMAL SEE BELOW Normal [facility] Comment on above: Result Comment: <100 mg/dl OPTIMAL 100 - 129 mg/dl NEAR OR ABOVE OPTIMAL 130 - 159 mg/dl BORDERLINE HIGH 160 - 189 mg/dl HIGH >190 mg/dl VERY HIGH Performed By: #### L IPID, TSH, CMP #### [facility] [address] [place] [address] Dr. Chayito Rucker Triglyceride [Mass/Vol] 186 mg/dL Normal 53-208 [facility] Comment on above: Performed By: #### L IPID, TSH, CMP #### [facility] [facility] [address] [place] [address] Dr. Chayito Rucker VLDL CALC 37.2 mg/dL Normal [facility] Comment on above: Performed By: #### L IPID, TSH, CMP #### [facility] [address] [place] [address] Dr. Chayito Rucker PROF 14(COMP METB)on 022 Albumin [Mass/Vol] 3.5 g/dL Normal 3.4-5.0 [facility] Comment on above: Performed By: #### L IPID, TSH, CMP #### [facility] [address] [place] [address] Dr. Chayito Rucker Albumin/Globulin [Mass ratio] 0.9 {ratio} Normal [facility] Comment on above: Performed By: #### L IPID, TSH, CMP #### [facility] [address] [place] [address] Dr. Chayito Rucker ALP [Catalytic activity/Vol] 74 U/L Normal 65-260 [facility] Comment on above: Performed By: #### L IPID, TSH, CMP #### [facility] [address] [place] [address] Dr. Chayito Rucker ALT [Catalytic activity/Vol] 49 U/L Normal 14-59 [facility] Comment on above: Performed By: #### L IPID, TSH, CMP #### [facility] [address] [place] [address] Dr. Chayito Rucker Anion gap [Moles/Vol] 15.2 mmol/L Normal [facility] Comment on above: Performed By: #### L IPID, TSH, CMP #### [facility] [address] [place] [address] Dr. Chayito Rucker AST [Catalytic activity/Vol] 30 U/L Normal 15-37 [facility] Comment on above: Performed By: #### L IPID, TSH, CMP #### [facility] [address] [place] [address] Dr. Chayito Rucker Bilirubin [Mass/Vol] 0.4 mg/dL Normal 0.2-1.0 [facility] Comment on above: Performed By: #### L IPID, TSH, CMP #### [facility] [address] [place] [address] Dr. Chayito Rucker Calcium [Mass/Vol] 8.6 mg/dL Normal 8.5-10.1 [facility] Comment on above: Performed By: #### L IPID, TSH, CMP #### [facility] [address] [place] [address] Dr. Chayito Rucker Chloride [Moles/Vol] 102 mmol/L Normal 98-107 [facility] Comment on above: Performed By: #### L IPID, TSH, CMP #### [facility] [address] [place] [address] Dr. Chayito Rucker CO2 [Moles/Vol] 23.8 mmol/L Normal 21.0-32.0 [facility] Comment on above: Performed By: #### L IPID, TSH, CMP #### [facility] [address] [place] [address] Dr. Chayito Rucker Creatinine [Mass/Vol] 0.58 mg/dL Normal 0.55-1.02 [facility] Comment on above: Performed By: #### L IPID, TSH, CMP #### [facility] [address] [place] [address] Dr. Chayito Rucker Globulin (S) [Mass/Vol] 3.8 g/dL Normal [facility] Comment on above: Performed By: #### L IPID, TSH, CMP #### [facility] [address] [place] [address] Dr. Chayito Rucker Glucose [Mass/Vol] 96 mg/dL Normal 74-106 [facility] Comment on above: Performed By: #### L IPID, TSH, CMP #### [facility] [address] [place] [address] Dr. Chayito Rucker Potassium [Moles/Vol] 4.0 mmol/L Normal 3.5-5.1 [facility] Comment on above: Performed By: #### L IPID, TSH, CMP #### [facility] [address] [place] [address] Dr. Chayito Rucker Protein [Mass/Vol] 7.3 g/dL Normal 6.4-8.2 [facility] Comment on above: Performed By: #### L IPID, TSH, CMP #### [facility] [address] [place] [address] Dr. Chayito Rucker Sodium [Moles/Vol] 137 mmol/L Normal 136-145 [facility] Comment on above: Performed By: #### L IPID, TSH, CMP #### [facility] [address] [place] [address] Dr. Chayito Rucker Urea nitrogen [Mass/Vol] 13.0 mg/dL Normal 6.4-19.3 [facility] Comment on above: Performed By: #### L IPID, TSH, CMP #### [facility] [address] [place] [address] Dr. Chayito Rucker Urea nitrogen/Creatini ne [Mass ratio] 22.4 mg/mg Normal [facility] Comment on above: Performed By: #### L IPID, TSH, CMP #### [facility] [address] [place] [address] Dr. Chayito Rucker TSHon 11-15-2021 TSH 2.064 uIU/mL Normal 0.516-4.130 [facility] Comment on above: Performed By: #### L IPID, TSH, CMP #### [facility] [address] [place] [address] Dr. Chayito Rucker TSH RANGE SEE BELOW Normal [facility] Comment on above: Result Comment: <0.3 4 UIU/ml HYPERTHYROID 0.34-5.60 UIU/ml EUTHYROID >5.60 UIU/ml HYPOTHYROID Performed By: #### L IPID, TSH, CMP #### [facility] [address] [place] [address] Dr. Chayito Rucker Chart Updateon 07-12-2021 Chart [...] both eyes; ERIC = N; Sent To: [facility] Attention deficit hyperactivity disorder (ADHD), combined type Renew: Adzenys XR-ODT 18.8 MG Oral Tablet Extended Release Disintegrating; 1 po in AM Rx By: John Pena; Dispense: 30 Days ; #:30 Tablet; Refill: 0;For: Attention deficit hyperactivity disorder (ADHD), combined type; ERIC = N; Verified Transmission to [facility]; Last Updated By: [facility] [employer]; 07/12/2021 1:50:49 PM Renew: Adzenys XR-ODT 18.8 MG Oral Tablet Extended Release Disintegrating; 1 po in AM Rx By: John Pena; Dispense: 30 Days ; #:30 Tablet; Refill: 0;For: Attention deficit hyperactivity disorder (ADHD), combined type; ERIC = N; Verified Transmission to [facility]; Last Updated By: [employer]; 07/13/2021 7:45:02 AM Renew: Adzenys XR-ODT 18.8 MG Oral Tablet Extended Release Disintegrating; 1 po in AM Rx By: John Pena; Dispense: 30 Days ; #:30 Tablet; Refill: 0;For: Attention deficit hyperactivity disorder (ADHD), combined type; ERCI = N; Verified Transmission to [facility]; Last Updated By: [employer]; 07/13/2021 7:45:44 AM Renew: Amphetamine-Dextroamphetam ine 10 MG Oral Tablet; TAKE 1 TABLET BY MOUTH EVERY DAY at 1:00pm Rx By: John Pena; Dispense: 30 Days ; #:30 Tablet; Refill: 0;For: Attention deficit hyperactivity disorder (ADHD), combined type; ERIC = N; Verified Transmission to [facility]; Last Updated By: [employer]; 07/12/2021 1:50:34 PM Chart Update phone with mother. Misha woke up this am with crusty, itchy and red eyes. I will call [facility] Signatures Electronically signed by : Lula Navarro MD; Aug 09 2021 8:43AM EST (Author) Normal [facility] 06-14on 0 03-25-2021 Pediatric Medicine [...] acute; ERIC = N; Verified Transmission to [facility]; Last Updated By: [employer]; 03/25/2021 4:43:04 PM Patient Discussion/Summary covid antigen test faxed to [facility]. stay at home until resulted and or [...] Requires Verification; Done: 22Mar2021 10:00AM Performed:In Office; Due:[id number];Ordered; For:Acute pharyngitis; Ordered By:René Treviño; Patient Discussion/Summary [...] reflux disease (more content not included)... Normal [employer] [facility] 08-17-2019 S. pyogenes Ag Ql (Throat) Negative [facility] Work Phone: CNOVon 03-10-2018 CNOV Office Visit (PSYCWH) BRITANY PACHECO ([id number]) 04 FDate Time Provider Department03/10/18 9:30 AM JEFFERY DELAROSA PSYC During your visit today, we recorded the following information about you:Jeffery Delarosa PsyD 03/10/2018 12:56 PM SignedPSYCHOLOGICAL EVALUATION/CONSULTATIONPAT IENT NAME: Sparkle BakerDorinda Velasquez Mary AliceMEDICAL RECORD #: [id number] OF : 2005CURRENT AGE: 12 years 4 monthsAPPOINTMENT DATE(S): 03/10/2018REFERRED BY: John Pena, CNSREPORT DATE: pendingSERVICES PROVIDEDPsychological diagnostic evaluation (65924) Time: 10.00 - 11.59 amInteractive Complexity (09488: patient is minor/parent involvement required,significant communicative/language barrierPsychological testing (64267) x 1 hour (administration, scoring,interpretation, report) Test [...] history: bipolar disorderBrief History of Current Concerns? Casing Blower diagnosed ADHD around 1st grade with severe [...] especially in languagearts (always hard for her)? [place] friendly and self-disclosing (doesn't understand when certain [...] darleen to himSchool History? Home school district: [employer]? Previous school information: preschool in an integrated classroom as typicalpeer (did well); extremely friendly as toddler/preschooler, would talk withanyone and tell them everything (even understood concept of stranger danger );school always been hard for her; struggled since elementary school (teased);moved to [place] in 5th grade somewhat better; downhill since [...] basic interactive/reciprocal social greetings (will say darleen sanchese many times to same purpose); misses the [...] about beingcorrected; parents call it being the [facility] police ? Sensitivities: overly sensitive to things [...] about specific ideas of interest (vacation in [facility])? Self-Care: needs reminders to change underwear after [...] request MFE, Parents maywant to contact their [facility] of Developmental Disabilities regardingpossible supports and [...] FOR* Status:Closed by AUSTEN DELAROSA on 03/10/18 [facility] PROGRESSon 03-10-2018 Protein mass conc HNO ID: [id number] thor: Jeffery Johnson: (none)Author Type: PsychologistType: Progress NotesFiled: 03/10/2018 12:56 PMNote Text:PSYCHOLOGICAL EVALUATION/CONSULTATIONPAT IENT NAME: Sparkle Velasquez (Sammy) [facility] RECORD #: [id number] OF : 2005CURRENT AGE: 12 years 4 monthsAPPOINTMENT DATE(S): 03/10/2018REFERRED BY: John Pena, CNSREPORT DATE: pendingSERVICES PROVIDEDPsychological diagnostic evaluation (39722) Time: 10.00 - 11.59 amInteractive Complexity (02820: patient is minor/parent involvementrequired, significant communicative/language barrierPsychological testing (57674) x 1 hour (administration, scoring,interpretation, report) Test [...] history: bipolar disorderBrief History of Current Concerns? Casing Blower diagnosed ADHD around 1st grade with severe [...] especiallyin language arts (always hard for her)? [place] friendly and self-disclosing (doesn't understand when certaintopics [...] hello to himSchool History? [place] school [place] [employer]? Previous school information: preschool in an integrated classroom astypical peer (did well); extremely friendly as toddler/preschooler, wouldtalk with anyone and tell them everything (even understood concept of stranger danger ); school always been hard for her; [facility] (teased); moved to [place] in 5th grade somewhat better;downhill since middle [...] basic interactive/reciprocal socialgreetings (will say hello or goodbye many times to same purpose); missesthe rules [...] being corrected; parents call it being the [facility] police ? Sensitivities: overly sensitive to things [...] things is humorous; repeatedly has to tell peopledarleen or geo; repeatedly talks about specific ideas of interest(vacation in [place])? Self-Care: needs reminders to change underwear after [...] request MFE, Parentsmay want to contact their [facility] of Developmental Disabilitiesregarding possible supports and [...] aftercompletion of evaluation.Jeffery Delarosa Psy.D., ABPPPediatric Psychologist Normal [facility] Vital Signs Date Time Vital Sign Value Performing Clinician Facility 01-04-2025 15:09040 Body mass index (BMI) [Ratio] 61.76 kg/m2 Rodriguez Weaver NEWSPAPER EDITOR-LITHOPLATE MAKER Work Phone: [facility] 01-04-2025 15:09040 Body weight 161.93 kg Rodriguez Weaver NEWSPAPER EDITOR-LITHOPLATE MAKER Work Phone: [facility] 01-04-2025 15:09040 Diastolic blood pressure 82 mm[Hg] Rodriguez Weaver NEWSPAPER EDITOR-LITHOPLATE MAKER Work Phone: [facility] 01-04-2025 15:09-040 Heart rate 104 /min Rodriguez Danielle-Nossek NEWSPAPER EDITOR-LITHOPLATE MAKER Work Phone: [facility] 01-04-2025 15:09-0400 Systolic blood pressure 118 mm[Hg] Rodriguez Danielle-Nossek NEWSPAPER EDITOR-LITHOPLATE MAKER Work Phone: [facility] 10-26-2024 15:20-0400 Body mass index (BMI) [Ratio] 62.8 kg/m2 Rodriguez Danielle-Nossek NEWSPAPER EDITOR-LITHOPLATE MAKER Work Phone: [facility] 10-26-2024 15:20-0400 Body weight 164.66 kg Rodriguez Danielle-Nossek NEWSPAPER EDITOR-LITHOPLATE MAKER Work Phone: [facility] 10-26-2024 15:20-0400 Diastolic blood pressure 74 mm[Hg] Rodriguez Danielle-Nossek NEWSPAPER EDITOR-LITHOPLATE MAKER Work Phone: [facility] 10-26-2024 15:20-0400 Heart rate 107 /min Rodriguez Danielle-Nossek NEWSPAPER EDITOR-LITHOPLATE MAKER Work Phone: [facility] 10-26-2024 15:20-0400 Systolic blood pressure 126 mm[Hg] Rodriguez Danielle-Nossek NEWSPAPER EDITOR-LITHOPLATE MAKER Work Phone: [facility] 06-27-2024 16:08-0500 Body height 161.9 cm Kim Lutz FISCAL MANAGER Work Phone: [facility] 06-27-2024 16:08-0500 Body mass index (BMI) [Ratio] 59.75 kg/m2 Kim Lutz FISCAL MANAGER Work Phone: [facility] 06-27-2024 16:08-0500 Body temperature 98.49 [degF] Kim Lutz FISCAL MANAGER Work Phone: [facility] 06-27-2024 16:08-0500 Body weight 156.67 kg Kim Lutz FISCAL MANAGER Work Phone: [facility] 06-27-2024 16:08-0500 Diastolic blood pressure 84 mm[Hg] Kim Lutz FISCAL MANAGER Work Phone: [facility] 06-27-2024 16:08-0500 Heart rate 103 /min Kim Lutz FISCAL MANAGER Work Phone: [facility] 06-27-2024 16:08-0500 Respiratory rate 19 /min Kim Lutz FISCAL MANAGER Work Phone: [facility] 06-27-2024 16:08-0500 SaO2% (BldA) [Mass fraction] 96 % Kim Lutz FISCAL MANAGER Work Phone: [facility] 06-27-2024 16:08-0500 Systolic blood pressure 122 mm[Hg] Kim Lutz FISCAL MANAGER Work Phone: [facility] 06-15-2024 15:23-0500 Body mass index (BMI) [Ratio] 59.34 kg/m2 Rodriguez Danielle-Nossek NEWSPAPER EDITOR-LITHOPLATE MAKER Work Phone: [facility] 06-15-2024 15:23-0500 Body weight 155.58 kg Rodriguez Danielle-Nossek NEWSPAPER EDITOR-LITHOPLATE MAKER Work Phone: [facility] 06-15-2024 15:23-0500 Diastolic blood pressure 82 mm[Hg] Rodriguez Danielle-Nossek NEWSPAPER EDITOR-LITHOPLATE MAKER Work Phone: [facility] 06-15-2024 15:23-0500 Heart rate 87 /min Rodriguez Danielle-Nossek NEWSPAPER EDITOR-LITHOPLATE MAKER Work Phone: [facility] 06-15-2024 15:23-0500 Systolic blood pressure 122 mm[Hg] Rodriguez Danielle-Nossek NEWSPAPER EDITOR-LITHOPLATE MAKER Work Phone: [facility] 04-06-2024 15:05-0400 Body mass index (BMI) [Ratio] 56.05 kg/m2 Rodriguez Danielle-Nossek NEWSPAPER EDITOR-LITHOPLATE MAKER Work Phone: [facility] 04-06-2024 15:05-0400 Body weight 146.97 kg Rodriguez Danielle-Nossek NEWSPAPER EDITOR-LITHOPLATE MAKER Work Phone: [facility] 04-06-2024 15:05-0400 Diastolic blood pressure 82 mm[Hg] Rodriguez Danielle-Nossek NEWSPAPER EDITOR-LITHOPLATE MAKER Work Phone: [facility] 04-06-2024 15:05-0400 Heart rate 102 /min Rodriguez Danielle-Nossek NEWSPAPER EDITOR-LITHOPLATE MAKER Work Phone: [facility] 04-06-2024 15:05-0400 Systolic blood pressure 110 mm[Hg] Rodriguez Danielle-Nossek NEWSPAPER EDITOR-LITHOPLATE MAKER Work Phone: [facility] 03-24-2024 10:51-0400 Blood Pressure Location Inga Lue [facility] 03-24-2024 10:51-0400 bodymassindex 2.51 kg/m2 Inga Lue [facility] Comment on above: Result Comment: ^~:!ZScore [facility] 03-24-2024 10:51-0400 Diastolic blood pressure 100 mm[Hg] Inga Lue [facility] 03-24-2024 10:51-0400 Heart rate 100 /min Inga Lue [facility] 03-24-2024 10:51-0400 Height/Length Percentile 42.06 1 Inga Lue [facility] Comment on above: Result Comment: ^~:!Percentile [facility] 03-24-2024 10:51-0400 Height/Length Z-Score -0.20 1 Inga Lue [facility] Comment on above: Result Comment: ^~:!ZScore [facility] 03-24-2024 10:51-0400 Respiratory rate 16 /min Inga Lue [facility] 03-24-2024 10:51-0400 Systolic blood pressure 150 mm[Hg] Inga Lue [facility] 03-24-2024 10:51-0400 Weight Percentile 99.82 % Inga Lue [facility] Comment on above: Result Comment: ^~:!Percentile Source -[facility] 03-24-2024 10:51-0400 Weight Z-Score 2.91 1 Inga Lue [facility] Comment on above: Result Comment: ^~:!ZScore [facility] 02-26-2024 13:17-0400 Blood Pressure Location Lolita Orzech [facility] 02-26-2024 13:17-0400 bodymassindex 2.51 kg/m2 Lolita Orzech [facility] Comment on above: Result Comment: ^~:!ZScore [facility] 02-26-2024 13:17-0400 Diastolic blood pressure 78 mm[Hg] Lolita Orzech [facility] 02-26-2024 13:17-0400 Heart rate 80 /min Lolita Orzech [facility] 02-26-2024 13:17-0400 Height/Length Percentile 42.10 1 Lolita Orzech [facility] Comment on above: Result Comment: ^~:!Percentile Source - [place] 02-26-2024 13:17-0400 Height/Length Z-Score -0.20 1 Lolita Orzech [facility] Comment on above: Result Comment: ^~:!ZScore [facility] 02-26-2024 13:17-0400 Systolic blood pressure 120 mm[Hg] Lolita Orzech [facility] 02-26-2024 13:17-0400 Weight Percentile 99.81 % Lolita Orzech [facility] Comment on above: Result Comment: ^~:!Percentile Source [facility] 02-26-2024 13:17-0400 Weight Z-Score 2.90 1 Lolita Orzech [facility] Comment on above: Result Comment: ^~:!ZScore [facility] 08-13-2023 09:47-0500 Body mass index (BMI) [Percentile] Per age and sex 99.99 % Rodriguez Danielle-Nossek NEWSPAPER EDITOR-LITHOPLATE MAKER Work Phone: [facility] 08-13-2023 09:47-0500 Body mass index (BMI) [Ratio] 53.8 kg/m2 Rodriguez Danielle-Nossek NEWSPAPER EDITOR-LITHOPLATE MAKER Work Phone: [facility] 08-13-2023 09:47-0500 Body weight 141.07 kg Rodriguez Danielle-Nossek NEWSPAPER EDITOR-LITHOPLATE MAKER Work Phone: [facility] 08-13-2023 09:47-0500 Diastolic blood pressure 72 mm[Hg] Rodriguez Danielle-Nossek NEWSPAPER EDITOR-LITHOPLATE MAKER Work Phone: [facility] 08-13-2023 09:47-0500 Heart rate 113 /min Rodriguez Danielle-Nossek NEWSPAPER EDITOR-LITHOPLATE MAKER Work Phone: [facility] 08-13-2023 09:47-0500 Systolic blood pressure 98 mm[Hg] Rodriguez Danielle-Nossek NEWSPAPER EDITOR-LITHOPLATE MAKER Work Phone: [facility] 03-25-2021 16:09-0400 Body temperature 98.4 [degF] Lula A Ramon Work Phone: [facility] Work Phone: 03-25-2021 16:09-0400 Body weight 128.54 kg Lula A Ramon Work Phone: [facility] Work Phone: 03-25-2021 16:09-0400 99 1 Lula A Ramon Work Phone: [facility] Work Phone: Comment on above: 2-20_WPerc 03-22-2021 10:04-0400 Body temperature 98.7 [degF] Lula A Ramon Work Phone: [facility] Work Phone: 03-22-2021 10:04-0400 Body weight 128.82 kg Lula A Ramon Work Phone: [facility] Work Phone: 03-22-2021 10:04-0400 99 1 Lula A Ramon Work Phone: [facility] Work Phone: Comment on above: 2-20_WPerc 02-15-2021 11:30-0400 Body height 161.93 cm Lula A Ramon Work Phone: [facility] Work Phone: 02-15-2021 11:30-0400 Body mass index (BMI) [Ratio] 49.18 kg/m2 Lula A Ramon Work Phone: [facility] Work Phone: 02-15-2021 11:30-0400 Body surface area Derived from formula 2.26 m2 Lula A Ramon Work Phone: [facility] Work Phone: 02-15-2021 11:30-0400 Body weight 128.94 kg Lula A Ramon Work Phone: [facility] Work Phone: 02-15-2021 11:30-0400 Diastolic blood pressure 70 mm[Hg] Lula A Ramon Work Phone: [facility] Work Phone: 02-15-2021 11:30-0400 Heart rate 103 /min Lula A Ramon Work Phone: [facility] Work Phone: 02-15-2021 11:30-0400 SaO2% (BldA) [Mass fraction] 98 % Lula A Ramon Work Phone: [facility] Work Phone: 02-15-2021 11:30-0400 Systolic blood pressure 116 mm[Hg] Lula A Ramon Work Phone: [facility] Work Phone: 02-15-2021 11:30-0400 45 1 Lula A Ramon Work Phone: [facility] Work Phone: Comment on above: 2-20_SPerc 02-15-2021 11:30-0400 99 1 Lula A Ramon Work Phone: [facility] Work Phone: Comment on above: 2-20_WPerc BMIPerc 12-02-2019 17:55-0400 BMI (Body Mass Index) 47.03 kg/m2 Lula Ramon [facility] Work Phone: 12-02-2019 17:55-0400 Body Temperature 97.9 [degF] Lula Ramon [facility] Work Phone: 12-02-2019 17:55-0400 Body weight 120.43 kg Lula Ramon [facility] Work Phone: 12-02-2019 17:55-0400 BP Diastolic 62 mm[Hg] Lula Ramon [facility] Work Phone: 12-02-2019 17:55-0400 BP Systolic 118 mm[Hg] Lula Ramon [facility] Work Phone: 12-02-2019 17:55-0400 BSA (Body Surface Area) 2.18 m2 Lula Ramon [facility] Work Phone: 12-02-2019 17:55-0400 Height 160.02 cm Lula Ramon [facility] Work Phone: 12-02-2019 17:55-0400 Pulse (Heart Rate) 121 /min Lula Ramon [facility] Work Phone: 12-02-2019 17:55-0400 Pulse Oximetry 96 % Lula Ramon [facility] Work Phone: 12-02-2019 17:55-0400 38 1 Lula Ramon [facility] Work Phone: Comment on above: 2-20 Stature Percentile 12-02-2019 17:55-0400 99 1 Lula Ramon [facility] Work Phone: Comment on above: 2-20 Weight Percentile BMI Percentile 08-17-2019 15:15-0500 Body Temperature 100.4 [degF] Lula Ramon [facility] Work Phone: 08-17-2019 15:15-0500 Body weight 118.96 kg Lula Ramon [facility] Work Phone: 08-17-2019 15:15-0500 99 1 Lula Navarro [facility] Work Phone: Comment on above: 2-20 Weight Percentile 11-03-2018 18:13-0400 Body Temperature 98.3 [degF] Marino Espino [facility] Work Phone: Comment on above: Method: Temporal 11-03-2018 18:13-0400 Body weight 117.2 kg Marino Espino [facility] Work Phone: 11-03-2018 18:13-0400 Pulse (Heart Rate) 110 /min Marino Espino [facility] Work Phone: 11-03-2018 18:13-0400 Pulse Oximetry 98 % Marino Espino [facility] Work Phone: 11-03-2018 18:13-0400 99 1 Marino Espino [facility] Work Phone: Comment on above: 2-20 Weight Percentile Encounters Encounter Date Encounter Type Care Provider Facility Start: 01-11-2025 End: 01-11-2025 Orders Only Kim Lutz FISCAL MANAGER Work Phone: [facility] Comment on above: Prediabetes (Primary Dx); PCOS (polycystic ovarian syndrome); Morbid obesity ([facility]); Mixed hyperlipidemia ; Metabolic syndrome Start: 01-05-2025 End: 01-05-2025 ambulatory CHELSEA ROSA Not Available Comment on above: Anxiety; ADHD (attention deficit hyperactivity disorder), combined type ; Asperger syndrome (HCC) Start: 01-04-2025 End: 01-04-2025 Office outpatient visit 40 minutes Rodriguez Weaver NEWSPAPER EDITOR-LITHOPLATE MAKER Work Phone: [facility] Comment on above: Anxiety; Insomnia, unspecified type Start: 01-04-2025 End: 01-04-2025 ambulatory RODRIGUEZ WEAVER Not Available Start: 01-04-2025 End: 01-04-2025 Bamboo flowsheet Rodriguez Villegas Danielle-Nossek NEWSPAPER EDITOR-LITHOPLATE MAKER Work Phone: [facility] Start: 01-04-2025 End: 01-04-2025 Bamboo flowsheet Rodriguez Villegas Danielle-Nossek NEWSPAPER EDITOR-LITHOPLATE MAKER Work Phone: [facility] Start: 12-27-2024 End: 12-27-2024 Refill Rodriguez Villegas Danielle-Nossek NEWSPAPER EDITOR-LITHOPLATE MAKER Work Phone: [facility] Comment on above: Anxiety Start: 12-01-2024 End: 12-01-2024 Refill Rodriguez Villegas Danielle-Nossek NEWSPAPER EDITOR-LITHOPLATE MAKER Work Phone: [facility] Comment on above: Anxiety Start: 11-24-2024 End: 11-24-2024 Bamboo flowsheet [facility] Work Phone: [facility] Start: 11-24-2024 End: 11-24-2024 Bamboo flowsheet Chelsea Rosa [facility] Work Phone: [facility] Start: 11-24-2024 End: 11-24-2024 Social Work Chelsea Rosa [facility] Work Phone: [facility] Comment on above: Anxiety; ADHD (attention deficit hyperactivity disorder), combined type (CMS/HCC); Asperger syndrome (CMS/HCC); Major depressive disorder, recurrent episode, moderate (CMS/HCC) Start: 10-27-2024 End: 10-27-2024 Social Work Chelsea Rosa [facility] Work Phone: [facility] Comment on above: Anxiety; ADHD (attention deficit hyperactivity disorder), combined type (CMS/HCC); Asperger syndrome (CMS/HCC); Major depressive disorder, recurrent episode, moderate (CMS/HCC) Start: 10-26-2024 End: 10-26-2024 Office outpatient visit 15 minutes Rodriguez Villegas Danielle-Nossek NEWSPAPER EDITOR-LITHOPLATE MAKER Work Phone: [facility] Comment on above: Anxiety Start: 10-26-2024 End: 10-26-2024 ambulatory RODRIGUEZ M DANIELLE-NOSSEK Not Available Start: 10-26-2024 End: 10-26-2024 Bamboo flowsheet Rodriguez M Danielle-Nossek NEWSPAPER EDITOR-LITHOPLATE MAKER Work Phone: [facility] Start: 10-26-2024 End: 10-26-2024 Bamboo flowsheet Rodriguez M Danielle-Nossek NEWSPAPER EDITOR-LITHOPLATE MAKER Work Phone: [facility] Start: 09-27-2024 End: 09-27-2024 Bamboo flowsheet Chelsea L Rosa [facility] Work Phone: [facility] Start: 09-27-2024 End: 09-27-2024 Bamboo flowsheet Chelsea L Rosa [facility] Work Phone: [facility] Start: 09-27-2024 End: 09-27-2024 Social Work Chelsea L Rosa [facility] Work Phone: [facility] Comment on above: Anxiety; ADHD (attention deficit hyperactivity disorder), combined type ([facility]) Start: 09-14-2024 End: 09-14-2024 ambulatory RODRIGUEZ M DANIELLE-NOSSEK Not Available Start: 09-05-2024 End: 09-05-2024 Refill Rodriguez M Danielle-Nossek NEWSPAPER EDITOR-LITHOPLATE MAKER Work Phone: [facility] Comment on above: Anxiety Start: 08-04-2024 End: 08-04-2024 Refill Rodriguez M Danielle-Nossek NEWSPAPER EDITOR-LITHOPLATE MAKER Work Phone: [facility] Comment on above: Anxiety Start: 06-30-2024 End: 06-30-2024 Bamboo flowsheet Chelsea L Rosa [facility] Work Phone: [facility] Start: 06-30-2024 End: 06-30-2024 Bamboo flowsheet Chelsea L Rosa [facility] Work Phone: [facility] Start: 06-30-2024 End: 06-30-2024 Social Work Chelsea [facility] Work Phone: [facility] Comment on above: Anxiety; ADHD (attention deficit hyperactivity disorder), combined type (CMS/HCC); Insomnia, unspecified type; Asperger syndrome (CMS/HCC); Major depressive disorder, recurrent episode, moderate (CMS/HCC) Start: 06-27-2024 End: 06-27-2024 Office outpatient visit 15 minutes Kim Lutz FISCAL MANAGER Work Phone: [facility] Comment on above: Right acute otitis m edia (Primary Dx); URI, acute; BMI 50.0-59.9, adult (CMS/HCC); Morbid obesity (CMS/HCC) Start: 06-27-2024 End: 06-27-2024 ambulatory KIM NELDA Not Available Start: 06-27-2024 End: 06-27-2024 Bamboo flowsheet Kimeugene Lutz FISCAL MANAGER Work Phone: [facility] Start: 06-27-2024 End: 06-27-2024 Bamboo flowsheet Kim Nelda FISCAL MANAGER Work Phone: [facility] Start: 06-15-2024 End: 06-15-2024 Office outpatient visit 25 minutes Rodriguez M Danielle-Nossek NEWSPAPER EDITOR-LITHOPLATE MAKER Work Phone: [facility] Comment on above: Anxiety; ADHD (attention deficit hyperactivity disorder), combined type (CMS/HCC) Start: 06-15-2024 End: 06-15-2024 ambulatory RODRIGUEZ M DANIELLE-NOSSEK Not Available Start: 06-15-2024 End: 06-15-2024 Bamboo flowsheet Rodriguez M Danielle-Nossek NEWSPAPER EDITOR-LITHOPLATE MAKER Work Phone: [facility] Start: 06-15-2024 End: 06-15-2024 Bamboo flowsheet Rodriguez M Danielle-Nossek NEWSPAPER EDITOR-LITHOPLATE MAKER Work Phone: [facility] Start: 06-07-2024 End: 06-07-2024 Refill Rodriguez Villegas Danielle-Nossek NEWSPAPER EDITOR-LITHOPLATE MAKER Work Phone: [facility] Comment on above: ADHD (attention defi cit hyperactivity disorder), combined type (CMS/HCC) Start: 05-20-2024 End: 05-20-2024 ambulatory Lolita X Orzemaggy Facility:[facility] Start: 05-20-2024 End: 05-20-2024 Patient encounter procedure Lolita X Orzech [facility] Start: 04-14-2024 End: 04-14-2024 Refill Kim Lutz FISCAL MANAGER Work Phone: [facility] Comment on above: Open wound of chest wall, unspecified laterality, initial encounter (Primary Dx) Start: 04-07-2024 End: 04-07-2024 Social Work Chelsea Rosa [facility] Work Phone: [facility] Comment on above: ADHD (attention defi cit hyperactivity disorder), combined type (CMS/HCC); Anxiety; Insomnia, unspecified type; Asperger syndrome (CMS/HCC); Major depressive disorder, recurrent episode, moderate (CMS/HCC) Start: 04-06-2024 End: 04-06-2024 ambulatory RODRIGUEZ Villegas DANIELLE-NOSSEK Not Available Start: 04-06-2024 End: 04-06-2024 Office outpatient visit 40 minutes Rodriguez Villegas Danielle-Nossek NEWSPAPER EDITOR-LITHOPLATE MAKER Work Phone: [facility] Comment on above: ADHD (attention defi cit hyperactivity disorder), combined type (CMS/HCC); Anxiety; Insomnia, unspecified type Start: 04-06-2024 End: 04-06-2024 Bamboo flowsheet Rodriguez Villegas Danielle-Nossek NEWSPAPER EDITOR-LITHOPLATE MAKER Work Phone: [facility] Start: 04-06-2024 End: 04-06-2024 Bamboo flowsheet Rodriguez Weaver NEWSPAPER EDITOR-LITHOPLATE MAKER Work Phone: [facility] Start: 04-05-2024 End: 04-05-2024 Refill Kim Lutz FISCAL MANAGER Work Phone: [facility] Comment on above: Hyperhidrosis (Prima ry Dx) Start: 03-24-2024 End: 03-24-2024 ambulatory Inga Hall Facility:[facility] Start: 03-24-2024 End: 03-24-2024 Patient encounter procedure Inga Hall [facility] Start: 03-10-2024 End: 03-10-2024 Social Work Chelsea Rosa [facility] Work Phone: [facility] Comment on above: Anxiety; ADHD (attention deficit hyperactivity disorder), combined type (CMS/HCC); Asperger syndrome (CMS/HCC); Major depressive disorder, recurrent episode, moderate (HCC) (CMS/HCC) Start: 03-09-2024 End: 03-09-2024 Clinisync Result Encounter Generic External Data Provider [facility] External Department Unsolicited Start: 03-09-2024 End: 03-09-2024 Clinisync Result Encounter Generic External Data Provider [facility] External Department Unsolicited Start: 03-09-2024 End: 03-09-2024 Refill Kim Lutz FISCAL MANAGER Work Phone: [facility] Comment on above: Prediabetes Start: 02-26-2024 End: 02-26-2024 ambulatory Lolita X Orzech Facility:[facility] Start: 02-26-2024 End: 02-26-2024 Patient encounter procedure Lolita X Orzech [facility] Start: 02-20-2024 End: 02-23-2024 Clinisync Result Encounter Generic External Data Provider [facility] External Department Unsolicited Start: 02-20-2024 End: 02-23-2024 Clinisync Result Encounter Generic External Data Provider [facility] External Department Unsolicited Start: 02-05-2024 ambulatory Inga Hall Facility:[facility] Start: 02-04-2024 End: 02-04-2024 ambulatory RODRIGUEZ WEAVER Not Available Start: 02-04-2024 End: 02-04-2024 ambulatory KIM LUTZ Not Available Start: 02-03-2024 End: 02-03-2024 ambulatory CHELSEA ROSA Not Available Start: 08-13-2023 Bamboo flowsheet Rodriguez Villegas Danielle-Nossek NEWSPAPER EDITOR-LITHOPLATE MAKER Work Phone: [facility] Start: 08-13-2023 Bamboo flowsheet Rodriguez Villegas Danielle-Nossek NEWSPAPER EDITOR-LITHOPLATE MAKER Work Phone: [facility] Start: 08-13-2023 End: 08-13-2023 Office outpatient new 60 minutes Rodriguez Villegas Danielle-Nossek NEWSPAPER EDITOR-LITHOPLATE MAKER Work Phone: [facility] Comment on above: ADHD (attention defi cit hyperactivity disorder), combined type (CMS/HCC); Anxiety Start: 09-20-2022 AUDIT Unknown Unknown [facility] [address] [place] [address] Work Phone: Start: 08-06-2022 End: 08-06-2022 ambulatory HITESH LUTZ Facility:H1 Start: 07-18-2022 Office outpatient vi sit 15 minutes Unknown Unknown KS-Urwaxuukyv-Tbzrt 204 Work Phone: Start: 07-18-2022 Patient encounter procedure Unknown Unknown DD-Afknpxwedk-Kkbwe 204 Work Phone: Start: 05-15-2022 Patient encounter procedure Unknown Unknown IU-Utwczvkagk-Gbixa 204 Work Phone: Start: 04-30-2022 Rx Renewal Unknown Unknown MG-Ps[facility]iatry-[place] 204 Work Phone: Start: 04-28-2022 Rx Renewal Unknown Unknown MG-[facility]ry-[place] 204 Work Phone: Start: 03-11-2022 End: 03-11-2022 ambulatory [facility] KIM [facility] Facility:H[facility] Start: 02-10-2022 Office outpatient vi sit 15 minutes Unknown Unknown XI-Lywgmthenx-Danpa 204 Work Phone: Start: 01-23-2022 Office outpatient vi sit 25 minutes Unknown Unknown OW-Vknlgqgexs-Qyizn 204 Work Phone: Start: 01-03-2022 Office outpatient vi sit 25 minutes Unknown Unknown LM-Vpzrxvinlc-Eytfw 204 Work Phone: Start: 12-13-2021 Office outpatient vi sit 25 minutes Unknown Unknown MN-Qfgddcrhfa-Mptcv 204 Work Phone: Start: 11-19-2021 Rx Renewal Lula A Vac ca Work Phone: PY-Whmwjjymre-Fczlf 204 Work Phone: Start: 11-15-2021 End: 11-16-2021 ambulatory [facility] Start: 07-12-2021 Office outpatient vi sit 15 minutes Lula A Ramon Work Phone: [facility] [address] Work Phone: Start: 07-12-2021 Patient encounter procedure Lula A Ramon Work Phone: VN-Fofwmnubbf-Kmogi 204 Work Phone: Start: 06-04-2021 Rx Renewal Lula A Vac ca Work Phone: NW-Unajhxrufs-Rxfpm 204 Work Phone: Start: 04-24-2021 Rx Renewal Lula A Vac ca Work Phone: QI-Rgxyncyaqs-Jetmn 204 Work Phone: Start: 04-24-2021 Telephone encounter Lula A Ramon Work Phone: FC-Uxrnsdseix-Sdyyb 204 Work Phone: Start: 03-25-2021 Office outpatient vi sit 25 minutes Lula A Ramon Work Phone: [facility] [facility] Work Phone: Start: 03-22-2021 Office outpatient vi sit 15 minutes Lula A Ramon Work Phone: [facility] [facility] Work Phone: Start: 03-22-2021 Patient encounter procedure Lula A Ramon Work Phone: [facility] [facility] Work Phone: Start: 02-15-2021 Periodic preventive med est patient 12-17yrs Lula A Ramon Work Phone: [facility] [facility] Work Phone: Start: 02-12-2021 Office outpatient vi sit 25 minutes Lula A Ramon Work Phone: XF-Xkvnptmtvq-Kfwpp 204 Work Phone: Start: 11-20-2020 Office outpatient vi sit 25 minutes Lula A Ramon Work Phone: US-Cmemhlignw-Yxlsz 204 Work Phone: Start: 11-20-2020 Patient encounter procedure Lula A Ramon Work Phone: NG-Wacjfelrym-Oqvnw 204 Work Phone: Start: 12-02-2019 Patient encounter procedure Lula Ramon [facility] [facility] Work Phone: Start: 08-17-2019 Patient encounter procedure Lula Ramon [facility] [facility] Work Phone: Start: 03-03-2019 Patient encounter procedure Lula Ramon IV-Nhetawfcke-Yzizp 204 Work Phone: Start: 01-10-2019 Patient encounter procedure Lula Ramon XG-Ndtyxiwvzt-Rjilm 204 Work Phone: Start: 12-01-2018 Patient encounter procedure Lula Ramon ZP-Romrglertr-Oiijr 204 Work Phone: Start: 11-03-2018 Patient encounter procedure Marino Moorejose [facility] Work Phone: Start: 08-31-2018 Patient encounter procedure Marino Espino Facility:[id number] Start: 08-19-2018 Patient encounter procedure Lula Aparicio Ramon Facility:[id number] Start: 08-03-2018 Patient encounter procedure Lula Aparicio Ramon Facility:[id number] Start: 05-14-2018 Patient encounter procedure Marino Espino Facility:[id number] Start: 04-06-2018 Patient encounter procedure Marino Espino Facility:[id number] Start: 03-10-2018 End: 03-11-2018 Patient encounter JEFFERY Liz DELAROSA [facility] Start: 02-11-2018 Patient encounter procedure Lula Aparicio Ramon Facility:[id number] Start: 11-19-2017 Patient encounter procedure Marino Espino Facility:[id number] Start: 10-22-2017 Patient encounter procedure René Treviño Facility:[id number] Start: 06-03-2017 Patient encounter procedure Marino Moorejose [facility] [facility] Work Phone: Start: 05-19-2017 Patient encounter procedure Marino Moorejose [facility] [facility] Work Phone: Start: 04-14-2017 Patient encounter procedure Marino Espino [facility] [facility] Work Phone: Start: 02-27-2017 Patient encounter procedure Marino Moorejose [facility] [facility] Work Phone: Start: 01-12-2017 Patient encounter procedure Marino Moorejose [facility] [facility] Work Phone: Patient encounter status Edy Acuna Ramon Work Phone: TM-Zxtrenteqn-Cyfcj 204 Work Phone: Procedures Date Procedure Procedure Detail Performing Clinician Start: 03-24-2024 Cystourethroscopy wi th dilation of urethral stricture Inga Hall Start: 03-09-2024 ALL BASIC METABOLIC PANEL Generic External Data Provider Start: 02-20-2024 Bacteria identified in Urine by Culture Generic External Data Provider Adenoidectomy withou t tonsillectomy Marino Espino Comment on above: 07/2008; History of Myringotomy Marino Espino Comment on above: 08/2005, 07/2008 ( WIT H ADENOIDECTOMY ), 06/2010; Plan of Treatment Date Care Activity Detail Author Start: 02-08-2025 End: 02-08-2025 Patient encounter procedure 02/08/2025 4:00 PM EDT Office Visit [facility] [address] [place] [address] Rodriguez Weaver, NEWSPAPER EDITOR-[facility] [address] [place] [address] [facility] Start: 02-02-2025 End: 02-02-2025 Social Work 02/02/2025 3:00 PM EDT Social Work [facility] [address] [place] [phone] Chelsea Rosa, [facility] [address] [place] [address] [facility] Start: 01-16-2025 End: 01-16-2025 Patient encounter procedure 01/16/2025 4:00 PM EDT Office Visit [facility] [address] [place] [address] Kim Lutz NP [address] [place] [address] [facility] Start: 01-11-2025 End: 01-11-2026 CBC W Auto Differential panel - Blood CBC and differential Lab Routine PCOS (polycystic ovarian syndrome) Expected: 01/11/2025 (Approximate), Expires: 01/11/2026 [facility] Comment on above: Expected: 01/11/2025 (Approximate), Expires: 01/11/2026 Start: 01-11-2025 End: 01-11-2026 Comprehensive metabolic 2000 panel - Serum or Plasma Comprehensive metabolic panel Lab Routine Prediabetes PCOS (polycystic ovarian syndrome) Mixed hyperlipidemia Metabolic syndrome Expected: 01/11/2025 (Approximate), Expires: 01/11/2026 [facility] Comment on above: Expected: 01/11/2025 (Approximate), Expires: 01/11/2026 Start: 01-11-2025 End: 01-11-2026 Hemoglobin A1c/Hemoglobin.total in Blood Hemoglobin A1c Lab Routine Prediabetes Expected: 01/11/2025 (Approximate), Expires: 01/11/2026 [facility] Comment on above: Expected: 01/11/2025 (Approximate), Expires: 01/11/2026 Start: 01-11-2025 End: 01-11-2026 Insulin, random Insulin, random Lab Routine Prediabetes PCOS (polycystic ovarian syndrome) Expected: 01/11/2025 (Approximate), Expires: 01/11/2026 [facility] Comment on above: Expected: 01/11/2025 (Approximate), Expires: 01/11/2026 Start: 01-11-2025 End: 01-11-2026 Lipid 1996 panel - Serum or Plasma Lipid panel Lab Routine Mixed hyperlipidemia Expected: 01/11/2025 (Approximate), Expires: 01/11/2026 [facility] Comment on above: Expected: 01/11/2025 (Approximate), Expires: 01/11/2026 Start: 01-11-2025 End: 01-11-2026 Microalbumin/Creatinine panel in random Urine Microalbumin / creatinine, urine ratio Lab Routine Prediabetes Expected: 01/11/2025 (Approximate), Expires: 01/11/2026 [facility] Comment on above: Expected: 01/11/2025 (Approximate), Expires: 01/11/2026 Start: 01-11-2025 End: 01-11-2026 Thyrotropin [Units/volume] in Serum or Plasma TSH Lab Routine Morbid obesity ([facility]-HCC) Expected: 01/11/2025 (Approximate), Expires: 01/11/2026 [facility] Work Phone: Comment on above: Expected: 01/11/2025 (Approximate), Expires: 01/11/2026 Start: 01-11-2025 End: 01-11-2026 Urinalysis complete panel - Urine Urinalysis with reflex microscopic (clean catch) Lab Routine Prediabetes Expected: 01/11/2025 (Approximate), Expires: 01/11/2026 [facility] Comment on above: Expected: 01/11/2025 (Approximate), Expires: 01/11/2026 Start: 01-05-2025 End: 01-05-2025 Social Work 01/05/2025 2:00 PM EDT Social Work [facility] [address] [place] [address] Chelsea [facility] [address] [place] [address] [facility] Start: 01-04-2025 End: 01-04-2025 Patient encounter procedure [facility] Comment on above: Arrived Start: 11-24-2024 End: 11-24-2024 Social Work 11/24/2024 2:00 PM EDT Social Work [facility] [address] [place] [address] Chelsea Rosa[facility] [address] [place] [address] [facility] Start: 10-27-2024 End: 10-27-2024 Social Work 10/27/2024 2:00 PM EDT Social Work [facility] [address] [place] [address] Chelsea Rosa[facility] [address] [place] [address] [facility] Start: 10-26-2024 End: 10-26-2024 Patient encounter procedure [facility] Comment on above: Arrived Start: 09-27-2024 End: 09-27-2024 Social Work 09/27/2024 2:00 PM EDT Social Work [facility] [address] [place] [id number] Chelsea Rosa, [facility] [address] [place] [address] Arrived [facility] Comment on above: Arrived Start: 09-14-2024 End: 09-14-2024 Patient encounter procedure 09/14/2024 3:30 PM EDT Office Visit [facility] [address] [place] [address] Rodriguez Weaver, NEWSPAPER EDITOR-[facility] [address] [place] [address] [facility] Start: 08-11-2024 End: 08-11-2024 Social Work 08/11/2024 2:00 PM EST Social Work [facility] [address] [place] [address] Chelsea Rosa[facility] [address] [place] [address] [facility] Start: 08-03-2024 End: 08-03-2024 Patient encounter procedure 08/03/2024 2:20 PM EST Office Visit [facility] [address] [place] [address] Kim Lutz, JANNA [address] [place] [address] [facility] Start: 07-28-2024 End: 07-28-2024 Social Work 07/28/2024 2:00 PM EST Social Work [facility] [address] [place] [address] Chelsea Rosa[facility] [address] [place] [address] [facility] Start: 06-30-2024 End: 06-30-2024 Social Work [facility] Comment on above: Arrived Start: 06-27-2024 End: 06-27-2024 Patient encounter procedure 06/27/2024 4:00 PM EST Office Visit [facility] [address] [place] [address] Kim Lutz, FISCAL MANAGER [address] [place] [address] Arrived [facility] Comment on above: Arrived Start: 06-15-2024 End: 06-15-2024 Patient encounter procedure [facility] Comment on above: Arrived Start: 06-08-2024 End: 06-08-2024 Patient encounter procedure 06/08/2024 3:30 PM EST Office Visit [facility] [address] [place] [address] Rodriguez Weaver, [facility] [address] [place] [address] [facility] Start: 06-02-2024 End: 06-02-2024 Social Work 06/02/2024 2:00 PM EST Social Work [facility] [address] [place] [id number] Chelsea Rosa[facility] [address] [place] [address] [facility] Start: 04-07-2024 End: 04-07-2024 Social Work 04/07/2024 2:00 PM EDT Social Work [facility] [address] [place] [id number] Chelsea Rosa, [facility] [address] [place] [address] [facility] Start: 04-06-2024 End: 04-06-2024 Patient encounter procedure 04/06/2024 3:00 PM EDT Office Visit [facility] [address] [place] [address] Rodriguez Weaver, NEWSPAPER EDITOR-LITHOPLATE MAKER [address] [place] [address] [facility] Start: 03-10-2024 End: 03-10-2024 Social Work 03/10/2024 3:00 PM EDT Social Work [facility] [address] [place] [address] Chelsea Rosa, [facility] [address] [place] [address] [facility] Start: 09-16-2023 End: 09-16-2023 Patient encounter procedure 09/16/2023 3:30 PM EDT Office Visit [facility] [address] [place] [address] Rodriguez Weaver, NEWSPAPER EDITOR-LITHOPLATE MAKER [address] [place] [address] [facility] Start: 08-31-2023 End: 08-31-2023 Clinical Support 08/31/2023 5:00 PM EST Clinical Support [facility] [address] [place] [address] Aida Solomon, [facility] [address] [place] [address] [facility] Start: 08-13-2023 End: 08-13-2023 Patient encounter procedure 08/13/2023 9:30 AM EST Office Visit [facility] [address] [place] [address] Rodriguez Weaver, NEWSPAPER EDITOR-LITHOPLATE MAKER [address] [facility] [address] [place] [address] ADHD (attention deficit hyperactivity disorder), combined type (CMS/HCC) [facility] Comment on above: ADHD (attention defi cit hyperactivity disorder), combined type (CMS/HCC) Start: 02-27-2023 Influenza vaccination Influenza Vacc ine (#1) [facility] Start: 02-15-2021 EPVWELLADL, Provider : Linda Whitmore, Status: Pen, Time: 11:20 AM EPVWELLADL, Provider: Linda Whitmore, Status: Pen, Time: 11:20 AM MF-Leimtkivuh-Wyxrx 204 Work Phone: Start: 12-11-2020 EPVWELLADL, Provider : Linda Whitmore, Status: Pen, Time: 3:30 PM EPVWELLADL, Provider: Linda Whitmore, Status: Pen, Time: 3:30 PM QR-Vcjwmzpezb-Vhqvy 204 Work Phone: Immunizations Immunization Date Immunization Notes Care Provider [facility] 03-30-2022 meningococcal ACWY vaccine, unspecified formulation Inga Hall [facility] 03-30-2022 meningococcal polysaccharide (groups A, C, Y and W-135) diphtheria toxoid conjugate vaccine (MCV4P) Unknown Unknown ZJ-Wmaiylmulx-Zsvgo 204 Work Phone: 05-28-2021 influenza, seasonal, injectable Lula A Ramon Work Phone: SY-Izxqjwvqvw-Uxouy 204 Work Phone: 05-28-2021 influenza virus vaccine, unspecified formulation Rodriguez Weaver NEWSPAPER EDITOR-LITHOPLATE MAKER Work Phone: [facility] 04-29-2021 Moderna COVID-19 Vaccine 100 MCG/0.5ML Intramuscular Suspension Lula A Ramon Work Phone: [facility] 04-06-2021 influenza virus vaccine, unspecified formulation Inga Hall [facility] 04-06-2021 influenza, injectabl e, quadrivalent, preservative free Lula A Ramon Work Phone: YW-Btwhhzkeab-Mdyog 204 Work Phone: 04-06-2021 Pfizer-BioNTech COVID-19 Vacc 30 MCG/0.3ML Intramuscular Suspension Lula A Ramon Work Phone: [facility] 02-24-2021 Pfizer-BioNTech COVID-19 Vacc 30 MCG/0.3ML Intramuscular Suspension Lula A Ramon Work Phone: [facility] 06-03-2017 hepatitis A vaccine, pediatric/adolescent dosage, 2 dose schedule; Translations: [Vaqta 25 UNIT/0.5ML Intramuscular Suspension] [facility] Work Phone: Comment on above: Series: 06-03-2017 influenza, injectabl e, quadrivalent, preservative free; Translations: [Fluarix Quadrivalent 0.5 ML Intramuscular Suspension Prefilled Syringe] [facility] Work Phone: Comment on above: Series: 06-03-2017 hepatitis A vaccine, unspecified formulation Inga Rafael [facility] 06-03-2017 influenza virus vaccine, unspecified formulation Inga Hall [facility] 05-29-2016 meningococcal polysaccharide (groups A, C, Y and W-135) diphtheria toxoid conjugate vaccine (MCV4P); Translations: [Meningo (Menactra)] [facility] Work Phone: Comment on above: Series: 05-29-2016 tetanus toxoid, redu divya diphtheria toxoid, and acellular pertussis vaccine, adsorbed; Translations: [Tdap] Marino Espino [facility] Comment on above: Series: 05-29-2016 meningococcal ACWY vaccine, unspecified formulation Inga Hall [facility] 03-29-2016 influenza virus vaccine, unspecified formulation Inga Hall [facility] 03-29-2016 influenza, seasonal, injectable Lula A Ramon Work Phone: [id number] Work Phone: 03-18-2016 influenza virus vaccine, unspecified formulation Lula A Ramon Work Phone: [facility] Comment on above: Series: 03-18-2016 influenza, injectabl e, quadrivalent, preservative free Generic Provider [facility] 03-18-2016 influenza, seasonal, injectable Marino Espino [facility] Work Phone: 03-29-2015 influenza virus vaccine, live, attenuated, for intranasal use Inga Hall [facility] 03-29-2015 influenza virus vaccine, unspecified formulation Lula A Ramon Work Phone: [id number] 204 Work Phone: Comment on above: Series: 03-29-2015 influenza, live, intranasal, quadrivalent Generic Provider [facility] 03-29-2015 influenza, seasonal, injectable Marino Espino [facility] Work Phone: 03-24-2014 influenza virus vaccine, live, attenuated, for intranasal use Generic Provider [facility] 03-24-2014 influenza virus vaccine, unspecified formulation Lula A Ramon Work Phone: [id number] 204 Work Phone: Comment on above: Series: 03-24-2014 influenza, seasonal, injectable Marino Espino [facility] Work Phone: 10-30-2009 Diphtheria, tetanus toxoids and acellular pertussis vaccine, and poliovirus vaccine, inactivated Lula A Ramon Work Phone: [facility] Comment on above: Series: 10-30-2009 measles, mumps and rubella virus vaccine Lula A Ramon Work Phone: [facility] Comment on above: Series: 10-30-2009 varicella virus vaccine Kimb erly A Ramon Work Phone: [facility] Comment on above: Series: 10-30-2009 Diphtheria, tetanus toxoids and acellular pertussis vaccine, and poliovirus vaccine, inactivated Marino Espino [facility] Work Phone: 10-30-2009 measles, mumps and rubella virus vaccine Marino Espino [facility] Work Phone: 10-30-2009 varicella virus vaccine Marino Delgado farheen [facility] Work Phone: 05-05-2009 novel [id number], preservative-free, injectable Lula A Ramon Work Phone: [id number]-[id number] 204 Work Phone: 05-06-2007 influenza virus vaccine, unspecified formulation Lula A Ramon Work Phone: [id number]-[id number] 204 Work Phone: Comment on above: Series: 05-06-2007 influenza virus vaccine, whole virus Generic Provider [facility] 05-06-2007 influenza, injectabl e, quadrivalent, contains preservative Kim Aichholz FISCAL MANAGER Work Phone: [facility] 05-06-2007 influenza, seasonal, injectable Marino Espino [facility] Work Phone: 05-06-2007 influenza, whole Inga Mcguiree [facility] 05-14-2006 diphtheria, tetanus toxoids and acellular pertussis vaccine Inga Lue [facility] 05-14-2006 diphtheria, tetanus toxoids and acellular pertussis vaccine, 5 pertussis antigens Marino Espino [facility] Work Phone: Comment on above: Series: 05-14-2006 haemophilus influenz ae type b vaccine, PRP-T conjugate Marinoelmer Espino [facility] Comment on above: Series: 05-14-2006 Hep A, unspecified formulation Inga Hall [facility] 05-14-2006 hepatitis A vaccine, adult dosage Kim Lutz NP Work Phone: [facility] 05-14-2006 hepatitis A vaccine, unspecified formulation Marino Espino [facility] Work Phone: Comment on above: Series: 05-14-2006 influenza virus vaccine, unspecified formulation Lula A Ramon Work Phone: [facility] Comment on above: Series: 05-14-2006 influenza, seasonal, injectable Marino Espino [facility] Work Phone: 05-14-2006 measles, mumps and rubella virus vaccine Marino Espino [facility] Comment on above: Series: 02-05-2006 varicella virus vaccine Marino zhong [facility] Comment on above: Series: 10-28-2005 pneumococcal conjuga te vaccine, 7 valent [facility] Work Phone: Comment on above: Series: 07-22-2005 diphtheria, tetanus toxoids and acellular pertussis vaccine Generic Provider [facility] 07-22-2005 diphtheria, tetanus toxoids and acellular pertussis vaccine, 5 pertussis antigens [facility] Work Phone: Comment on above: Series: 07-22-2005 haemophilus influenz ae type b conjugate and Hepatitis B vaccine Lula A Ramon Work Phone: [id number]-[id number] 204 Work Phone: 07-22-2005 haemophilus influenz ae type b vaccine, PRP-T conjugate [facility] Work Phone: Comment on above: Series: 07-22-2005 hepatitis B vaccine, pediatric or pediatric/adolescent dosage [facility] Work Phone: Comment on above: Series: 07-22-2005 pneumococcal conjuga te vaccine, 7 valent [facility] Work Phone: Comment on above: Series: 07-22-2005 poliovirus vaccine, inactivated Lula Ramon UB-[id number]-Iazey 204 Work Phone: Comment on above: Series: 07-22-2005 poliovirus vaccine, unspecified formulation Inga Rafael [facility] 02-18-2005 diphtheria, tetanus toxoids and acellular pertussis vaccine Generic Provider [facility] 02-18-2005 diphtheria, tetanus toxoids and acellular pertussis vaccine, 5 pertussis antigens [facility] Work Phone: Comment on above: Series: 02-18-2005 haemophilus influenz ae type b vaccine, PRP-OMP conjugate [facility] Work Phone: Comment on above: Series: 02-18-2005 haemophilus influenz ae type b vaccine, PRP-T conjugate Generic Provider [facility] 02-18-2005 pneumococcal conjuga te vaccine, 7 valent [facility] Work Phone: Comment on above: Series: 02-18-2005 poliovirus vaccine, inactivated [facility] Work Phone: Comment on above: Series: 02-18-2005 poliovirus vaccine, unspecified formulation Inga Rafael [facility] 2004 diphtheria, tetanus toxoids and acellular pertussis vaccine Generic Provider [facility] 2004 diphtheria, tetanus toxoids and acellular pertussis vaccine, 5 pertussis antigens [facility] Work Phone: Comment on above: Series: 2004 haemophilus influenz ae type b conjugate and Hepatitis B vaccine Lula A Ramon Work Phone: [id number]-Gfkik 204 Work Phone: 2004 haemophilus influenz ae type b vaccine, PRP-T conjugate [facility] Work Phone: Comment on above: Series: 2004 hepatitis B vaccine, pediatric or pediatric/adolescent dosage [facility] Work Phone: Comment on above: Series: 2004 pneumococcal conjuga te vaccine, 7 valent [facility] Work Phone: Comment on above: Series: 2004 poliovirus vaccine, inactivated [facility] Work Phone: Comment on above: Series: 2004 poliovirus vaccine, unspecified formulation Inga Hall [facility] 2004 hepatitis B vaccine, pediatric or pediatric/adolescent dosage Marino Espino [facility] Comment on above: Series: Payers Date Payer Category Payer [employer] [id number] 2021 Unknown 2004 Unknown [id number] 2.16.8 [id number] 2004 Unknown [id number] 2.16.8 40.1.586308.3.579.2.727 2004 Unknown [id number] 2.16.8 40.1.654875.3.579.2.727 2004 Unknown [id number] 2.16.8 40.1.213417.3.579.2.1259 2004 Unknown [id number] 2.16.8 40.1.643469.3.579.2.1259 2004 Unknown [id number] 2.16.84 0.1.819321.3.579.2.1259 2004 Unknown [id number] 2.16.84 0.1.333121.3.579.2.1259 2004 Unknown [id number] 2.16.84 0.1.165390.3.579.2.1259 2004 Unknown [id number] 2.16.84 0.1.309726.3.579.2.1259 2004 Unknown [id number] 2.16.84 0.1.086492.3.579.2.1259 2004 Unknown [id number] 2.16.84 0.1.217332.3.579.2.1259 2004 Unknown [id number] 2.16.84 0.1.757278.3.579.2.1259 2004 Unknown [id number] 2.16.84 0.1.535508.3.579.2.1259 2004 Unknown [id number] 2.16.84 0.1.874807.3.579.2.1259 2004 Unknown [id number] 2.16.84 0.1.635521.3.579.2.1259 2004 Unknown [id number] 2.16.84 0.1.594523.3.579.2.1259 2004 Unknown [id number] 2.16.84 0.1.476080.3.579.2.1259 2004 Unknown [id number] 2.16.84 0.1.536954.3.579.2.1259 2004 Unknown [id number] 2.16.84 0.1.908436.3.579.2.1259 1979 Unknown [id number] 2. 840.1.907166.3.579.2.356 1979 Unknown [id number] 2. 840.1.210587.3.579.2.356 1979 Unknown [id number] 2.16. 840.1.929487.3.579.2.356 1979 Unknown [id number] .16.84 0.1.923662.3.579.2.593 1979 Unknown [id number] 2.16.84 0.1.571560.3.579.2.593 1979 Unknown [id number] .16.84 0.1.394358.3.579.2.593 1978 Unknown [id number] 2.16. 840.1.163130.3.579.2.356 1978 Unknown [id number] 2.16. 840.1.986724.3.579.2.356 1978 Unknown [id number] 2.16. 840.1.912793.3.579.2.356 1978 Unknown [id number] 2.16. 840.1.687326.3.579.2.356 1978 Unknown [id number] 2.16. 840.1.847041.3.579.2.356 1959 Unknown [id number] Medicaid [id number] Self-pay Unknown [id number] Unknown [id number] Unknown [id number] Unknown [id number] Social History Date Type Detail Facility Assertion Unknown if ever smoked [facility] Work Phone: Start: 06-28-2023 End: 09-14-2024 Feels safe at home Feels safe at home [id number]-Hxtjo 204 Work Phone: Start: 06-28-2023 End: 08-13-2023 Tobacco smoking status NHIS Never smoked tobacco [facility] Start: 06-28-2023 End: 01-04-2025 Alcohol intake Lifetime non-drinker (finding) [facility] Start: 06-28-2023 End: 09-14-2024 Tobacco use panel [facility] Start: 2004 Sex Assigned At Not on file [facility] Start: 08-13-2023 Tobacco use and exposure Smokeless tobacco non-user [facility] Start: 08-13-2023 Alcohol Comment caffiene- occasionally [facility] Tobacco smoking status Never [facility] Functional Status Date Assessment Result Facility 03-24-2024 Functional Status N/A [facility] 02-26-2024 Functional Status N/A [facility] NEGATED: Highlighted row Functional performance Functional status health issues are not documented [facility] Work [facility]: Mental Status Date Assessment Result Facility NEGATED: Highlighted row Cognitive function [Interpretation] Cognitive status health issues are not documented Disease [facility] Work Phone: Clinical Notes 08-27-2020 to 12-27-2024 Telephone Encounter - Jennie Ramires - 12/27/2024 9:10 AM EDTTelephone Encounter - Jennie Ramires - 12/27/2024 9:10 AM EDTTelephone Encounter - Jennie Ike - 12/01/2024 3:30 PM EDT Note Date & Type Note Facility 12-27-2024 Telephone encounter Note Patient is requesting a refill on Ativan sent to [facility]- Patient has a follow up scheduled for 01/04 [facility] 12-27-2024 Miscellaneous Notes Patient is requesting a refill on Ativan sent to [facility]- Patient has a follow up scheduled for 01/04 documented in this encounter [facility] 12-01-2024 Telephone encounter Note Patient requesting a refill on Ativan patient has a follow up scheduled for 01/04 [facility] 12-01-2024 Miscellaneous Notes Patient requesting a refill on Ativan patient has a follow up scheduled for 01/04 documented in this encounter [facility] 10-26-2024 History of Present illness Narrative Images from the original note were not included. Sparkle Pacheco is a 19 y.o. female presents for Medication Management. HPI: Patient is here for medication follow up. Patient has improved since last appt. Here with mother. She's been off OF Vyvanse. She is not sure where she lost vyvanse. She feels better off vyvanse. She has been doing well. Mood is reported as depressed and rates 0 (10worst). Anxiety is 8 (10worst). Has some bad days of anxiety before doctor appt. Feels anxious when alone. Feels better if dog is in room. Sleeping 8 hours. Medication compliant. No reported side effects. Denies abuse of substances. Denies Medical problems since last visit. Psychosocial stressors include will be interviewing for a job. She is still maintaining relationship. Does not drive. Waiting to get a job. 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 SUBJECTIVE: PAST MEDICAL HISTORY: Past Medical History: Diagnosis Date Anxiety Asperger syndrome ([facility]) 08/20/2023 Depression ([facility]) Irregular menses 08/20/2023 Major depressive disorder, recurrent episode, moderate ([facility]) 08/20/2023 Migraine headache ([facility]) 08/20/2023 Morbid obesity with BMI of 50.0-59.9, adult ([facility]) 08/20/2023 Obesity (BMI 35.0-39.9 without comorbidity) 05/26/2023 Prediabetes ALLERGIES: Allergies Allergen Reactions Sulfamethoxazole-Trimethoprim Rash and GI intolerance SURGICAL HISTORY: Past Surgical History: Procedure Laterality Date MRSA CT CREATE EARDRUM OPENING,GEN ANESTH PE TUBES x4 FAMILY HISTORY: Family History Problem Relation Name Age of Onset Hypertension Mother Diabetes Father Bipolar disorder Father's Sister Alcohol abuse Father's Sister Drug abuse Father's Sister Bipolar disorder Maternal Grandmother Anxiety disorder Maternal Grandmother Cancer Maternal Grandfather Heart disease Maternal Grandfather Bipolar disorder Paternal Grandmother Diabetes Paternal Grandfather Cancer Paternal Grandfather SOCIAL HISTORY: Social History Tobacco Use Smoking status: Never Smokeless tobacco: Never Vaping Use Vaping status: Never Used Substance Use Topics Alcohol use: Never Comment: caffiene- occasionally Drug use: Never REVIEW OF SYMPTOMS - MENTAL STATUS EXAM Appearance Appearance: Normal grooming and hygiene. Appears stated age. Dressed appropriately for weather. Behavior Calm, cooperative, pleasant. Good posture.. No abnormal movements. Speech Normal, clear, regular rate, rhythm and volume Affect Full range. Stable. Appropriate and congruent with mood. Mood Anxious at times Thought Process Organized, logical, and goal directed Thought Content Denies suicidal and homicidal ideation Perception Denies auditory and visual hallucinations. No evidence of delusions. Orientation Appropriate to age, Person, Place, and Time Memory/Concentration Immediate, recent and remote memory intact Insight/Judgement Good. Able to make reasonable life decisions. OBJECTIVE: Visit Vitals BP 126/74 (BP Location: Right arm, Patient Position: Sitting) Pulse 107 Wt 363 lb BMI 62.80 kg/m Smoking Status Never BSA 2.72 m No results found for: TSH Lab Results Component Value Date GLU 84 03/09/2024 CALCIUM 9.2 03/09/2024 NA 137 03/09/2024 K 3.9 03/09/2024 CO2 25.5 03/09/2024 BUN 7.0 03/09/2024 CREATININE 0.56 03/09/2024 No results found for: WBC , HGB , HCT , MCV , PLT No results found for: CHOL No results found for: HDL No results found for: LDLCALC No results found for: TRIG ASSESSMENT AND PLAN: Assessment/Plan Autism Spectrum Major Depressive disorder, recurrent ADHD (attention deficit hyperactivity disorder), combined type (CMS/HCC) Anxiety - PARoxetine (Paxil) 40 MG tablet; Take 1 tablet (40 mg) by mouth Daily Add Paxil 10mg po every day Ativan .5mg every day prn severe anxiety-has not needed Has not needed traZODone (Desyrel) 150 MG tablet; Take 1 tablet (150 mg) by mouth at bedtime - is needs vyvanse for work will restart. Hx of being on Mdayis -bad dreams Adderall, concerta, strattera.adzenys Continues with counseling. Sees Jr. Patient was seen Face to Face, Reviewed chart documents and documentation, Visit time : 25min F/U / months documented in this encounter [facility] 09-05-2024 Telephone encounter Note Patient needs a refill on Paxil sent to [facility] in [place]. Patient has a follow up on 09/14/24. [facility] 09-05-2024 Miscellaneous Notes Patient needs a refill on Paxil sent to [facility] in [place]. Patient has a follow up on 09/14/24. documented in this encounter [facility] 08-04-2024 Telephone encounter Note Patients mother states patients anxiety has been really bad lately and requested a refill on Lorazepam to be sent to [facility] in [place]. Patient has a follow up appointment scheduled for 09/14/24. [facility] 08-04-2024 Miscellaneous Notes Patients mother states patients anxiety has been really bad lately and requested a refill on Lorazepam to be sent to [facility] in [place]. Patient has a follow up appointment scheduled for 09/14/24. documented in this encounter [facility] 06-27-2024 History of Present illness Narrative Associated Problem(s): Morbid obesity (CMS/HCC) Discussed with patient their BMI (actual, verses recommended). We have also discussed lifestyle modifications: attempts to perform physical activity as chronic conditions allow, also to monitor dietary intake: increasing protein/fruits/veggies and lowering carb intake (unless contraindicated). Limit sodas, juices, and sugary drinks. Associated Problem(s): URI, acute Possible: COVID, RSV, flu, outside of window to treat Would not change out come Albuterol inhaler Fu if not better Associated Problem(s): Right acute otitis media Start atb Finish if not better RTO Right ear pain-unable to hear well. Pt states she started feeling unwell with a sore throat and has progressed to headaches, drainage, runny nose/stuffy nose, sinus pressure, hot and cold, sweating, body aches and pains, coughing up milky green mucus, sob after coughing a lot. Pt has been taking dayquil and allergy medication Images from the original note were not included. Sparkle Pacheco is a 18 y.o. female presents with chief complaint of Sinusitis and Earache HPI: Right ear pain-unable to hear well. Pt states she started feeling unwell with a sore throat and has progressed to headaches, drainage, runny nose/stuffy nose, sinus pressure, hot and cold, sweating, body aches and pains, coughing up milky green mucus, sob after coughing a lot. Pt has been taking dayquil and allergy medication Sinusitis This is a new problem. The current episode started in the past 7 days. The problem has been gradually improving since onset. There has been no fever. Associated symptoms include congestion, coughing, ear pain and sinus pressure. Pertinent negatives include no chills, headaches, shortness of breath or sore throat. Treatments tried: OTC meds. The treatment provided moderate relief. Earache There is pain in both ears. This is a new problem. The current episode started in the past 7 days. The problem occurs constantly. The problem has been gradually worsening. There has been no fever. The pain is moderate. Associated symptoms include coughing. Pertinent negatives include no abdominal pain, diarrhea, headaches, rash, sore throat or vomiting. Associated symptoms comments: Pressure , decreased hearing. There is no history of a chronic ear infection, hearing loss or a tympanostomy tube. SUBJECTIVE: MEDICATIONS: Current Outpatient Medications Medication Instructions fluocinonide (Lidex) 0.05 % external solution 1 application , As needed glycopyrrolate (ROBINUL) 1 mg, Daily Jolessa 0.15-0.03 MG tablet TAKE 1 TABLET BY MOUTH DAILY at the same time lisdexamfetamine (VYVANSE) 60 mg, Oral, Every morning LORazepam (ATIVAN) 0.5 mg, Oral, Every 6 hours PRN mirabegron ER (MYRBETRIQ) 50 mg, Daily mometasone (Elocon) 0.1 % ointment 1 application , Daily PARoxetine (PAXIL) 40 mg, Oral, Daily traZODone (DESYREL) 150 mg, Oral, Nightly Trulicity 0.75 mg, Subcutaneous, Weekly ALLERGIES: Allergies Allergen Reactions Sulfamethoxazole-Trimethoprim Rash and GI intolerance REVIEW OF SYMPTOMS: Review of Systems Constitutional: Negative for appetite change, chills and fever. HENT: Positive for congestion, ear pain and sinus pressure. Negative for sore throat. Eyes: Negative for pain, discharge, redness and visual disturbance. Respiratory: Positive for cough. Negative for shortness of breath and wheezing. Cardiovascular: Negative for chest pain, palpitations and leg swelling. Gastrointestinal: Negative for abdominal pain, blood in stool, constipation, diarrhea, nausea and vomiting. Genitourinary: Negative for difficulty urinating, dysuria and frequency. Musculoskeletal: Negative for arthralgias, back pain, joint swelling and myalgias. Skin: Negative for rash and wound. Neurological: Negative for dizziness, tremors, seizures, syncope and headaches. Psychiatric/Behavioral: Negative for behavioral problems, self-injury and suicidal ideas. The patient is not nervous/anxious. Hematological: Does not bruise/bleed easily. Endocrine: Negative for polydipsia, polyphagia and polyuria. Allergic/Immunologic: Negative for environmental allergies and food allergies. PAST MEDICAL HISTORY Past Medical History: Diagnosis Date Anxiety Asperger syndrome ([facility]) 08/20/2023 Depression ([facility]) Irregular menses 08/20/2023 Major depressive disorder, recurrent episode, moderate ([facility]) 08/20/2023 Migraine headache ([facility]) 08/20/2023 Morbid obesity with BMI of 50.0-59.9, adult ([facility]) 08/20/2023 Obesity (BMI 35.0-39.9 without comorbidity) 05/26/2023 Prediabetes Past Surgical History: Procedure Laterality Date MRSA CT CREATE EARDRUM OPENING,GEN ANESTH PE TUBES x4 family history includes Alcohol abuse in her father's sister; Anxiety disorder in her maternal grandmother; Bipolar disorder in her father's sister, maternal grandmother, and paternal grandmother; Cancer in her maternal grandfather and paternal grandfather; Diabetes in her father and paternal grandfather; Drug abuse in her father's sister; Heart disease in her maternal grandfather; Hypertension in her mother. OBJECTIVE: Visit Vitals BP 122/84 (BP Location: Left arm, Patient Position: Sitting, BP Cuff Size: Large adult long) Pulse 103 Temp 98.5 F (Temporal) Resp 19 Ht 5' 3.75 Wt 345 lb 6.4 oz SpO2 96% BMI 59.75 kg/m Smoking Status Never BSA 2.66 m Physical Exam Vitals and nursing note reviewed. Constitutional: General: She is not in acute distress. Appearance: Normal appearance. She is obese. She is not ill-appearing. HENT: Head: Normocephalic and atraumatic. Right Ear: Ear canal and external ear normal. Left Ear: Tympanic membrane, ear canal and external ear normal. Ears: Comments: Bulging erythema, TM Nose: Congestion and rhinorrhea present. Mouth/Throat: Mouth: Mucous membranes are moist. Pharynx: No oropharyngeal exudate or posterior oropharyngeal erythema. Eyes: Extraocular Movements: Extraocular movements intact. Conjunctiva/sclera: Conjunctivae normal. Cardiovascular: Rate and Rhythm: Normal rate and regular rhythm. Pulses: Normal pulses. Heart sounds: Normal heart sounds. Pulmonary: Effort: Pulmonary effort is normal. Breath sounds: Wheezing (exp) present. Comments: Moist cough Abdominal: General: Bowel sounds are normal. There is no distension. Palpations: Abdomen is soft. There is no mass. Tenderness: There is no abdominal tenderness. Musculoskeletal: General: Normal range of motion. Cervical back: Normal range of motion and neck supple. Right lower leg: No edema. Left lower leg: No edema. Lymphadenopathy: Cervical: No cervical adenopathy. Skin: General: Skin is warm and dry. Capillary Refill: Capillary refill takes 2 to 3 seconds. Findings: No rash. Neurological: General: No focal deficit present. Mental Status: She is alert and oriented to person, place, and time. Psychiatric: Mood and Affect: Mood normal. Behavior: Behavior normal. Thought Content: Thought content normal. Judgment: Judgment normal. ASSESSMENT AND PLAN: No follow-ups on file. Problem List Items Addressed This Visit BMI 50.0-59.9, adult ([facility]) Right acute otitis media - Primary Start atb Finish if not better RTO Relevant Medications amoxicillin-clavulanate (Augmentin) 875-125 MG tablet URI, acute Possible: COVID, RSV, flu, outside of window to treat Would not change out come Albuterol inhaler Fu if not better Relevant Medications albuterol HFA 90 mcg/act inhaler methylPREDNISolone (Medrol Dospak) 4 MG tablets Morbid obesity ([facility]) Discussed with patient their BMI (actual, verses recommended). We have also discussed lifestyle modifications: attempts to perform physical activity as chronic conditions allow, also to monitor dietary intake: increasing protein/fruits/veggies and lowering carb intake (unless contraindicated). Limit sodas, juices, and sugary drinks. documented in this encounter [facility] 06-27-2024 Instructions Kim Lutz NP - 06/27/2024 4:00 PM EST Wheeze: inhaler and steroids Ear infection: antibiotic Fluids, rest, Fu if not bettet documented in this encounter [facility] 06-15-2024 History of Present illness Narrative Images from the original note were not included. Sparkle Pacheco is a 18 y.o. female presents for Medication Management. HPI: Patient is here for medication follow up. Patient has improved since last appt. Mood is reported as not depressed . Mom wonders if patient may have hoarding tendency. Anxiety few times. Sleeping well. Medication compliant. No reported side effects. Denies abuse of substances. Denies Medical problems since last visit. Denies Psychosocial stressors. 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 SUBJECTIVE: PAST MEDICAL HISTORY: Past Medical History: Diagnosis Date Anxiety Asperger syndrome ([facility]) 08/20/2023 Depression ([facility]) Irregular menses 08/20/2023 Major depressive disorder, recurrent episode, moderate ([facility]) 08/20/2023 Migraine headache ([facility]) 08/20/2023 Morbid obesity with BMI of 50.0-59.9, adult ([facility]) 08/20/2023 Obesity (BMI 35.0-39.9 without comorbidity) 05/26/2023 Prediabetes ALLERGIES: Allergies Allergen Reactions Sulfamethoxazole-Trimethoprim Rash and GI intolerance SURGICAL HISTORY: Past Surgical History: Procedure Laterality Date MRSA CT CREATE EARDRUM OPENING,GEN ANESTH PE TUBES x4 FAMILY HISTORY: Family History Problem Relation Name Age of Onset Hypertension Mother Diabetes Father Bipolar disorder Father's Sister Alcohol abuse Father's Sister Drug abuse Father's Sister Bipolar disorder Maternal Grandmother Anxiety disorder Maternal Grandmother Cancer Maternal Grandfather Heart disease Maternal Grandfather Bipolar disorder Paternal Grandmother Diabetes Paternal Grandfather Cancer Paternal Grandfather SOCIAL HISTORY: Social History Tobacco Use Smoking status: Never Smokeless tobacco: Never Vaping Use Vaping status: Never Used Substance Use Topics Alcohol use: Never Comment: caffiene- occasionally Drug use: Never Depression: Not at risk (04/06/2024) PHQ-2 PHQ-2 Score: 0 REVIEW OF SYMPTOMS - MENTAL STATUS EXAM Appearance Appearance: Casual dress, normal grooming and hygiene Attitude Attitude: Cooperative, conversant, engaged, and with good eye contact. Behavior Cooperative, conversant, engaged, and with good eye contact. Speech Normal, clear, regular rate, rhythm and volume Affect full affect appropriate with mood Mood euthymic Thought Process Organized and Clear Thought Content No Suicidal Ideation and No Homicidal ideation Perception No perceptual abnormalities noted Orientation Appropriate to age, Person, Place, and Time Memory/Concentration Short term intact and ferry terminal agent intact Insight/Judgement Good OBJECTIVE: Visit Vitals Smoking Status Never No results found for: TSH Lab Results Component Value Date GLU 84 03/09/2024 CALCIUM 9.2 03/09/2024 NA 137 03/09/2024 K 3.9 03/09/2024 CO2 25.5 03/09/2024 BUN 7.0 03/09/2024 CREATININE 0.56 03/09/2024 No results found for: WBC , HGB , HCT , MCV , PLT No results found for: CHOL No results found for: HDL No results found for: LDLCALC No results found for: TRIG ASSESSMENT AND PLAN: Assessment/Plan Autism Spectrum Major Depressive disorder, recurrent ADHD (attention deficit hyperactivity disorder), combined type (CMS/HCC) lisdexamfetamine (Vyvanse) 60 MG capsule; Take 1 capsule (60 mg) by mouth in the morning. Anxiety - PARoxetine (Paxil) 40 MG tablet; Take 1 tablet (40 mg) by mouth Daily Ativan .5mg every day prn severe anxiety-has not needed Insomnia, unspecified type - traZODone (Desyrel) 150 MG tablet; Take 1 tablet (150 mg) by mouth at bedtime Hx of being on Mdayis -bad dreams Adderall, concerta, strattera.adzenys Patient was seen Face to Face, Reviewed chart documents and documentation, Visit time : 30 min Follow up 3 months documented in this encounter [facility] 06-07-2024 Telephone encounter Note Patients mother called in for a refill on Vyvanse sent to [facility] in [place]. Patient has a follow up scheduled on 06/15. [facility] 06-07-2024 Miscellaneous Notes Patients mother called in for a refill on Vyvanse sent to [facility] in [place]. Patient has a follow up scheduled on 06/15. documented in this encounter [facility] 04-06-2024 History of Present illness Narrative Images from the original note were not included. Sparkle Pacheco is a 18 y.o. female presents for Medication Management. HPI: Patient is here for medication follow up. Her with her mother. 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 Patient has improved since last appt. Mood is reported as not depressed. Anxiety has been less. Takes ativan prn. Sleeping 6-10 hours. Medication compliant. No reported side effects. Denies abuse of substances. Medical problems since last visit. Had a procedure where she had a dilation. Denies Psychosocial stressors. Seeing Norma Rosa for counseling. SUBJECTIVE: PAST MEDICAL HISTORY: Past Medical History: Diagnosis Date Anxiety Asperger syndrome (CMS/HCC) 08/20/2023 Depression ([facility]) Irregular menses 08/20/2023 Major depressive disorder, recurrent episode, moderate (HCC) ([facility]) 08/20/2023 Migraine headache ([facility]) 08/20/2023 Morbid obesity with BMI of 50.0-59.9, adult ([facility]) 08/20/2023 Obesity (BMI 35.0-39.9 without comorbidity) 05/26/2023 Prediabetes ALLERGIES: Allergies Allergen Reactions Sulfamethoxazole-Trimethoprim Rash and GI intolerance SURGICAL HISTORY: Past Surgical History: Procedure Laterality Date MRSA CT CREATE EARDRUM OPENING,GEN ANESTH PE TUBES x4 FAMILY HISTORY: Family History Problem Relation Name Age of Onset Hypertension Mother Diabetes Father Bipolar disorder Father's Sister Alcohol abuse Father's Sister Drug abuse Father's Sister Bipolar disorder Maternal Grandmother Anxiety disorder Maternal Grandmother Cancer Maternal Grandfather Heart disease Maternal Grandfather Bipolar disorder Paternal Grandmother Diabetes Paternal Grandfather Cancer Paternal Grandfather SOCIAL HISTORY: Social History Tobacco Use Smoking status: Never Smokeless tobacco: Never Vaping Use Vaping status: Never Used Substance Use Topics Alcohol use: Never Comment: caffiene- occasionally Drug use: Never Depression: Not at risk (02/04/2024) PHQ-2 PHQ-2 Score: 2 REVIEW OF SYMPTOMS - MENTAL STATUS EXAM Appearance Appearance: Casual dress, normal grooming and hygiene Attitude Attitude: Cooperative, conversant, engaged, and with good eye contact. Behavior Cooperative, conversant, engaged, and with good eye contact. Speech Normal, clear, regular rate, rhythm and volume Affect full affect appropriate with mood Mood Anxious Thought Process Organized and Clear and Racing Thought Content No Suicidal Ideation and No Homicidal ideation Perception No perceptual abnormalities noted Orientation Appropriate to age, Person, Place, and Time Memory/Concentration Short term intact and ferry terminal agent intact Insight/Judgement Fair OBJECTIVE: Visit Vitals Smoking Status Never No results found for: TSH Lab Results Component Value Date GLU 84 03/09/2024 CALCIUM 9.2 03/09/2024 NA 137 03/09/2024 K 3.9 03/09/2024 CO2 25.5 03/09/2024 BUN 7.0 03/09/2024 CREATININE 0.56 03/09/2024 No results found for: WBC , HGB , HCT , MCV , PLT No results found for: CHOL No results found for: HDL No results found for: LDLCALC No results found for: TRIG ASSESSMENT AND PLAN: Assessment/Plan Assess/Plan SmartLinks: Autism Spectrum Major Depressive disorder, recurrent ADHD (attention deficit hyperactivity disorder), combined type (CMS/HCC) lisdexamfetamine (Vyvanse) 60 MG capsule; Take 1 capsule (60 mg) by mouth in the morning. Anxiety - PARoxetine (Paxil) 40 MG tablet; Take 1 tablet (40 mg) by mouth Daily Ativan .5mg every day prn severe anxiety-has not needed Insomnia, unspecified type - traZODone (Desyrel) 150 MG tablet; Take 1 tablet (150 mg) by mouth at bedtime Hx of being on Mdayis -bad dreams Adderall, concerta, strattera.adzenys Patient was seen Face to Face, With mom, Reviewed chart documents and documentation, Visit time : 45min F/U 19/08 documented in this encounter [facility] 03-24-2024 Hospital Discharge instructions Patient Education 03/24/2024 10:22:36 Dysuria Dysuria Dysuria is pain or discomfort during urination. The pain or discomfort may be felt in the part of the body that drains urine from the bladder (urethra) or in the surrounding tissue of the genitals. The pain may also be felt in the groin area, lower abdomen, or lower back. You may have to urinate frequently or have the sudden feeling that you have to urinate (urgency). Dysuria can affect anyone, but it is more common in females. Dysuria can be caused by many different things, including: Urinary tract infection. Kidney stones or bladder stones. Certain STIs (sexually transmitted infections), such as chlamydia. Dehydration. Inflammation of the tissues of the vagina. Use of certain medicines. Use of certain soaps or scented products that cause irritation. Follow these instructions at home: Medicines Take nyiz-sfg-onbyvcs and prescription medicines only as told by your health care provider. If you were prescribed an antibiotic medicine, take it as told by your health care provider. Do not stop taking the antibiotic even if you start to feel better. Eating and drinking Drink enough fluid to keep your urine pale yellow. Avoid caffeinated beverages, tea, and alcohol. These beverages can irritate the bladder and make dysuria worse. In males, alcohol may irritate the prostate. General instructions Watch your condition for any changes. Urinate often. Avoid holding urine for long periods of time. If you are female, you should wipe from front to back after urinating or having a bowel movement. Use each piece of toilet paper only once. Empty your bladder after sex. Keep all follow-up visits. This is important. If you had any tests done to find the cause of dysuria, it is up to you to get your test results. Ask your health care provider, or the department that is doing the test, when your results will be ready. Contact a health care provider if: You have a fever. You develop pain in your back or sides. You have nausea or vomiting. You have blood in your urine. You are not urinating as often as you usually do. Get help right away if: Your pain is severe and not relieved with medicines. You cannot eat or drink without vomiting. You are confused. You have a rapid heartbeat while resting. You have shaking or chills. You feel extremely weak. Summary Dysuria is pain or discomfort while urinating. Many different conditions can lead to dysuria. If you have dysuria, you may have to urinate frequently or have the sudden feeling that you have to urinate (urgency). Watch your condition for any changes. Keep all follow-up visits. Make sure that you urinate often and drink enough fluid to keep your urine pale yellow. This information is not intended to replace advice given to you by your health care provider. Make sure you discuss any questions you have with your health care provider. Document Revised: 01/25/2021 Document Reviewed: 01/25/2021 [employer] Patient Education 2023 [employer]. Follow Up Care 03/08/2024 11:25:52 With:Rafael ZARAGOZA, MAHOGANY Garcia, URO Address: When: Unknown [facility] 03-24-2024 Note Patient Education Urology Dysuria Dysuria is pain or discomfort during urination. The pain or discomfort may be felt in the part of the body that drains urine from the bladder (urethra) or in the surrounding tissue of the genitals. The pain may also be felt in the groin area, lower abdomen, or lower back. You may have to urinate frequently or have the sudden feeling that you have to urinate (urgency). Dysuria can affect anyone, but it is more common in females. Dysuria can be caused by many different things, including: ? Urinary tract infection. ? Kidney stones or bladder stones. ? Certain STIs (sexually transmitted infections), such as chlamydia. ? Dehydration. ? Inflammation of the tissues of the vagina. ? Use of certain medicines. ? Use of certain soaps or scented products that cause irritation. Follow these instructions at home: Medicines ? Take vvdi-wbo-qhzyiqt and prescription medicines only as told by your health care provider. ? If you were prescribed an antibiotic medicine, take it as told by your health care provider. Do not stop taking the antibiotic even if you start to feel better. Eating and drinking ? Drink enough fluid to keep your urine pale yellow. ? Avoid caffeinated beverages, tea, and alcohol. These beverages can irritate the bladder and make dysuria worse. In males, alcohol may irritate the prostate. General instructions ? Watch your condition for any changes. ? Urinate often. Avoid holding urine for long periods of time. ? If you are female, you should wipe from front to back after urinating or having a bowel movement. Use each piece of toilet paper only once. ? Empty your bladder after sex. ? Keep all follow-up visits. This is important. ? If you had any tests done to find the cause of dysuria, it is up to you to get your test results. Ask your health care provider, or the department that is doing the test, when your results will be ready. Contact a health care provider if: ? You have a fever. ? You develop pain in your back or sides. ? You have nausea or vomiting. ? You have blood in your urine. ? You are not urinating as often as you usually do. Get help right away if: ? Your pain is severe and not relieved with medicines. ? You cannot eat or drink without vomiting. ? You are confused. ? You have a rapid heartbeat while resting. ? You have shaking or chills. ? You feel extremely weak. Summary ? Dysuria is pain or discomfort while urinating. Many different conditions can lead to dysuria. ? If you have dysuria, you may have to urinate frequently or have the sudden feeling that you have to urinate (urgency). ? Watch your condition for any changes. Keep all follow-up visits. ? Make sure that you urinate often and drink enough fluid to keep your urine pale yellow. This information is not intended to replace advice given to you by your health care provider. Make sure you discuss any questions you have with your health care provider. Document Revised: 01/25/2021 Document Reviewed: 01/25/2021 [employer] Patient Education ? 2023 [employer]. [facility] 03-01-2024 Note Urology Office/Clini c Note Chief Complaint referral- decreased urine stream, dysuria HPI Staff New pt referred by Kim Castaneda NP for decreased urine stream and dysuria. Never seen in our office before (verified on [employer]). Neg ucx 08/06/22 and 01/27/24. Renal fxn 10/17/23 - BUN 11, Cr 0.68, GFR >60. [facility] ER 02/20/24 CC: dysuria, urgency, and frequency. Bladder scan did not show any urine retention. UA was limited by Azo. UCx showed mixed urogenital enio. Dysuria: _lower abd after urinating Incomplete bladder emptying: at times Hematuria: no Frequency: no Urgency: _yes and when she gets to restroom and she has to force urine out Nocturia: _no Stream: _weak Leaking: _no Post void dripping: _no Wearing pads/ Depends: _no Urge incontinence: _no Stress incontinence: _no Incontinence without Sensory Awareness: _no Abdominal pain: _lower Flank pain: _lower Sexual complaints: _ History of Present Illness I have reviewed and verified the staff HPI to be accurate for this encounter. Portions of this record may have been created with voice recognition artificial intelligence software, specifically [email or web address], [employer] and or [employer]. Substitutions may have occurred due to the inherent limitations of voice recognition and artificial intelligence software. Review of Systems PHQ Score Initial Depression Screen Score: 0 SCORE Physical Exam Vitals & Measurements HR: 80(Peripheral) BP: 120/78 HT: 64 in HT: 162 cm WT: 144 kg WT: 316.8 lb BMI: 54.87 General: Well developed, well nourished, in no acute distress. Patient is here with mom today who does help provide some of her history. Genitourinary: Flank Pain: moderate bilateral. Bladder: nonpalpable. Uncomfortable to palpation Assessment/Plan Hx of Asperger syndrome BBS 14 1. Decreased urine stream (R39.198: Other difficulties with micturition) Patient feels that for several months she has had very weak urinary stream, straining and performing voiding maneuvers to urinate. She is constantly very uncomfortable. UA today without signs of blood, trace leukocytes. We discussed this is likely contamination. She has trialed being treated for urine infection which did not improve her symptoms. We discussed anatomy, possibility of stricture versus overactivity of the bladder. Patient and mother note that PCP did discuss dilation with her and she is very interested in this. I did advise patient that dilation would only occur if obvious stricture was noted at the time of cystoscopy. Will schedule Cysto with UD. The procedure risks, benefits, details, and treatment alternatives have been discussed with the patient. These include bleeding, infection, recurrent scar in over 50%, need for repeat dilation or other procedures, no symptom relief with dilation, among others. Patient/mother would like to proceed. Will order Local anesthesia. -Cystoscopy/possible UD 2. Bladder pain (R39.89: Other symptoms and signs involving the genitourinary system) Ongoing for patient. She is not able to verbalize if bladder/flank discomfort is worse with full bladder or while she is urinating. 10/25/2023-BUN 11, creat 0.68, eGFR >60 -Obtain ultrasound kidney/bladder to rule out abnormality or stone, will call patient/mom with results -[facility], will call patient/mother with results 3. Flank pain (R10.9: Unspecified abdominal pain) See #2 4. Urinary urgency (R39.15: Urgency of urination) Patient states that she constantly feels the urge to void, which is why she is going so frequently. However, she has got a very weak urinary stream, barely goes. Is straining and performing voiding maneuvers in order to empty. Denies any recent change in oral intake, bowel habits. Abrupt onset of symptoms. -Schedule cystoscopy, possible dilation if warranted -? OAB med in the future Follow-up With When Contact Information Rafael ZARAGOZA, Inga Lopez, URL, URO Additional Instructions: Cystoscopy Patient Education Cystoscopy Flank Pain, Adult Problem List/Past Medical History Ongoing Acute cystitis without hematuria ADHD (attention deficit hyperactivity disorder), combined type Anxiety Asperger syndrome Autism Bladder pain Decreased urine stream Dysuria Flank pain Irregular menses Major depressive disorder, recurrent, moderate Metabolic syndrome Migraine headache Mixed hyperlipidemia Morbid obesity with BMI of 50.0-59.9, adult PCOS (polycystic ovarian syndrome) Polydipsia Prediabetes Rectal bleeding Historical No qualifying data Medications glycopyrrolate 1 mg oral tablet Jolessa oral tablet LORazepam 0.5 mg Tab, 0.5 mg= 1 tab(s), Oral, TID, PRN paroxetine 40 mg Tab, 40 mg= 1 tab(s), Oral, Daily traZODONE 150 mg Tab, 150 mg= 1 tab(s), Oral, Once a day (at bedtime) Vyvanse 60 mg oral capsule Allergies Bactrim (Nausea, Rash) Social History Tobacco Never (less than 100 in lifetime) Tobacco Use:. Never Sm (more content not included)... [facility] Comment on above: Result Comment: Elec tronically Signed By: ELISABET Richardson APRN, [place] X\.br\Date and Time Signed: 03/01/24 14:18 EDT 03-01-2024 Note Patient Education Orthopedics Flank Pain, Adult Flank pain is pain that is located on the side of the body between the upper abdomen and the spine. This area is called the flank. The pain may occur over a short period of time (acute), or it may be long-term or recurring (chronic). It may be mild or severe. Flank pain can be caused by many things, including: ? Muscle soreness or injury. ? Kidney infection, kidney stones, or kidney disease. ? Stress. ? A disease of the spine (vertebral disk disease). ? A lung infection (pneumonia). ? Fluid around the lungs (pulmonary edema). ? A skin rash caused by the chickenpox virus (shingles). ? Tumors that affect the back of the abdomen. ? Gallbladder disease. Follow these instructions at home: ? Drink enough fluid to keep your urine pale yellow. ? Rest as told by your health care provider. ? Take aplf-trk-toikbub and prescription medicines only as told by your health care provider. ? Keep a journal to track what has caused your flank pain and what has made it feel better. ? Keep all follow-up visits. This is important. Contact a health care provider if: ? Your pain is not controlled with medicine. ? You have new symptoms. ? Your pain gets worse. ? Your symptoms last longer than 2?3 days. ? You have trouble urinating or you are urinating very frequently. Get help right away if: ? You have trouble breathing or you are short of breath. ? Your abdomen hurts or it is swollen or red. ? You have nausea or vomiting. ? You feel faint, or you faint. ? You have blood in your urine. ? You have flank pain and a fever. These symptoms may represent a serious problem that is an emergency. Do not wait to see if the symptoms will go away. Get medical help right away. Call your local emergency services (911 in the [place] Do not drive yourself to the hospital. Summary ? Flank pain is pain that is located on the side of the body between the upper abdomen and the spine. ? The pain may occur over a short period of time (acute), or it may be long-term or recurring (chronic). It may be mild or severe. ? Flank pain can be caused by many things. ? Contact your health care provider if your symptoms get worse or last longer than 2?3 days. This information is not intended to replace advice given to you by your health care provider. Make sure you discuss any questions you have with your health care provider. Document Revised: 08/26/2021 Document Reviewed: 08/26/2021 Elsevier Patient Education ? 2023 [employer] Urology Cystoscopy Cystoscopy is a procedure that is used to help diagnose and sometimes treat conditions that affect the lower urinary tract. The lower urinary tract includes the bladder and the urethra. The urethra is the tube that drains urine from the bladder. Cystoscopy is done using a thin, tube-shaped instrument with a light and camera at the end (cystoscope). The cystoscope may be hard or flexible, depending on the goal of the procedure. The cystoscope is inserted through the urethra, into the bladder. Cystoscopy may be recommended if you have: ? Urinary tract infections that keep coming back. ? Blood in the urine (hematuria). ? An inability to control when you urinate (urinary incontinence) or an overactive bladder. ? Unusual cells found in a urine sample. ? A blockage in the urethra, such as a urinary stone. ? Painful urination. ? An abnormality in the bladder found during an intravenous pyelogram (IVP) or CT scan. Cystoscopy may also be done to remove a sample of tissue to be examined under a microscope (biopsy). Tell a health care provider about: ? Any allergies you have. ? All medicines you are taking, including vitamins, herbs, eye drops, creams, and xkud-evk-rtaachm medicines. ? Any problems you or family members have had with anesthetic medicines. ? Any blood disorders you have. ? Any surgeries you have had. ? Any medical conditions you have. ? Whether you are or may be . What are the risks? Generally, this is a safe procedure. However, problems may occur, including: ? Infection. ? Bleeding. ? Allergic reactions to medicines. ? Damage to other structures or organs. What happens before the procedure? Medicines Ask your health care provider about: ? Changing or stopping your regular medicines. This is especially important if you are taking diabetes medicines or blood thinners. ? Taking medicines such as aspirin and ibuprofen. These medicines can thin your blood. Do not take these medicines unless your health care provider tells you to take them. ? Taking qidw-lkw-qeeuftj medicines, vitamins, herbs, and supplements. Tests You may have an exam or testing, such as: ? X-rays of the bladder, urethra, or kidneys. ? CT scan of the abdomen or pelvis. ? Urine tests to check for signs of infection. General instructions ? Follow instructions from your health care provider about eat (more content not included)... [facility] 02-26-2024 Evaluation + Plan note Diagnostic Tests PendingBasic Metabolic Panel 02/26/24 [facility] 08-13-2023 History of Present illness Narrative NEW PATIENT PSYCHIATRIC EVALUATION HPI This is an 17-year-old female who was referred by her primary care physician. Patient has been under the care of Psychiatry at [facility] and would like to change providers. [...] ADHD and Asperger's when younger at the [facility]. Patient's mother was asked to bring in the report. Patient has previously seen a physician in [place] for psychiatric medication and [facility]. The patient has active symptoms include episodes [...] outside of school. Patient was employed with [employer]- worked 9 days and was let go. [...] been under the care of Psychiatry at [facility] and would like to change providers. [...] and documentation 85min documented in this encounter [facility] 07-18-2022 Chief complaint Narrative - Reported Accompanied [...] per policy PH-9.. - , address, insurance [facility] Work Phone: 07-18-2022 Chief complaint Narrative - [...] per policy PH-9.. - , address, insurance [facility] Work Phone: 05-15-2022 Chief complaint Narrative [...] per policy PH-9.. - , address, insurance [id number] Work Phone: 04-29-2022 History of Present illness [...] personally reviewed the OARRS report for [employer]. I have considered the risks of abuse, dependence, addiction and diversion.I have the following concerns: no concerns.Is the patient prescribed a combination of a benzodiazepine and opioid? No. [id number] Work Phone: 04-29-2022 History of Present [...] combination of a benzodiazepine and opioid? No. [facility] Work Phone: 02-10-2022 Chief complaint Narrative - [...] per policy PH-9.. - , address, insurance [facility] Work Phone: 01-23-2022 Chief complaint Narrative - [...] per policy PH-9.. - , address, insurance [facility] Work Phone: 01-03-2022 Chief complaint Narrative - [...] per policy PH-9.. - , address, insurance [id number] Work Phone: 12-13-2021 History of Present illness Narrative Sparkle Hull) is 16 y.o female who lives with mother, step-father and goes to father's every other weekend. At his house are her step-brothers. She will be a senior [employer], has IEP for ASD. Current [...] well due to anxiety, trazodone does not helpSpedro cannot pinpoint triggers but says just always [...] diversion.I have the following concerns: no concerns. [facility] 204 Work Phone: 12-13-2021 Chief complaint Narrative - [...] per policy PH-9.. - , address, insurance [facility] [address] Work Phone: 07-12-2021 Chief complaint Narrative - [...] per policy PH-9.. - , address, insurance [place] [id number] Work Phone: 02-12-2021 Chief complaint Narrative - [...] as per policy PH-9.. - , address, [place] [id number] Work Phone: 11-20-2020 Chief complaint Narrative - [...] per policy PH-9.. - , address, insurance [place] [id number] Work Phone: 11-20-2020 Chief complaint Narrative - [...] per policy PH-9.. - , address, insurance [id number] Work Phone: 08-27-2020 History of Present illness Narrative Sparkle Hull) is 15 y.o female who lives with mother, step-father and goes to father's every other weekend. At his house are her step-brothers. She is in 10th grade at [employer], has IEP for ASD. Current medications are Intuniv, Adzenys, adderall IR for ADHD s/s, Prozac for OCD, general worries, depression, Trazodone for sleep. 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 ADHD s/s stable. Only uses short acting adderall when needed if has more homework, does not use as much over summer. She still finds herself tapping but feels this is related to being in band. 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 She will [...] She has been taking her medication daily. [id number] Work Phone: 08-27-2020 History of Present illness Narrative Sparkle Hull) is 15 y.o female who lives with mother, step-father and goes to father's every other weekend. At his house are her step-brothers. She is in 10th grade at [employer], has IEP for ASD. Current medications are Intuniv, Adzenys, adderall IR for ADHD s/s, Prozac for OCD, general worries, depression, Trazodone for sleep. 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 She will watch her brothers over the summer and applied to some stores. She will also be involved in [employer] program over the summer, wants to go [...] combination of a benzodiazepine and opioid? No. [id number][facility][id number] [facility] Work Phone: Evaluation + Plan note Future Appointments Appointment Date:05/20/2024 02:30:00 PM Scheduled Provider:ELISABET Richardson APRN, [place] [facility] Location:[facility] Appointment Type:URO Office Visit [facility] Evaluation note Diagnosis ADHD (attention deficit hyperactivity disorder), combined type (CMS/HCC) Attention deficit disorder with hyperactivity Anxiety Anxiety state, unspecified [facility] Diagnosis Hyperhidrosis- Primary Generalized hyperhidrosis documented [facility]* Diagnosis ADHD (attention deficit hyperactivity disorder), combined type (CMS/HCC) Attention deficit disorder with hyperactivity Anxiety Anxiety state, unspecified Insomnia, unspecified type documented [facility]* Diagnosis ADHD (attention deficit hyperactivity disorder), combined type (CMS/HCC) Attention deficit disorder with hyperactivity Anxiety Anxiety state, unspecified Insomnia, unspecified type Asperger syndrome (CMS/HCC) Major depressive disorder, recurrent episode, moderate (CMS/HCC) Major depressive disorder, recurrent episode, moderate [facility]* Diagnosis Polydipsia- Primary PCOS (polycystic ovarian syndrome) Polycystic ovaries Morbid obesity with BMI of 50.0-59.9, adult (CMS/HCC) Anxiety Anxiety state, unspecified ADHD (attention deficit hyperactivity disorder), combined type (CMS/HCC) Attention deficit disorder with hyperactivity Major depressive disorder, recurrent episode, moderate (CMS/HCC) Major depressive disorder, recurrent episode, moderate Prediabetes- Primary Other abnormal glucose Morbid obesity with BMI of 50.0-59.9, adult (CMS/HCC) Mixed hyperlipidemia (CMS/HCC) Mixed hyperlipidemia Major depressive disorder, recurrent episode, moderate (CMS/HCC) Major depressive disorder, recurrent episode, moderate Anxiety Anxiety state, unspecified Metabolic syndrome- Primary Dysmetabolic Syndrome X Rectal bleeding Hemorrhage of rectum and anus Prediabetes Other abnormal glucose Morbid obesity with BMI of 50.0-59.9, adult (CMS/HCC) Mixed hyperlipidemia ([facility]) Mixed hyperlipidemia Major depressive disorder, recurrent episode, moderate ([facility]) Major depressive disorder, recurrent episode, moderate Anxiety Anxiety state, unspecified Decreased urine stream- Primary Slowing of urinary stream Morbid obesity with BMI of 50.0-59.9, adult ([facility]) Dysuria Open wound of chest wall, unspecified laterality, initial encounter- Primary documented [facility]* Diagnosis Anxiety Anxiety state, unspecified ADHD (attention deficit hyperactivity disorder), combined type ([facility]) Attention deficit disorder with hyperactivity Asperger syndrome ([facility]) Major depressive disorder, recurrent episode, moderate ([facility]) ([facility]) Major depressive disorder, recurrent episode, moderate documented [facility]* Diagnosis Polydipsia- Primary PCOS (polycystic ovarian syndrome) Polycystic ovaries Morbid obesity with BMI of 50.0-59.9, adult ([facility]) Anxiety Anxiety state, unspecified ADHD (attention deficit hyperactivity disorder), combined type ([facility]) Attention deficit disorder with hyperactivity Major depressive disorder, recurrent episode, moderate ([facility]) Major depressive disorder, recurrent episode, moderate Prediabetes- Primary Other abnormal glucose Morbid obesity with BMI of 50.0-59.9, adult ([facility]) Mixed hyperlipidemia ([facility]) Mixed hyperlipidemia Major depressive disorder, recurrent episode, moderate ([facility]) Major depressive disorder, recurrent episode, moderate Anxiety Anxiety state, unspecified Metabolic syndrome- Primary Dysmetabolic Syndrome X Rectal bleeding Hemorrhage of rectum and anus Prediabetes Other abnormal glucose Morbid obesity with BMI of 50.0-59.9, adult ([facility]) Mixed hyperlipidemia ([facility]) Mixed hyperlipidemia Major depressive disorder, recurrent episode, moderate ([facility]) Major depressive disorder, recurrent episode, moderate Anxiety Anxiety state, unspecified Decreased urine stream- Primary Slowing of urinary stream Morbid obesity with BMI of 50.0-59.9, adult ([facility]) Dysuria ADHD (attention deficit hyperactivity disorder), combined type ([facility]) Attention deficit disorder with hyperactivity documented [facility]* Diagnosis Prediabetes Other abnormal glucose documented in this [facility]* Diagnosis Polydipsia- Primary PCOS (polycystic ovarian syndrome) Polycystic ovaries Morbid obesity with BMI of 50.0-59.9, adult ([facility]/HCC) Anxiety Anxiety state, unspecified ADHD (attention deficit hyperactivity disorder), combined type ([facility]/HCC) Attention deficit disorder with hyperactivity Major depressive disorder, recurrent episode, moderate (CMS/HCC) Major depressive disorder, recurrent episode, moderate Prediabetes- Primary Other abnormal glucose Morbid obesity with BMI of 50.0-59.9, adult ([facility]/HCC) Mixed hyperlipidemia (CMS/HCC) Mixed hyperlipidemia Major depressive disorder, recurrent episode, moderate (CMS/HCC) Major depressive disorder, recurrent episode, moderate Anxiety Anxiety state, unspecified Metabolic syndrome- Primary Dysmetabolic Syndrome X Rectal bleeding Hemorrhage of rectum and anus Prediabetes Other abnormal glucose Morbid obesity with BMI of 50.0-59.9, adult ([facility]/HCC) Mixed hyperlipidemia (CMS/HCC) Mixed hyperlipidemia Major depressive disorder, recurrent episode, moderate (CMS/HCC) Major depressive disorder, recurrent episode, moderate Anxiety Anxiety state, unspecified Decreased urine stream- Primary Slowing of urinary stream Morbid obesity with BMI of 50.0-59.9, adult ([facility]) Dysuria Anxiety Anxiety state, unspecified ADHD (attention deficit hyperactivity disorder), combined type ([facility]) Attention deficit disorder with hyperactivity documented [facility]* Diagnosis Polydipsia- Primary PCOS (polycystic ovarian syndrome) Polycystic ovaries Morbid obesity with BMI of 50.0-59.9, adult ([facility]) Anxiety Anxiety state, unspecified ADHD (attention deficit hyperactivity disorder), combined type ([facility]/HCC) Attention deficit disorder with hyperactivity Major depressive disorder, recurrent episode, moderate ([facility]/HCC) Major depressive disorder, recurrent episode, moderate Prediabetes- Primary Other abnormal glucose Morbid obesity with BMI of 50.0-59.9, adult ([facility]) Mixed hyperlipidemia ([facility]/HCC) Mixed hyperlipidemia Major depressive disorder, recurrent episode, moderate (CMS/HCC) Major depressive disorder, recurrent episode, moderate Anxiety Anxiety state, unspecified Metabolic syndrome- Primary Dysmetabolic Syndrome X Rectal bleeding Hemorrhage of rectum and anus Prediabetes Other abnormal glucose Morbid obesity with BMI of 50.0-59.9, adult ([facility]/HCC) Mixed hyperlipidemia (CMS/HCC) Mixed hyperlipidemia Major depressive disorder, recurrent episode, moderate (CMS/HCC) Major depressive disorder, recurrent episode, moderate Anxiety Anxiety state, unspecified Decreased urine stream- Primary Slowing of urinary stream Morbid obesity with BMI of 50.0-59.9, adult ([facility]) Dysuria Right acute otitis media- Primary Unspecified otitis media URI, acute Acute upper respiratory infections of unspecified site BMI 50.0-59.9, adult ([facility]) Morbid obesity ([facility]) Morbid obesity documented in this encounter [facility]* Diagnosis Polydipsia- Primary PCOS (polycystic ovarian syndrome) Polycystic ovaries Morbid obesity with BMI of 50.0-59.9, adult ([facility]) Anxiety Anxiety state, unspecified ADHD (attention deficit hyperactivity disorder), combined type ([facility]) Attention deficit disorder with hyperactivity Major depressive disorder, recurrent episode, moderate ([facility]) Major depressive disorder, recurrent episode, moderate Prediabetes- Primary Other abnormal glucose Morbid obesity with BMI of 50.0-59.9, adult ([facility]) Mixed hyperlipidemia ([facility]) Mixed hyperlipidemia Major depressive disorder, recurrent episode, moderate ([facility]) Major depressive disorder, recurrent episode, moderate Anxiety Anxiety state, unspecified Metabolic syndrome- Primary Dysmetabolic Syndrome X Rectal bleeding Hemorrhage of rectum and anus Prediabetes Other abnormal glucose Morbid obesity with BMI of 50.0-59.9, adult ([facility]) Mixed hyperlipidemia ([facility]) Mixed hyperlipidemia Major depressive disorder, recurrent episode, moderate ([facility]) Major depressive disorder, recurrent episode, moderate Anxiety Anxiety state, unspecified Decreased urine stream- Primary Slowing of urinary stream Morbid obesity with BMI of 50.0-59.9, adult ([facility]) Dysuria Right acute otitis media- Primary Unspecified otitis media URI, acute Acute upper respiratory infections of unspecified site BMI 50.0-59.9, adult ([facility]) Morbid obesity ([facility]) Morbid obesity Anxiety Anxiety state, unspecified ADHD (attention deficit hyperactivity disorder), combined type ([facility]) Attention deficit disorder with hyperactivity Insomnia, unspecified type Asperger syndrome ([facility]) Major depressive disorder, recurrent episode, moderate ([facility]) Major depressive disorder, recurrent episode, moderate documented in this encounter [facility]* Diagnosis Polydipsia- Primary PCOS (polycystic ovarian syndrome) Polycystic ovaries Morbid obesity with BMI of 50.0-59.9, adult ([facility]) Anxiety Anxiety state, unspecified ADHD (attention deficit hyperactivity disorder), combined type ([facility]) Attention deficit disorder with hyperactivity Major depressive disorder, recurrent episode, moderate ([facility]) Major depressive disorder, recurrent episode, moderate Prediabetes- Primary Other abnormal glucose Morbid obesity with BMI of 50.0-59.9, adult ([facility]) Mixed hyperlipidemia ([facility]) Mixed hyperlipidemia Major depressive disorder, recurrent episode, moderate ([facility]) Major depressive disorder, recurrent episode, moderate Anxiety Anxiety state, unspecified Metabolic syndrome- Primary Dysmetabolic Syndrome X Rectal bleeding Hemorrhage of rectum and anus Prediabetes Other abnormal glucose Morbid obesity with BMI of 50.0-59.9, adult ([facility]) Mixed hyperlipidemia ([facility]) Mixed hyperlipidemia Major depressive disorder, recurrent episode, moderate ([facility]) Major depressive disorder, recurrent episode, moderate Anxiety Anxiety state, unspecified Decreased urine stream- Primary Slowing of urinary stream Morbid obesity with BMI of 50.0-59.9, adult ([facility]) Dysuria Right acute otitis media- Primary Unspecified otitis media URI, acute Acute upper respiratory infections of unspecified site BMI 50.0-59.9, adult ([facility]) Morbid obesity ([facility]) Morbid obesity Anxiety Anxiety state, unspecified documented in this encounter [facility]* Diagnosis Polydipsia- Primary PCOS (polycystic ovarian syndrome) Polycystic ovaries Morbid obesity with BMI of 50.0-59.9, adult ([facility]) Anxiety Anxiety state, unspecified ADHD (attention deficit hyperactivity disorder), combined type ([facility]) Attention deficit disorder with hyperactivity Major depressive disorder, recurrent episode, moderate ([facility]) Major depressive disorder, recurrent episode, moderate Prediabetes- Primary Other abnormal glucose Morbid obesity with BMI of 50.0-59.9, adult ([facility]) Mixed hyperlipidemia ([facility]) Mixed hyperlipidemia Major depressive disorder, recurrent episode, moderate ([facility]) Major depressive disorder, recurrent episode, moderate Anxiety Anxiety state, unspecified Metabolic syndrome- Primary Dysmetabolic Syndrome X Rectal bleeding Hemorrhage of rectum and anus Prediabetes Other abnormal glucose Morbid obesity with BMI of 50.0-59.9, adult ([facility]) Mixed hyperlipidemia ([facility]) Mixed hyperlipidemia Major depressive disorder, recurrent episode, moderate ([facility]) Major depressive disorder, recurrent episode, moderate Anxiety Anxiety state, unspecified Decreased urine stream- Primary Slowing of urinary stream Morbid obesity with BMI of 50.0-59.9, adult ([facility]) Dysuria Right acute otitis media- Primary Unspecified otitis media URI, acute Acute upper respiratory infections of unspecified site BMI 50.0-59.9, adult ([facility]) Morbid obesity ([facility]) Morbid obesity Anxiety Anxiety state, unspecified [facility]* Diagnosis Polydipsia- Primary PCOS (polycystic ovarian syndrome) Polycystic ovaries Morbid obesity with BMI of 50.0-59.9, adult ([facility]) Anxiety Anxiety state, unspecified ADHD (attention deficit hyperactivity disorder), combined type ([facility]) Attention deficit disorder with hyperactivity Major depressive disorder, recurrent episode, moderate ([facility]) Major depressive disorder, recurrent episode, moderate Prediabetes- Primary Other abnormal glucose Morbid obesity with BMI of 50.0-59.9, adult ([facility]) Mixed hyperlipidemia ([facility]) Mixed hyperlipidemia Major depressive disorder, recurrent episode, moderate ([facility]) Major depressive disorder, recurrent episode, moderate Anxiety Anxiety state, unspecified Metabolic syndrome- Primary Dysmetabolic Syndrome X Rectal bleeding Hemorrhage of rectum and anus Prediabetes Other abnormal glucose Morbid obesity with BMI of 50.0-59.9, adult ([facility]) Mixed hyperlipidemia ([facility]) Mixed hyperlipidemia Major depressive disorder, recurrent episode, moderate ([facility]) Major depressive disorder, recurrent episode, moderate Anxiety Anxiety state, unspecified Decreased urine stream- Primary Slowing of urinary stream Morbid obesity with BMI of 50.0-59.9, adult ([facility]) Dysuria Right acute otitis media- Primary Unspecified otitis media URI, acute Acute upper respiratory infections of unspecified site BMI 50.0-59.9, adult ([facility]) Morbid obesity ([facility]) Morbid obesity Anxiety Anxiety state, unspecified ADHD (attention deficit hyperactivity disorder), combined type ([facility]) Attention deficit disorder with hyperactivity documented in this encounter [facility]* Diagnosis Polydipsia- Primary PCOS (polycystic ovarian syndrome) Polycystic ovaries Morbid obesity with BMI of 50.0-59.9, adult ([facility]) Anxiety Anxiety state, unspecified ADHD (attention deficit hyperactivity disorder), combined type ([facility]) Attention deficit disorder with hyperactivity Major depressive disorder, recurrent episode, moderate ([facility]) Major depressive disorder, recurrent episode, moderate Prediabetes- Primary Other abnormal glucose Morbid obesity with BMI of 50.0-59.9, adult ([facility]) Mixed hyperlipidemia ([facility]) Mixed hyperlipidemia Major depressive disorder, recurrent episode, moderate ([facility]) Major depressive disorder, recurrent episode, moderate Anxiety Anxiety state, unspecified Metabolic syndrome- Primary Dysmetabolic Syndrome X Rectal bleeding Hemorrhage of rectum and anus Prediabetes Other abnormal glucose Morbid obesity with BMI of 50.0-59.9, adult ([facility]) Mixed hyperlipidemia ([facility]) Mixed hyperlipidemia Major depressive disorder, recurrent episode, moderate ([facility]) Major depressive disorder, recurrent episode, moderate Anxiety Anxiety state, unspecified Decreased urine stream- Primary Slowing of urinary stream Morbid obesity with BMI of 50.0-59.9, adult ([facility]) Dysuria Right acute otitis media- Primary Unspecified otitis media URI, acute Acute upper respiratory infections of unspecified site BMI 50.0-59.9, adult ([facility]) Morbid obesity ([facility]) Morbid obesity Anxiety Anxiety state, unspecified documented in this encounter [facility]* Diagnosis Polydipsia- Primary PCOS (polycystic ovarian syndrome) Polycystic ovaries Morbid obesity with BMI of 50.0-59.9, adult ([facility]) Anxiety Anxiety state, unspecified ADHD (attention deficit hyperactivity disorder), combined type ([facility]) Attention deficit disorder with hyperactivity Major depressive disorder, recurrent episode, moderate ([facility]) Major depressive disorder, recurrent episode, moderate Prediabetes- Primary Other abnormal glucose Morbid obesity with BMI of 50.0-59.9, adult ([facility]) Mixed hyperlipidemia ([facility]) Mixed hyperlipidemia Major depressive disorder, recurrent episode, moderate ([facility]) Major depressive disorder, recurrent episode, moderate Anxiety Anxiety state, unspecified Metabolic syndrome- Primary Dysmetabolic Syndrome X Rectal bleeding Hemorrhage of rectum and anus Prediabetes Other abnormal glucose Morbid obesity with BMI of 50.0-59.9, adult ([facility]) Mixed hyperlipidemia ([facility]) Mixed hyperlipidemia Major depressive disorder, recurrent episode, moderate ([facility]) Major depressive disorder, recurrent episode, moderate Anxiety Anxiety state, unspecified Decreased urine stream- Primary Slowing of urinary stream Morbid obesity with BMI of 50.0-59.9, adult ([facility]) Dysuria Right acute otitis media- Primary Unspecified otitis media URI, acute Acute upper respiratory infections of unspecified site BMI 50.0-59.9, adult ([facility]) Morbid obesity ([facility]) Morbid obesity Anxiety Anxiety state, unspecified ADHD (attention deficit hyperactivity disorder), combined type ([facility]) Attention deficit disorder with hyperactivity Asperger syndrome ([facility]) Major depressive disorder, recurrent episode, moderate ([facility]) Major depressive disorder, recurrent episode, moderate documented in this encounter [facility]* Diagnosis Polydipsia- Primary PCOS (polycystic ovarian syndrome) Polycystic ovaries Morbid obesity with BMI of 50.0-59.9, adult ([facility]) Anxiety Anxiety state, unspecified ADHD (attention deficit hyperactivity disorder), combined type ([facility]) Attention deficit disorder with hyperactivity Major depressive disorder, recurrent episode, moderate ([facility]) Major depressive disorder, recurrent episode, moderate Prediabetes- Primary Other abnormal glucose Morbid obesity with BMI of 50.0-59.9, adult ([facility]) Mixed hyperlipidemia ([facility]) Mixed hyperlipidemia Major depressive disorder, recurrent episode, moderate ([facility]) Major depressive disorder, recurrent episode, moderate Anxiety Anxiety state, unspecified Metabolic syndrome- Primary Dysmetabolic Syndrome X Rectal bleeding Hemorrhage of rectum and anus Prediabetes Other abnormal glucose Morbid obesity with BMI of 50.0-59.9, adult ([facility]) Mixed hyperlipidemia ([facility]) Mixed hyperlipidemia Major depressive disorder, recurrent episode, moderate ([facility]) Major depressive disorder, recurrent episode, moderate Anxiety Anxiety state, unspecified Decreased urine stream- Primary Slowing of urinary stream Morbid obesity with BMI of 50.0-59.9, adult ([facility]) Dysuria Right acute otitis media- Primary Unspecified otitis media URI, acute Acute upper respiratory infections of unspecified site BMI 50.0-59.9, adult ([facility]) Morbid obesity ([facility]) Morbid obesity Anxiety Anxiety state, unspecified ADHD (attention deficit hyperactivity disorder), combined type ([facility]) Attention deficit disorder with hyperactivity Asperger syndrome ([facility]) Major depressive disorder, recurrent episode, moderate ([facility]) Major depressive disorder, recurrent episode, moderate documented in this encounter [facility]* Diagnosis Polydipsia- Primary PCOS (polycystic ovarian syndrome) Polycystic ovaries Morbid obesity with BMI of 50.0-59.9, adult ([facility]) Anxiety Anxiety state, unspecified ADHD (attention deficit hyperactivity disorder), combined type Attention deficit disorder with hyperactivity Major depressive disorder, recurrent episode, moderate (H[facility]) Major depressive disorder, recurrent episode, moderate Prediabetes- Primary Other abnormal glucose Morbid obesity with BMI of 50.0-59.9, adult ([facility]) Mixed hyperlipidemia Mixed hyperlipidemia Major depressive disorder, recurrent episode, moderate (HCC) Major depressive disorder, recurrent episode, moderate Anxiety Anxiety state, unspecified Metabolic syndrome- Primary Dysmetabolic Syndrome X Rectal bleeding Hemorrhage of rectum and anus Prediabetes Other abnormal glucose Morbid obesity with BMI of 50.0-59.9, adult ([facility]) Mixed hyperlipidemia Mixed hyperlipidemia Major depressive disorder, recurrent episode, moderate (HCC) Major depressive disorder, recurrent episode, moderate Anxiety Anxiety state, unspecified Decreased urine stream- Primary Slowing of urinary stream Morbid obesity with BMI of 50.0-59.9, adult ([facility] Dysuria Right acute otitis media- Primary Unspecified otitis media URI, acute Acute upper respiratory infections of unspecified site BMI 50.0-59.9, adult ([facility]) Morbid obesity ([facility]) Morbid obesity Anxiety Anxiety state, unspecified documented in this encounter [facility]* Diagnosis Polydipsia- Primary PCOS (polycystic ovarian syndrome) Polycystic ovaries Morbid obesity with BMI of 50.0-59.9, adult ([facility]) Anxiety Anxiety state, unspecified ADHD (attention deficit hyperactivity disorder), combined type Attention deficit disorder with hyperactivity Major depressive disorder, recurrent episode, moderate (HCC) Major depressive disorder, recurrent episode, moderate Prediabetes- Primary Other abnormal glucose Morbid obesity with BMI of 50.0-59.9, adult ([facility]) Mixed hyperlipidemia Mixed hyperlipidemia Major depressive disorder, recurrent episode, moderate (HCC) Major depressive disorder, recurrent episode, moderate Anxiety Anxiety state, unspecified Metabolic syndrome- Primary Dysmetabolic Syndrome X Rectal bleeding Hemorrhage of rectum and anus Prediabetes Other abnormal glucose Morbid obesity with BMI of 50.0-59.9, adult ([facility]) Mixed hyperlipidemia Mixed hyperlipidemia Major depressive disorder, recurrent episode, moderate (HCC) Major depressive disorder, recurrent episode, moderate Anxiety Anxiety state, unspecified Decreased urine stream- Primary Slowing of urinary stream Morbid obesity with BMI of 50.0-59.9, adult ([facility]) Dysuria Right acute otitis media- Primary Unspecified otitis media URI, acute Acute upper respiratory infections of unspecified site BMI 50.0-59.9, adult ([facility]) Morbid obesity ([facility]) Morbid obesity Anxiety Anxiety state, unspecified Insomnia, unspecified type documented in this encounter [facility]* Diagnosis Polydipsia- Primary PCOS (polycystic ovarian syndrome) Polycystic ovaries Morbid obesity with BMI of 50.0-59.9, adult ([facility]) Anxiety Anxiety state, unspecified ADHD (attention deficit hyperactivity disorder), combined type Attention deficit disorder with hyperactivity Major depressive disorder, recurrent episode, moderate (HCC) Major depressive disorder, recurrent episode, moderate Prediabetes- Primary Other abnormal glucose Morbid obesity with BMI of 50.0-59.9, adult ([facility]) Mixed hyperlipidemia Mixed hyperlipidemia Major depressive disorder, recurrent episode, moderate (HCC) Major depressive disorder, recurrent episode, moderate Anxiety Anxiety state, unspecified Metabolic syndrome- Primary Dysmetabolic Syndrome X Rectal bleeding Hemorrhage of rectum and anus Prediabetes Other abnormal glucose Morbid obesity with BMI of 50.0-59.9, adult ([facility]) Mixed hyperlipidemia Mixed hyperlipidemia Major depressive disorder, recurrent episode, moderate (HCC) Major depressive disorder, recurrent episode, moderate Anxiety Anxiety state, unspecified Decreased urine stream- Primary Slowing of urinary stream Morbid obesity with BMI of 50.0-59.9, adult ([facility]) Dysuria Right acute otitis media- Primary Unspecified otitis media URI, acute Acute upper respiratory infections of unspecified site BMI 50.0-59.9, adult ([facility]) Morbid obesity ([facility]) Morbid obesity Anxiety Anxiety state, unspecified ADHD (attention deficit hyperactivity disorder), combined type Attention deficit disorder with hyperactivity Asperger syndrome (HCC) documented in this encounter [facility]* Diagnosis Polydipsia- Primary PCOS (polycystic ovarian syndrome) Polycystic ovaries Morbid obesity with BMI of 50.0-59.9, adult ([facility]) Anxiety Anxiety state, unspecified ADHD (attention deficit hyperactivity disorder), combined type Attention deficit disorder with hyperactivity Major depressive disorder, recurrent episode, moderate (HCC) Major depressive disorder, recurrent episode, moderate Prediabetes- Primary Other abnormal glucose Morbid obesity with BMI of 50.0-59.9, adult ([facility]) Mixed hyperlipidemia Mixed hyperlipidemia Major depressive disorder, recurrent episode, moderate (HCC) Major depressive disorder, recurrent episode, moderate Anxiety Anxiety state, unspecified Metabolic syndrome- Primary Dysmetabolic Syndrome X Rectal bleeding Hemorrhage of rectum and anus Prediabetes Other abnormal glucose Morbid obesity with BMI of 50.0-59.9, adult ([facility]) Mixed hyperlipidemia Mixed hyperlipidemia Major depressive disorder, recurrent episode, moderate (HCC) Major depressive disorder, recurrent episode, moderate Anxiety Anxiety state, unspecified Decreased urine stream- Primary Slowing of urinary stream Morbid obesity with BMI of 50.0-59.9, adult ([facility]) Dysuria Right acute otitis media- Primary Unspecified otitis media URI, acute Acute upper respiratory infections of unspecified site BMI 50.0-59.9, adult ([facility]) Morbid obesity ([facility]) Morbid obesity Prediabetes- Primary Other abnormal glucose PCOS (polycystic ovarian syndrome) Polycystic ovaries Morbid obesity ([facility]) Morbid obesity Mixed hyperlipidemia Mixed hyperlipidemia Metabolic syndrome Dysmetabolic Syndrome X documented in this encounter [facility] N[facility]* Sparkle Hull) is 15 y.o female who lives with mother, step-father and goes to father's every other weekend. At his house are her step-brothers. 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 Current medications are Intuniv, Adzenys, adderall IR for ADHD s/s, Prozac for OCD, general worries, depression, Trazodone for sleep. No reported side effects with medication. * Last seen in October * Oseas states summer was pretty good, she has been in [place] [employer], [facility], [facility]. She went [employer] and to [employer] also. 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 * This Thursday is their first game and they are playing at [employer] [facility] * weight is about 280 lbs * has a physical Thursday * I have personally reviewed the OARRS report for SPARKLE PACHECO. I have considered the risks of abuse, dependence, addiction and diversion. * I have the following concerns: no concerns. * Is the patient prescribed a combination of a benzodiazepine and opioid? No. [id number] 204 Work Phone: History of Present illness Narrative* Sparkle is a 15 year old here today with mother for routine health maintenance exam. * Parental Concerns Raised Today Include: No new concerns today. * Mental health: Controlled with ADHD and Anxiety. * Endocrinology: Referred to Dr. Whitaker-has not f/u. * Diet: trying to maintain balance. Started using an sharon lately, counting calories. She overeats. Notpicky. Snacker. [...] being with. * Activities: Exercises just with [employer] hobbies/interests including: Enjoys [employer]. Trap shooting. * Sports Participation Screening: No [...] not had any serious prior vaccine reactions. [facility] Work Phone: History of Present illness Narrative* Sparkle Hull) is 15 y.o female who lives with mother, step-father and goes to father's every other weekend. At his house are her step-brothers. 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 Current medications are Intuniv, Adzenys, adderall IR for ADHD s/s, Prozac for OCD, general worries, depression, Trazodone for sleep. No reported side effects with medication. * Last seen in October * Oseas states summer was pretty good, she has been in [employer], [facility], [facility]. She went [employer] and to [employer] also. 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 * This Thursday is their first game and they are playing at [employer] [facility] * weight is about 280 lbs * has a physical Thursday [id number] Work Phone: History of Present illness Narrative* Sparkle Hull) is 15 y.o female who lives with mother, step-father and goes to father's every other weekend. At his house are her step-brothers. 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 Current medications [...] combination of a benzodiazepine and opioid? No. [id number]-[id number] 204 Work Phone: History of Present illness Narrative* Sparkle Hull) is 16 y.o female who lives with mother, step-father and goes to father's every other weekend. At his house are her step-brothers. 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 Current medications [...] felt she had a good week at [employer], busy and did not call her at [...] Mother states Oseas gets like this [facility], usually feels better once it starts. Mother states she has had to talk to the director before, but also Oseas can be very sensitive and have a hard time to brush off comments. Oseas still says her mood can be down and not motivated. * Mother says she is not pointing out any of the positives, went to [employer], has spent time with her friend, made some friends at [employer]. Oseas states the kids at [employer] she was friends with were weirdlike her, [...] PCP in the past helped acute anxiety [id number]-[id number] 204 Work Phone: History of Present illness Narrative* Sparkle Hull) is 16 y.o female who lives with mother, step-father and goes to father's every other weekend. At his house are her step-brothers. She will be a senior [employer], has IEP for ASD. Current [...] on band camp days. * She says [employer] is going well, she knows all her [...] in 2017 never able to get PA [id number]-[id number]-[id number] 204 Work Phone: History of Present illness Narrative* Sparkle Hull) is 16 y.o female who lives with mother, step-father and goes to father's every other weekend. At his house are her step-brothers. She will be a senior [employer], has IEP for ASD. Current [...] been called annoying in a while at band camp. Her step-father says at first she was showing progress with the Vyvanse, but again needs many reminders, can have lack of focus or hyperfoucs. Sparkle agrees she saw greater impact when first changed. * Oseas states her mood has been good. She is looking forward to school starting. 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 At his house are her step-brothers. She is a senior [employer], has IEP for ASD. Current [...] for next year, able to continue in [employer] program though her current school for next year. Would like to go into [employer]. * No bothersome OCD symptoms, only counting [...] * Adzenys - lacked efficacy over time [id number]-[id number] 204 Work Phone: Hospital course Narrative No data available for this section [facility] Hospital Discharge instructions No data available for this section [facility] Progress note No data available for this section [facility] Summary Purpose Family History Grandfather Name Dates Details Family history of [...] Chief Complaint 15 year WCCAccompanied by mother. Reason for Referral Referred by: Rafael ZARAGOZA, Inga Lopez Additional Source Comments INFORMATION SOURCE (unrecogn ized section and content) DATE CREATED AUTHOR 04/06/2018 [facility] DATE CREATED AUTHOR AUTHOR'S ORGANIZ ATION 09/02/2018 [facility] DATE CREATED AUTHOR AUTHOR'S ORGANIZ ATION 08/10/2021 [facility] DATE CREATED AUTHOR AUTHOR'S ORGANIZ ATION 08/08/2022 [facility] DATE CREATED AUTHOR AUTHOR'S ORGANIZ ATION 05/24/2024 [facility] DATE CREATED AUTHOR AUTHOR'S ORGANIZ ATION 01/08/2025 [facility] [employer] Care Teams (unrecognized sec tion and content) Commodities Manager Relationship Specialty Start Date End Date Shaikh Noriega MD PCP - General Internal Medicine 02/27/23 Commodities Manager Relationship Specialty Start Date End Date Shaikh Noriega MD PCP - General Internal Medicine 02/27/23 Commodities Manager Relationship Specialty Start Date End Date Justin Garcia MD [address] [place] [address] PCP - General Family Medicine 08/20/23 Kim Lutz NP [address] [place] [id number] PCP - [employer] 01/28/24 Kim Lutz NP [address] [place] [phone] Nurse Practitioner Family Medicine 02/24/24 Commodities Manager Relationship Specialty Start Date End Date Justin Garcia MD [address] [place] [phone] PCP - General Family Medicine 08/20/23 Kim Lutz NP [address] [place] [phone] PCP - [employer] 01/28/24 Kim Lutz NP [address] [place] [phone] Nurse Practitioner Family Medicine 02/24/24 Commodities Manager Relationship Specialty Start Date End Date Justin Garcia MD [address] [place] [phone] PCP - General Family Medicine 08/20/23 Kim Lutz NP [address] [place] [phone] PCP - [employer] 01/28/24 Kim Lutz NP [address] [place] [phone] Nurse Practitioner Family Medicine 02/24/24 Commodities Manager Relationship Specialty Start Date End Date Justin Garcia MD [address] [place] [phone] PCP - General Family Medicine 08/20/23 Kim Lutz NP [address] [place] [phone] PCP - [employer] 01/28/24 Kim Lutz NP [address] [place] [phone] Nurse Practitioner Family Medicine 02/24/24 Commodities Manager Relationship Specialty Start Date End Date Justin Garcia MD [address] [place] [phone] PCP - General Family Medicine 08/20/23 Kim Lutz NP [address] [place] [phone] PCP - [employer] 01/28/24 Kim Lutz NP [address] [place] [phone] Nurse Practitioner Family Medicine 02/24/24 Commodities Manager Relationship Specialty Start Date End Date Justin Garcia MD [address] [place] [phone] PCP - General Family Medicine 08/20/23 Kim Lutz NP [address] [place] [phone] PCP - [employer] 01/28/24 Kim Lutz NP [address] [place] [phone] Nurse Practitioner Family Medicine 02/24/24 Commodities Manager Relationship Specialty Start Date End Date Justin Garcia MD [address] [address] [place] [address] PCP - General Family Medicine 08/20/23 Kim Lutz NP [address] [place] [address] Nurse Practitioner Family Medicine 02/24/24 Commodities Manager Relationship Specialty Start Date End Date Justin Garcia MD [address] [place] [address] PCP - General Family Medicine 08/20/23 Kim Lutz NP [address] [place] [address] PCP - [employer] 01/28/24 Kim Lutz NP [address] [place] [address] Nurse Practitioner Family Medicine 02/24/24 Commodities Manager Relationship Specialty Start Date End Date Justin Garcia MD [address] [place] [address] PCP - General Family Medicine 08/20/23 Commodities Manager Relationship Specialty Start Date End Date Justin Garcia MD [address] [place] [address] PCP - General Family [facility] 08/20/23 Kim Lutz NP [address] [place] [address] Nurse Practitioner Family Medicine 02/24/24 Commodities Manager Relationship Specialty Start Date End Date Justin Garcia MD [address] [place] [address] PCP - General Family Medicine 08/20/23 Kim Lutz NP [address] [place] [address] PCP - [facility] 01/28/24 Kim Lutz NP [address] [place] [address] Nurse Practitioner Family Medicine 02/24/24 Commodities Manager Relationship Specialty Start Date End Date Justin Garcia MD [address] [place] [address] PCP - General Family Medicine 08/20/23 Kim Lutz NP [address] [place] [address] Nurse Practitioner Family Medicine 02/24/24 Commodities Manager Relationship Specialty Start Date End Date Justin Garcia MD [address] [place] [address] PCP - General Family Medicine 08/20/23 Kim Lutz NP [address] [place] [address] PCP - [employer] 01/28/24 Kim Lutz NP [address] [place] [address] Nurse Practitioner Family Medicine 02/24/24 Commodities Manager Relationship Specialty Start Date End Date Justin Garcia MD [address] [place] [address] PCP - General Family Medicine 08/20/23 Kim Lutz NP [address] [place] [address] PCP - [employer] 01/28/24 Kim Lutz NP [address] [place] [address] Nurse Practitioner Family Medicine 02/24/24 Commodities Manager Relationship Specialty Start Date End Date Justin Garcia MD [address] [place] [address] PCP - General Family Medicine 08/20/23 Kim Lutz NP [address] [place] [address] PCP - [employer] 01/28/24 Kim Lutz NP [address] [place] [address] Nurse Practitioner Family Medicine 02/24/24 Commodities Manager Relationship Specialty Start Date End Date Justin Garcia MD [address] [place] [address] PCP - General Family Medicine 08/20/23 Kim Lutz NP [address] [place] [address] PCP - [employer] 01/28/24 Kim Lutz NP [address] [place] [address] Nurse Practitioner Family Medicine 02/24/24 Commodities Manager Relationship Specialty Start Date End Date Justin Garcia MD [address] [place] [address] PCP - General Family Medicine 08/20/23 Kim Lutz NP [address] [place] [address]256[address] PCP - [employer] 01/28/24 Kim Lutz NP [address] [place] [address] Nurse Practitioner Family Medicine 02/24/24 Commodities Manager Relationship Specialty Start Date End Date Justin Garcia MD [address] [place] [address] PCP - General Family Medicine 08/20/23 Kim Lutz, JANNA [address] [place] [address] PCP - [facility] 01/28/24 Kim Lutz, JANNA [address] [place] [address] Nurse Practitioner Family Medicine 02/24/24 Chelsea Rosa, [facility] [address] [facility] [address] [place] [address] [facility] 07/12/24 Rodriguez Weaver, NEWSPAPER EDITOR-LITHOPLATE MAKER [address] [facility] [address] [place] [address] Nurse Practitioner Psychiatry 07/12/24 Commodities Manager Relationship Specialty Start Date End Date Justin Garcia MD [address] [place] [address] PCP - General Family Medicine 08/20/23 Kim Lutz, JANNA [address] [place] [address] Nurse Practitioner Family Medicine 02/24/24 Chelsea Rosa, [facility] [address] [facility] [address] [place] [address] [facility] 07/12/24 Rodriguez Weaver NEWSPAPER EDITOR-LITHOPLATE MAKER [address] [facility] [address] [place] [address] Nurse Practitioner Psychiatry 07/12/24 Commodities Manager Relationship Specialty Start Date End Date Justin Garcia MD [address] [place] [address] PCP - General Family Medicine 08/20/23 Kim Lutz, JANNA [address] [place] [address] Nurse Practitioner Family Medicine 02/24/24 Chelsea Rosa, [facility] [address] [place] [address] [place] [address] [facility] 07/12/24 Rodriguez Weaver NEWSPAPER EDITOR-LITHOPLATE MAKER [address] [place] [address] [place] [address] Nurse Practitioner Psychiatry 07/12/24 Commodities Manager Relationship Specialty Start Date End Date uJstin Garcia MD [address] [place] [address] PCP - General Family Medicine 08/20/23 Kim Lutz, JANNA [address] [place] [address] Nurse Practitioner Family Medicine 02/24/24 Chelsea Rosa [facility] [address] [place] [address] [place] [address] [facility] 07/12/24 Rodriguez Weaver NEWSPAPER EDITOR-LITHOPLATE MAKER [address] [place] [address] [place] [address] Nurse Practitioner Psychiatry 07/12/24 Commodities Manager Relationship Specialty Start Date End Date Justin Garcia MD [address] [place] [address] PCP - General Family Medicine 08/20/23 Kim Lutz, JANNA [address] [place] [address] Nurse Practitioner Family Medicine 02/24/24 Chelsea Rosa [facility] [address] [place] [address] [place] [address] [facility] 07/12/24 Rodriguez Weaver NEWSPAPER EDITOR-LITHOPLATE MAKER [address] [facility] [address] [place] [address] Nurse Practitioner Psychiatry 07/12/24 Commodities Manager Relationship Specialty Start Date End Date Justin Garcia MD [address] [place] [address] PCP - General Family Medicine 08/20/23 Kim Lutz, JANNA [address] [place] [address] Nurse Practitioner Family Medicine 02/24/24 Chelsea Rosa [facility] [address] [place] [address] [place] [address] [facility] 07/12/24 Rodriguez Weaver NEWSPAPER EDITOR-LITHOPLATE MAKER [address] [facility] [address] [place] [address] Nurse Practitioner Psychiatry 07/12/24 Commodities Manager Relationship Specialty Start Date End Date Justin Garcia MD [address] [place] [address] PCP - General Family Medicine 08/20/23 Kim Lutz, JANNA [address] [place] [address] Nurse Practitioner Family Medicine 02/24/24 [facility] [address] [place] [address] [place] [address] [facility] 07/12/24 Rodriguez Weaver, NEWSPAPER EDITOR-[facility] [address] [facility] [address] [place] [address] Nurse Practitioner Psychiatry 07/12/24 Commodities Manager Relationship Specialty Start Date End Date Justin Garcia MD [address] [place] [address] PCP - General Family Medicine 08/20/23 Kim Lutz, FISCAL MANAGER [address] [place] [address] Nurse Practitioner Family Medicine 02/24/24 [facility] [address] [place] [address] [place] [address] [facility] 07/12/24 Rodriguez Weaver, NEWSPAPER EDITOR-[facility] [address] [facility] [address] [place] [address] Nurse Practitioner Psychiatry 07/12/24 Commodities Manager Relationship Specialty Start Date End Date Justni Garcia MD [address] [place] [address] PCP - General Family Medicine 08/20/23 Kim Lutz NP [address] [place] [address] Nurse Practitioner Family Medicine 02/24/24 Chelsea Rosa, [facility] [address] [place] [address] [place] [address] [facility] 07/12/24 Rodriguez Weaver, [facility] [address] [address] Nurse Practitioner Psychiatry 07/12/24 Reason for Visit (unrecogniz ed section and content) Reason Comments Psychiatric Evaluation [facility] referral Specialty Diagnoses / Procedures Referred By Tanvi barrett Referred To Contact Psychiatry / Behavioral Health Diagnoses ADHD (attention deficit hyperactivity disorder), combined type ([facility]) Procedures CT OFFICE/OUTPATIENT NEW HIGH MDM 60-74 MINUTES Kim Lutz NP [address] [place] [address] Rodriguez Weaver, [facility] [address] [facility] [address] [place] [address] Referral ID Status Reason Start Date Expiration Date V isits Requested Visits Authorized [id number] Closed Specialty Services Required 05/26/2023 11/22/2023 1 1 Reason Comments Med Management Follow-up Reason Comments Follow-up Reason Onset Date Comments Med Refill 06/07/2024 Reason Comments Sinusitis Earache Reason Onset Date Comments Med Refill 08/04/2024 Reason Onset Date Comments Med Refill 09/05/2024 Reason Onset Date Comments Med Refill 12/01/2024 Reason Onset Date Comments Med Refill 12/27/2024 FOR RECORDS PERTAINING TO PATIENTS WHO ARE [...] BE BASED ON THE PRIMARY CLINICAL RECORDS. [facility] [employer], [facility]. provides no warranty or guarantee of the accuracy or completeness of information in this document.
[2025-01-14 11:52] LABS: Alanine Aminotransferase 38 U/L (14-59); Albumin Globulin Ratio 0.8; Albumin Level 3.4 g/dL (3.4-5.0); Alkaline Phosphatase 82 U/L (46-116); Anion Gap 16.2; Aspartate Amino Transferase 16 U/L (15-37); Blood Urea Nitrogen 10.0 mg/dL (7.0-18.0); Calcium 9.1 mg/dL (8.5-10.1); Carbon Dioxide 25.0 mmol/L (21.0-32.0); Chloride 107 mmol/L (98-107); Cholesterol 205 mg/dL (<=200); Estimated GFR (African America >60 (>=60 mL/min/1.73m^2); Estimated GFR (Non-African Ame >60 (>=60 mL/min/1.73m^2); Globulin 4.1 g/dL; Glucose 113 mg/dL (74-106); HDL Cholesterol 46 mg/dL (40-60); Potassium 4.2 mmol/L (3.5-5.1); Sodium 144 mmol/L (136-145); Total Protein 7.5 g/dL (6.4-8.2); Triglycerides 162 mg/dL (<=150); VLDL CHOLESTEROL 32.4 mg/dL
[2025-01-14 11:59] LABS: Thyroid Stimulating Hormone 1.513 uIU/mL (0.358-3.740)
[2025-01-14 12:00] LABS: Hematocrit 40.6 % (36.0-48.0); Hemoglobin 13.0 g/dL (12.0-16.0); Immature Granulocytes Abs Auto 0.03 10^3/uL (0.00-0.03); Immature Granulocytes Pct Auto 0.3 % (0.0-0.5); Lymphocytes Absolute Auto 3.8 10^3/uL (1.2-3.8); Mean Corpuscular HGB Conc 32.0 g/dL (29.9-35.2); Mean Corpuscular Hemoglobin 29.1 pg (26.7-34.0); Mean Corpuscular Volume 90.8 fL (81.0-99.0); Platelet Count 240 10^3/uL (150-450); Red Blood Count 4.47 10^6/uL (4.20-5.40); White Blood Count 11.8 10^3/uL (4.0-11.0)
[2025-01-14 12:06] LABS: Glucose Urine UA NEGATIVE (NEGATIVE)
[2025-01-14 12:10] LABS: Cast Seen? NONE SEEN #/LPF (NONE SEEN); Crystals Seen? None Seen #/HPF (None Seen)
== END 2025-01-14 10:47 | disposition home or self-care (01) ==
LOC: LAB 10:47
PROVIDERS: PCP Nurse Practitioner; Visit Provider Nurse Practitioner
DX: R73.03 Prediabetes (principal); E66.01 Morbid (severe) obesity due to excess calories; E28.2 Polycystic ovarian syndrome; E78.2 Mixed hyperlipidemia
CPT/HCPCS: 36415; 80053; 80061; 81001; 82043; 82570; 83036; 84443; 85025